=== PATIENT | male | born 1945 | race Caucasian/White ===

== ENCOUNTER 2016-12-29 08:47 | Day surgery (SDC) | payer MEDICARE, BC ==
[2016-12-28 13:00] VITALS: BMI 20.7
[~2016-12-29 08:47] MED LIST: LIDOCAINE 1% 20 ML VIAL (10MG/ML) FOR IV START INTRADERMA PRN
[2016-12-29] MEDS: LACTATED RINGERS 1,000 ML IV SCH ×2 (09:50→09:59)
[2016-12-29 09:59] VITALS: TEMP 98
[2016-12-29] MEDS ORDERED: PROPOFOL 10 MG/ML 20 ML VIAL IV ONE (10:03)
[2016-12-29] MEDS ORDERED: LIDOCAINE 1% INJ 10MG/ML (20 ML MDV) ONE (10:03)
--- NOTE | 2016-12-29 10:19 | P.GSHP ---
History of Present Illness H&P Date: 12/29/16 Chief Complaint: Change in bowel habits Patient here today for colonoscopy. He describes worsening constipation recently. No rectal bleeding or melena. Last colonoscopy approximately 5 years ago which was normal. Past Medical History Past Medical History: Blood Disorder, GERD/Reflux, Hypertension Additional Past Medical History / Comment(s): HX of Stomach ulcer., Anemia, Constipation. History of Any Multi-Drug Resistant Organisms: None Reported Past Surgical History: Back Surgery, Tonsillectomy Additional Past Surgical History / Comment(s): laminectomy. Left middle finger surgery. Past Anesthesia/Blood Transfusion Reactions: No Reported Reaction Past Psychological History: No Psychological Hx Reported Smoking Status: Current every day smoker Past Alcohol Use History: Occasional Additional Past Alcohol Use History / Comment(s): SMOKES A PIPE. QUIT SMOKING CIGARETTES 15 YEARS AGO. Past Drug Use History: None Reported - Past Family History Father Family Medical History: Cancer Additional Family Medical History / Comment(s): . Mother Family Medical History: GI Bleed Medications and Allergies Home Medications Medication Instructions Recorded Confirmed Type amLODIPine [Norvasc] 5 mg PO BID 08/05/15 12/29/16 History Moexipril HCl [Univasc] 15 mg PO BID 08/06/15 12/29/16 History Omeprazole 20 mg PO BID 08/06/15 12/29/16 History Bisacodyl [Dulcolax] 5 mg PO DAILY PRN 12/28/16 12/29/16 History Allergies Allergy/AdvReac Type Severity Reaction Status Date / Time No Known Allergies Allergy Verified 12/29/16 09:41 Surgical - Exam Vital Signs Temp Pulse Resp BP Pulse Ox 98.0 F 81 18 169/84 98 12/29/16 09:57 12/29/16 09:57 12/29/16 09:57 12/29/16 09:57 12/29/16 09:57 Physical exam: General: Well-developed, well-nourished HEENT: Normocephalic, sclerae nonicteric Abdomen: Nontender, nondistended Extremities: No edema Neuro: Alert and oriented Assessment and Plan (1) Change in bowel habits Narrative/Plan: Will proceed with colonoscopy at this time Status: Acute
--- NOTE | 2016-12-29 10:21 | P.PCN ---
Date of Procedure: 12/29/16 Procedure(s) Performed: PREOPERATIVE DIAGNOSIS: Change in bowel habits POSTOPERATIVE DIAGNOSIS: Diverticulosis PROCEDURE: Colonoscopy ANESTHESIA: MAC SURGEON: Abelardo Rodríguez M.D. SPECIMENS: None ENDOSCOPIC PROCEDURE: The patient was placed on the endoscopy table in the left decubitus position. The Olympus colonoscope was inserted into the anus and passed under direct visualization to the base of the cecum. The appendiceal orifice was visualized. From that point the scope was slowly withdrawn inspecting all surfaces carefully. There were no neoplastic inflammatory or polypoid lesions throughout the cecum, ascending, transverse, descending, sigmoid and rectum. There was mild to moderate diverticulosis noted in the left colon. Digital rectal examination was normal. The patient was taken to the recovery room in stable condition per anesthesia guidelines. RECOMMENDATIONS: Increase fiber. Follow colonoscopy 10 years
[2016-12-29 10:31] VITALS: RESP 16
[2016-12-29 10:49] VITALS: BP 136/74; PULSE 70
== END 2016-12-29 10:55 | disposition home or self-care (01) ==
LOC: ORWHC2ENDO 08:47
PROVIDERS: ATTEND Surgery
DX: K57.30 Diverticulosis of large intestine without perforation or abscess without bleeding (principal); K59.00 Constipation, unspecified; I10 Essential (primary) hypertension; K21.9 Gastro-esophageal reflux disease without esophagitis; D64.9 Anemia, unspecified; F17.290 Nicotine dependence, other tobacco product, uncomplicated; Z87.891 Personal history of nicotine dependence; Z79.899 Other long term (current) drug therapy; Z87.11 Personal history of peptic ulcer disease
CPT/HCPCS: 45378; J2001; J2704

== ENCOUNTER 2017-02-08 10:48 | Inpatient (IN) | payer MEDICARE, BC ==
--- NOTE | 2017-02-08 11:43 | ED ---
General Adult HPI - General Chief complaint: Shortness of Breath Stated complaint: Dyspnea Time Seen by Provider: 02/08/17 11:29 Source: patient, RN notes reviewed Mode of arrival: wheelchair Limitations: no limitations - History of Present Illness Initial comments: Patient is a pleasant 71-year-old male presenting to the emergency Department with complaints of shortness of breath. Onset of symptoms was a couple of days ago. Patient only has occasional cough that is nonproductive however patient does have discomfort with cough. Patient does smoke tobacco from a pipe however has never been diagnosed with COPD. Patient did go to an urgent care prior to arrival. Patient received nebulizer treatment without much improvement. Chest x-ray was concerning for pneumonia patient was advised come to the emergency department. Patient did recently have oxygen placed while in the emergency department and states that seems to be helping a little bit. - Related Data Home Medications Medication Instructions Recorded Confirmed amLODIPine [Norvasc] 5 mg PO BID 08/05/15 02/08/17 Moexipril HCl [Univasc] 15 mg PO BID 08/06/15 02/08/17 Omeprazole 20 mg PO BID 08/06/15 02/08/17 Bisacodyl [Dulcolax] 5 mg PO DAILY PRN 12/28/16 02/08/17 Melatonin 10 mg PO HS 02/08/17 02/08/17 Allergies Allergy/AdvReac Type Severity Reaction Status Date / Time No Known Allergies Allergy Verified 02/08/17 11:43 Review of Systems ROS Statement: Those systems with pertinent positive or pertinent negative responses have been documented in the HPI. ROS Other: All systems not noted in ROS Statement are negative. Constitutional: Denies: fever Eyes: Denies: eye pain ENT: Denies: ear pain Respiratory: Reports: dyspnea Cardiovascular: Reports: chest pain (Only with cough) Endocrine: Denies: fatigue Gastrointestinal: Denies: abdominal pain Genitourinary: Denies: dysuria Musculoskeletal: Denies: back pain Skin: Denies: rash Neurological: Denies: weakness Past Medical History Past Medical History: Blood Disorder, GERD/Reflux, Hypertension Additional Past Medical History / Comment(s): HX of Stomach ulcer., Anemia, Constipation. History of Any Multi-Drug Resistant Organisms: None Reported Past Surgical History: Back Surgery, Tonsillectomy Additional Past Surgical History / Comment(s): laminectomy. Left middle finger surgery. Past Anesthesia/Blood Transfusion Reactions: No Reported Reaction Past Psychological History: No Psychological Hx Reported Smoking Status: Current every day smoker Past Alcohol Use History: Occasional Past Drug Use History: None Reported - Past Family History Father Family Medical History: Cancer Additional Family Medical History / Comment(s): . Mother Family Medical History: GI Bleed General Exam Limitations: no limitations General appearance: alert Head exam: Present: atraumatic Eye exam: Present: normal appearance, PERRL ENT exam: Present: normal oropharynx Neck exam: Present: normal inspection Respiratory exam: Present: respiratory distress (Mild respiratory distress), decreased breath sounds Cardiovascular Exam: Present: tachycardia GI/Abdominal exam: Present: soft. Absent: tenderness Extremities exam: Present: normal inspection. Absent: pedal edema, calf tenderness Neurological exam: Present: alert Psychiatric exam: Present: normal affect, normal mood Skin exam: Present: normal color Course Vital Signs 02/08/17 02/08/17 02/08/17 10:53 11:37 13:14 Temperature 97.9 F 97.7 F Pulse Rate 100 100 100 Respiratory 22 22 22 Rate Blood Pressure 138/82 168/101 191/102 O2 Sat by Pulse 99 99 99 Oximetry 02/08/17 02/08/17 14:27 14:41 Temperature Pulse Rate 101 H 107 H Respiratory 18 18 Rate Blood Pressure 182/102 171/98 O2 Sat by Pulse 100 100 Oximetry EKG Findings - EKG Comments: EKG Findings:: Normal sinus rhythm 99. ND 120. QRS 84. QT 352. QTC 451. Normal axis. Normal QRS. No acute ST change. Medical Decision Making - Medical Decision Making Patient reexamined and updated. Case discussed in detail with Dr. Dewitt, including CT results, who will admit his patient. Patient does meet sepsis criteria. IV antibiotics have been started. Blood cultures and lactic acid have been ordered. Patient did meet sepsis criteria at 12:51 PM. - Lab Data Result diagrams: 02/08/17 11:30 02/08/17 11:30 Lab Results 02/08/17 02/08/17 02/08/17 Range/Units 11:30 11:30 11:30 WBC 14.6 H (3.8-10.6) k/uL RBC 4.62 (4.30-5.90) m/uL Hgb 12.4 L (13.0-17.5) gm/dL Hct 40.4 (39.0-53.0) % MCV 87.4 (80.0-100.0) fL MCH 26.9 (25.0-35.0) pg MCHC 30.8 L (31.0-37.0) g/dL RDW 17.8 H (11.5-15.5) % Plt Count 528 H (150-450) k/uL Neutrophils % 93 % Lymphocytes % 4 % Monocytes % 3 % Eosinophils % 0 % Basophils % 0 % Neutrophils # 13.6 H (1.3-7.7) k/uL Lymphocytes # 0.5 L (1.0-4.8) k/uL Monocytes # 0.4 (0-1.0) k/uL Eosinophils # 0.0 (0-0.7) k/uL Basophils # 0.0 (0-0.2) k/uL Hypochromasia Marked Anisocytosis Slight PT (9.0-12.0) sec INR (<1.2) APTT (22.0-30.0) sec D-Dimer (<0.60) mg/L FEU Sodium 137 (137-145) mmol/L Potassium 4.5 (3.5-5.1) mmol/L Chloride 106 (98-107) mmol/L Carbon Dioxide 23 (22-30) mmol/L Anion Gap 8 mmol/L BUN 7 L (9-20) mg/dL Creatinine 0.85 (0.66-1.25) mg/dL Est GFR (MDRD) Af Amer >60 (>60 ml/min/1.73 sqM) Est GFR (MDRD) Non-Af >60 (>60 ml/min/1.73 sqM) Glucose 107 H (74-99) mg/dL Plasma Lactic Acid Paras (0.7-2.0) mmol/L Calcium 8.7 (8.4-10.2) mg/dL Total Bilirubin 0.7 (0.2-1.3) mg/dL AST 31 (17-59) U/L ALT 27 (21-72) U/L Alkaline Phosphatase 90 (38-126) U/L Total Creatine Kinase 39 L (55-170) U/L CK-MB (CK-2) 0.3 (0.0-2.4) ng/mL CK-MB (CK-2) Rel Index 0.8 Troponin I <0.012 (0.000-0.034) ng/mL Total Protein 6.8 (6.3-8.2) g/dL Albumin 3.4 L (3.5-5.0) g/dL 02/08/17 02/08/17 Range/Units 11:30 12:20 WBC (3.8-10.6) k/uL RBC (4.30-5.90) m/uL Hgb (13.0-17.5) gm/dL Hct (39.0-53.0) % MCV (80.0-100.0) fL MCH (25.0-35.0) pg MCHC (31.0-37.0) g/dL RDW (11.5-15.5) % Plt Count (150-450) k/uL Neutrophils % % Lymphocytes % % Monocytes % % Eosinophils % % Basophils % % Neutrophils # (1.3-7.7) k/uL Lymphocytes # (1.0-4.8) k/uL Monocytes # (0-1.0) k/uL Eosinophils # (0-0.7) k/uL Basophils # (0-0.2) k/uL Hypochromasia Anisocytosis PT 9.8 (9.0-12.0) sec INR 1.0 (<1.2) APTT 21.3 L (22.0-30.0) sec D-Dimer 7.72 H (<0.60) mg/L FEU Sodium (137-145) mmol/L Potassium (3.5-5.1) mmol/L Chloride (98-107) mmol/L Carbon Dioxide (22-30) mmol/L Anion Gap mmol/L BUN (9-20) mg/dL Creatinine (0.66-1.25) mg/dL Est GFR (MDRD) Af Amer (>60 ml/min/1.73 sqM) Est GFR (MDRD) Non-Af (>60 ml/min/1.73 sqM) Glucose (74-99) mg/dL Plasma Lactic Acid Paras 2.9 H* (0.7-2.0) mmol/L Calcium (8.4-10.2) mg/dL Total Bilirubin (0.2-1.3) mg/dL AST (17-59) U/L ALT (21-72) U/L Alkaline Phosphatase (38-126) U/L Total Creatine Kinase (55-170) U/L CK-MB (CK-2) (0.0-2.4) ng/mL CK-MB (CK-2) Rel Index Troponin I (0.000-0.034) ng/mL Total Protein (6.3-8.2) g/dL Albumin (3.5-5.0) g/dL - Radiology Data Radiology results: report reviewed (Computed tomography scan of the chest shows no PE. Opacities left greater than right. Distal esophageal wall thickening. Correlate for esophagitis or neoplasm. Upper abdominal edema and fluid. Correlate for pancreatitis. Consider peptic ulcer disease. No air in the upper abdomen. Pulmonary nodule. Pancreatic tail lesion.), image reviewed (Two -view chest x-ray concerning for patchy infiltrate bilateral lower lungs.) Critical Care Time Critical Care Time: Yes Total Critical Care Time: 34 Disposition Clinical Impression: Sepsis, Pneumonia Disposition: ADMITTED IP TO THIS HOSP Condition: Serious Referrals: Tc Steinberg Jr, DO [Primary Care Provider] - 1-2 days Decision Time: 15:16
[2017-02-08 11:55] LABS: Anisocytosis Slight; Basophils % (A) 0 %; CH 26.2; CHCM 30.2; Eosinophils % (A) 0 %; HCT 40.4 % (39.0-53.0); HDW 3.21; HGB 12.4 gm/dL (13.0-17.5); Hypochromasia Marked; Luc # (Auto) 0.05; Luc % (Auto) 0; Lymphocytes # (A) 0.5 k/uL (1.0-4.8); Lymphocytes % (A) 4 %; MCH 26.9 pg (25.0-35.0); MCHC 30.8 g/dL (31.0-37.0); MCV 87.4 fL (80.0-100.0); Mean Platelet Volume 7.1; Monocytes # (A) 0.4 k/uL (0-1.0); Monocytes % (A) 3 %; Neutrophils # (A) 13.6 k/uL (1.3-7.7); Neutrophils % (A) 93 %; RBC 4.62 m/uL (4.30-5.90); RDW 17.8 % (11.5-15.5); WBC 14.6 k/uL (3.8-10.6); WBC (Perox) 14.49
[2017-02-08 12:10] LABS: ALT 27 U/L (21-72); AST 31 U/L (17-59); Alkaline Phosphatase 90 U/L (38-126); Anion Gap 8 mmol/L; Blood Urea Nitrogen 7 mg/dL (9-20); Calcium 8.7 mg/dL (8.4-10.2); Carbon Dioxide 23 mmol/L (22-30); Chloride 106 mmol/L (98-107); Glucose 107 mg/dL (74-99); Non-African American GFR(MDRD) >60 (>60 ml/min/1.73 sqM); Potassium 4.5 mmol/L (3.5-5.1); Sodium 137 mmol/L (137-145); Total Bilirubin 0.7 mg/dL (0.2-1.3); Total Protein 6.8 g/dL (6.3-8.2)
--- NOTE | 2017-02-08 12:14 | XR ---
EXAMINATION TYPE: XR chest 2V DATE OF EXAM: 02/08/2017 COMPARISON: None HISTORY: 71 year-old male shortness of breath, dyspnea TECHNIQUE: PA and lateral views FINDINGS: Heart is normal size. Atherosclerotic arch calcifications. Posterior fusion screws in the mid thoraci c spine with chronic-appearing anterior wedging in the mid thoracic spine. There are patchy bibasilar opacities and possible trace effusions. IMPRESSION: 1. Patchy infiltrates in the lower lungs could represent infectious or aspiration pneumonitis. Follow -up after treatment to assess for clearance. 2. Possible trace effusions.
[2017-02-08 12:21] LABS: Creatine Kinase 39 U/L (55-170)
[2017-02-08 12:32] LABS: Prothrombin Time 9.8 sec (9.0-12.0)
[2017-02-08 12:33] LABS: Creatine Kinase MB 0.3 ng/mL (0.0-2.4); Troponin I <0.012 ng/mL (0.000-0.034)
[2017-02-08 12:45] LABS: Partial Thromboplastin Time 21.3 sec (22.0-30.0)
[2017-02-08] MEDS ORDERED: RX INFO: IV CONTRAST WAS GIVEN 1 EACH MISC MISCELLANE PRN (12:49)
[2017-02-08] MEDS ORDERED: cefTRIAXone IN SWFI 1,000 MG/10 ML SYRINGE IVP STA (12:50)
[2017-02-08] MEDS ORDERED: amLODIPine 5 MG TAB PO STA (13:16)
[2017-02-08] MEDS ORDERED: LISINOPRIL 5 MG TAB PO STA (13:17)
[2017-02-08] MEDS ORDERED: LISINOPRIL 20 MG TAB PO STA (13:50)
--- NOTE | 2017-02-08 14:11 | CT ---
EXAMINATION TYPE: CT angio chest DATE OF EXAM: 02/08/2017 COMPARISON: Radiograph same day HISTORY: 71-year-old male Chest Pain/SOB TECHNIQUE: Contiguous axial scanning of the chest performed with IV Contrast, patient injected with 7 1 mL of Omnipaque 350. Coronal/sagittal MIP reconstructions performed. CT DLP: 138.1 mGycm Automated exposure control for dose reduction was used. FINDINGS: 5 mm hypodense nodule right lobe of the thyroid gland. The heart is normal size without pericardial effusion. Coronary vessel calcifications are present in the remarkable for coronary artery disease. Aorta is normal caliber with mild to moderate atherosclerotic arch calcifications. Satisfactory opacification of the pulmonary arterial system without evidence for pulmonary embolus. There is moderate circumferential wall thickening along the distal third thoracic esophagus and possi ble underlying moderate-sized hiatal hernia versus abnormal circumferential thickening and adjacent p osterior mediastinal edema Mild centrilobular emphysema. 3 mm pulmonary nodule in 6 mm pulmonary nodule peripheral and anterior right mid lung, respectively, on axial images 76 and 77. Additional small 3 mm pulmonary nodule along the minor fissure, axial image 89. There are small pleural effusions with patchy opacities at the left greater than right lung bases. 6 no lytic or pulmonary nodule posterior left mid lung axial image 52. Visualized upper abdomen shows focal ovoid hypodensity within the pancreas measuring 1.2 x 0.5 cm at the pancreatic tail level. Possible andrae hepatic lymph node measuring 1.4 cm axial image 151. Right kidney atrophic. Indeterminate nodularity of the left adrenal gland measuring 2.1 cm. There is prominent fluid along the retroperitoneum of the upper abdomen extending into the gastrohepa tic ligament region causing loss of distinction with the posterior gastric fundus, axial image 119. Bones: Endplate spondylosis throughout the thoracic spine. No osseous destructive process. Posterior fusion screw is within the mid thoracic spine and chronic-appearing anterior wedging of a couple mid thoracic vertebral bodies with essentially limited midthoracic kyphosis. IMPRESSION: 1. NO EVIDENCE FOR PULMONARY EMBOLUS. 2. SMALL EFFUSIONS WITH PATCHY LEFT GREATER THAN RIGHT BIBASILAR OPACITIES. CORRELATE TO EXCLUDE INFE CTIOUS INFILTRATES HERE. 3. MODERATE CIRCUMFERENTIAL WALL THICKENING ALONG THE DISTAL THIRD ESOPHAGUS AND POSSIBLE UNDERLYING MODERATE-SIZED HIATAL HERNIA. PRESENCE OF PROMINENT PARAESOPHAGEAL EDEMA AND FLUID LIMITS ASSESSMENT. UNDERLYING ESOPHAGITIS OR DISTAL ESOPHAGEAL NEOPLASM SHOULD BE EXCLUDED. 4. EDEMA AND FLUID TRACKS ALONG THE UPPER ABDOMINAL RETROPERITONEUM, ANTERIOR MARGIN OF THE PANCREAS, AND IN THE GASTROHEPATIC LIGAMENT REGION. CORRELATE TO EXCLUDE PANCREATITIS. 5. THERE IS POOR DELINEATION BETWEEN THE FLUID AND THE POSTERIOR GASTRIC FUNDUS. PEPTIC ULCER DISEASE CAN ALSO BE CORRELATED FOR CLINICALLY THOUGH PERFORATED GASTRIC ULCER IS CONSIDERED MUCH LESS LIKELY GIVEN THE LACK OF ANY FREE AIR WITHIN THE UPPER ABDOMEN. 6. SCATTERED PULMONARY NODULES MEASURING UP TO 6 MM. 3-6 MONTH FOLLOW-UP EXAM TO REASSESS. 7. A 1.2 CM HYPOECHOIC LESION IN THE PANCREATIC TAIL. THIS CAN BE REASSESSED AT FOLLOW-UP. SIX-MONTH PANCREAS MRI CAN BE CONSIDERED.
[2017-02-08] MEDS ORDERED: DILTIAZEM 5 MG/ML 5 ML VIAL IVP STA (14:55)
[2017-02-08] MEDS ORDERED: PNEUMONIA PROTOCOL UTILIZED 1 EACH MISC PO PRN (15:16)
[2017-02-08] MEDS ORDERED: IPRATROPIUM-ALBUTEROL 3 ML NEB INHALATION PRN (15:16)
[2017-02-08] MEDS ORDERED: AZITHROMYCIN 500 MG in SODIUM CHLORIDE 0.9% 250 ML IVPB STA (15:16)
[2017-02-08 15:52] LABS: Amylase 411 U/L (30-110)
[2017-02-08] MEDS: SODIUM CHLORIDE 0.9% 1,000 ML IV SCH (15:57)
[2017-02-08] MEDS: IPRATROPIUM-ALBUTEROL 3 ML NEB INHALATION SCH ×2 (17:01→20:58)
[2017-02-08] MEDS: PANTOPRAZOLE 40 MG/10 ML VIAL IVP SCH (17:43)
[2017-02-08 19:41] LABS: Appearance,Urine Clear (Clear); Bilirubin,Urine Negative (Negative); Glucose,Urine (UA) Trace (Negative); Ketones,Urine 2+ (Negative); Leukocyte Esterase,Urine Negative (Negative); Mucus,Urine Rare /hpf; Nitrite,Urine Negative (Negative); PH, Urine 6.5 (5.0-8.0); Particle Count 1712; Protein,Urine 1+ (Negative); RBC,Urine 1 /hpf (0-5); Squamous Epithelial Cell,Urine <1 /hpf (0-4); UA Billing (MACRO vs. MICRO) MICRO; Urobilinogen,Urine <2.0 mg/dL (<2.0); WBC,Urine 2 /hpf (0-5)
[2017-02-08 19:48] LABS: Specific Gravity,Urine >1.050 (1.001-1.035)
[2017-02-08] MEDS: IBUPROFEN 400 MG TAB PO PRN (23:16)
[2017-02-08] MEDS: MELATONIN 5 MG TABLET PO PRN (23:16)
[2017-02-08] MEDS: diphenhydrAMINE 50 MG CAP PO PRN (23:16)
[2017-02-09] MEDS: SODIUM CHLORIDE 0.9% 1,000 ML IV SCH ×4 (04:21→16:47)
--- NOTE | 2017-02-09 07:38 | XR ---
EXAMINATION TYPE: XR chest 2V DATE OF EXAM: 02/09/2017 COMPARISON: 02/08/2017 HISTORY: Pneumonia TECHNIQUE: Frontal and lateral views of the chest are obtained. FINDINGS: Persistent trace right pleural effusions blunt the costophrenic angles with associated bas ilar atelectasis, right greater than left. Posterior thoracic fusion screws are seen within the mid t horacic spine and the known compression deformity is not well visualized on the frontal image. Cardio mediastinal silhouette is within normal limits. Mild degenerative changes chromic clavicular joints a re present. IMPRESSION: Persistent trace pleural effusions and bibasilar atelectasis. No new focal consolidation .
[2017-02-09] MEDS: IPRATROPIUM-ALBUTEROL 3 ML NEB INHALATION SCH ×2 (07:59→11:04)
[2017-02-09 08:31] LABS: Anisocytosis Slight; Basophils % (A) 0 %; CH 26.7; CHCM 29.2; Eosinophils # (A) 0.1 k/uL (0-0.7); Eosinophils % (A) 1 %; HCT 36.1 % (39.0-53.0); HGB 10.3 gm/dL (13.0-17.5); Hypochromasia Marked; Luc # (Auto) 0.17; Luc % (Auto) 1; Lymphocytes % (A) 5 %; MCH 26.1 pg (25.0-35.0); MCHC 28.4 g/dL (31.0-37.0); Mean Platelet Volume 6.7; Monocytes % (A) 5 %; Neutrophils # (A) 15.7 k/uL (1.3-7.7); Neutrophils % (A) 88 %; RBC 3.93 m/uL (4.30-5.90); RDW 16.6 % (11.5-15.5); WBC 17.9 k/uL (3.8-10.6); WBC (Perox) 18.85
[2017-02-09 09:10] LABS: ALT 23 U/L (21-72); AST 16 U/L (17-59); Alkaline Phosphatase 73 U/L (38-126); Amylase 269 U/L (30-110); Anion Gap 10 mmol/L; Blood Urea Nitrogen 12 mg/dL (9-20); Calcium 8.5 mg/dL (8.4-10.2); Carbon Dioxide 19 mmol/L (22-30); Chloride 108 mmol/L (98-107); Glucose 112 mg/dL (74-99); Non-African American GFR(MDRD) >60 (>60 ml/min/1.73 sqM); Potassium 4.8 mmol/L (3.5-5.1); Sodium 137 mmol/L (137-145); Total Bilirubin 0.3 mg/dL (0.2-1.3)
[2017-02-09] MEDS: PANTOPRAZOLE 40 MG/10 ML VIAL IVP SCH (09:32)
[2017-02-09 10:43] VITALS: BMI 20.7
--- NOTE | 2017-02-09 11:50 | P.CONS ---
History of Present Illness - Reason for Consult Consult date: 02/09/17 pancreatitis Requesting physician: Tc Steinberg Jr - History of Present Illness 71 year old male admitted with shortness of breath and elevated pancreatic enzymes. CT chest reported no PE, moderate circumferential wall thickening distal 1/3 thoracic esophagus possible paraesophageal hernia. PUD and neoplasm could not be excluded. Poor delineation between the fluid in the posterior gastric fundus peptic ulcer disease within the differential. Edema and fluid tracking along the upper abdomen and retroperitoneum anterior margin of the pancreas, pancreatitis cannot be excluded. Additional 1.2 cm hypoechoic lesion in tail of pancrease was identified. Lipase 3758. Amylase 411. LFTs normal. Lactic acid elevated 3.7. D-Dimer 7.72. repeat lactic acid 1.1. patient denies abdominal pain nausea vomiting. 10 pound weight loss over the last few months which he thinks is from stress and caring for his elderly mother. His less than a year ago. No current alcohol consumption. When he was younger he drank more heavily. Denies fever or chills hematemesis hematochezia melena. No history of pancreatitis. No current EtOH. EGD more than 5 years ago with findings of a small ulcer. X-ray persistent trace pleural effusions and by basilar atelectasis. No new focal consolidation. Review of Systems Constitutional: Denies fever, chills, sweats, weight gain, or loss. HEENT: Negative for migraines, blurred vision or loss, earaches, drainage, tinnitus, oral mucosal lesions, dysphagia, or odynophagia. Cardiac: Hypertension. Negative for chest pain, arrhythmias, or palpitation. Respiratory: Negative for shortness of breath, hemoptysis, cough, or sputum production. Gastrointestinal: See HPI for pertinent findings. Genitourinary: Negative for hematuria, urgency, frequency, polyuria, dysuria, or penile discharge. Musculoskeletal: Negative for muscle aches, swelling, arthritis, and arthralgias. Neurologic: Negative for stroke or TIA. Endocrine: Negative for thyroid problems. Skin: Negative for rash or itching. Psychiatric: Negative history for depression and anxiety All systems: negative (See HPI) Past Medical History Past Medical History: Blood Disorder, GERD/Reflux, Hypertension Additional Past Medical History / Comment(s): HX of Stomach ulcer., Anemia, Constipation.DIVERTICULOSIS(PER COLONOSCOPY) History of Any Multi-Drug Resistant Organisms: None Reported Past Surgical History: Back Surgery, Tonsillectomy Additional Past Surgical History / Comment(s): laminectomy, DENTAL IMPLANTS, COLONOSCOPY. Left middle finger surgery. Past Anesthesia/Blood Transfusion Reactions: No Reported Reaction Smoking Status: Current every day smoker - Past Family History Father Family Medical History: Cancer Additional Family Medical History / Comment(s): . Mother Family Medical History: GI Bleed Medications and Allergies Home Medications Medication Instructions Recorded Confirmed Type amLODIPine [Norvasc] 5 mg PO BID 08/05/15 02/08/17 History Moexipril HCl [Univasc] 15 mg PO BID 08/06/15 02/08/17 History Omeprazole 20 mg PO BID 08/06/15 02/08/17 History Bisacodyl [Dulcolax] 5 mg PO DAILY PRN 12/28/16 02/08/17 History Melatonin 10 mg PO HS 02/08/17 02/08/17 History Allergies Allergy/AdvReac Type Severity Reaction Status Date / Time No Known Allergies Allergy Verified 02/08/17 11:43 Physical Exam Vitals: Vital Signs Temp Pulse Pulse Resp BP BP Pulse Ox 02/08/17 21:35 97.7 F 100 16 131/92 98 02/08/17 21:12 74 02/08/17 20:58 78 02/08/17 17:57 96.7 F L 115 H 18 149/92 97 02/08/17 17:35 18 02/08/17 17:14 80 02/08/17 17:11 99 02/08/17 17:06 78 02/08/17 15:59 97.4 F L 105 H 18 169/86 100 02/08/17 15:16 94 L 02/08/17 14:41 107 H 18 171/98 100 02/08/17 14:27 101 H 18 182/102 100 02/08/17 13:14 100 22 191/102 99 02/08/17 11:37 97.7 F 100 22 168/101 99 02/08/17 10:53 97.9 F 100 22 138/82 99 Intake and Output 02/08/17 02/08/17 02/09/17 14:59 22:59 06:59 Intake Total 800 Balance 800 Intake: Intake, IV Titration 800 Amount Sodium Chloride 0.9% 1, 800 000 ml @ 100 mls/hr IV . Q10H [facility] Rx#:[id number] Other: # Voids 1 Weight 56.699 kg Patient Weight 02/09/17 06:59 Weight 56.699 kg General appearance: The patient is alert, oriented, in no acute distress. HET: Head is normocephalic and atraumatic. Pupils are equal and reactive. Oropharynx is clear without lesions. Neck: Supple without lymphadenopathy. Trachea midline. Heart: S1 S2. Regular rate and rhythm. Lungs: No crackles or wheezes are heard. Abdomen: Soft, nontender, nondistended with bowel sounds. No peritoneal signs. No palpable organomegaly or masses. Extremities: Normal skin color and turgor. No cyanosis, rash, ulceration, clubbing, or edema. Radial and pedal pulses are 2/4 bilaterally. Neurological: No focal deficits. Strength and sensation are grossly intact. Results CBC & Chem 7: 02/09/17 08:12 02/09/17 08:15 Labs: Abnormal Lab Results - Last 24 Hours (Table) 02/08/17 02/08/17 02/08/17 Range/Units 11:30 11:30 11:30 WBC 14.6 H (3.8-10.6) k/uL Hgb 12.4 L (13.0-17.5) gm/dL MCHC 30.8 L (31.0-37.0) g/dL RDW 17.8 H (11.5-15.5) % Plt Count 528 H (150-450) k/uL Neutrophils # 13.6 H (1.3-7.7) k/uL Lymphocytes # 0.5 L (1.0-4.8) k/uL APTT (22.0-30.0) sec D-Dimer (<0.60) mg/L FEU BUN 7 L (9-20) mg/dL Glucose 107 H (74-99) mg/dL Plasma Lactic Acid Paras (0.7-2.0) mmol/L Total Creatine Kinase 39 L (55-170) U/L Albumin 3.4 L (3.5-5.0) g/dL Amylase (30-110) U/L Lipase (23-300) U/L Ur Specific [place] (1.001-1.035) Urine Protein (Negative) Urine Glucose (UA) (Negative) Urine Ketones (Negative) Urine Mucus (None) /hpf 02/08/17 02/08/17 02/08/17 Range/Units 11:30 11:30 12:20 WBC (3.8-10.6) k/uL Hgb (13.0-17.5) gm/dL MCHC (31.0-37.0) g/dL RDW (11.5-15.5) % Plt Count (150-450) k/uL Neutrophils # (1.3-7.7) k/uL Lymphocytes # (1.0-4.8) k/uL APTT 21.3 L (22.0-30.0) sec D-Dimer 7.72 H (<0.60) mg/L FEU BUN (9-20) mg/dL Glucose (74-99) mg/dL Plasma Lactic Acid Paras 2.9 H* (0.7-2.0) mmol/L Total Creatine Kinase (55-170) U/L Albumin (3.5-5.0) g/dL Amylase 411 H* (30-110) U/L Lipase 3758 H (23-300) U/L Ur Specific [place] (1.001-1.035) Urine Protein (Negative) Urine Glucose (UA) (Negative) Urine Ketones (Negative) Urine Mucus (None) /hpf 02/08/17 02/08/17 Range/Units 16:59 19:28 WBC (3.8-10.6) k/uL Hgb (13.0-17.5) gm/dL MCHC (31.0-37.0) g/dL RDW (11.5-15.5) % Plt Count (150-450) k/uL Neutrophils # (1.3-7.7) k/uL Lymphocytes # (1.0-4.8) k/uL APTT (22.0-30.0) sec D-Dimer (<0.60) mg/L FEU BUN (9-20) mg/dL Glucose (74-99) mg/dL Plasma Lactic Acid Paras 3.7 H* (0.7-2.0) mmol/L Total Creatine Kinase (55-170) U/L Albumin (3.5-5.0) g/dL Amylase (30-110) U/L Lipase (23-300) U/L Ur Specific [place] >1.050 H (1.001-1.035) Urine Protein 1+ H (Negative) Urine Glucose (UA) Trace H (Negative) Urine Ketones 2+ H (Negative) Urine Mucus Rare H (None) /hpf Microbiology - Last 24 Hours (Table) 02/08/17 19:28 Urine Culture - Preliminary Urine,Clean Catch Abdominal x-ray: report reviewed (Dr. Waterman) CT scan - chest: report reviewed (Dr. Waterman) Assessment and Plan (1) Pancreatitis Narrative/Plan: CT chest excluded pulmonary embolism however distal one third thoracic esophagus with circumferential wall thickening possible paraesophageal hiatal hernia possible peptic ulcer disease possible neoplasm. Hyperechoic lesion in the tail of the pancreas 1.2 cm with surrounding edema inflammation suggestive of acute pancreatitis. Differentials to consider for cause of pancreatitis possible peptic ulcer disease possible idiopathic malignancy cannot be entirely excluded. Current Visit: Yes Status: Acute Code(s): K85.90 - ACUTE PANCREATITIS WITHOUT NECROSIS OR INFECTION, UNSP SNOMED Code(s): 08106323 Plan: 1. Protonix 40 mg IV daily. CA-19-9 marker. CEA. Repeat lactic acid. patient is requesting discharge today to care for his elderly mother. from a GI standpoint agreeable for discharge his pancreatic enzymes and lactic acid improve; we'll defer to medicine for discharge recommendations. If patient is discharged today would be agreeable proceeding with EGD evaluation on 2016 to give a few additional days for pancreatic enzymes to settle down followed by outpatient MRI for further evaluation of pancreatic cystic lesion and pancreatitis. 2. IV hydration. Evaluation of pancreatic enzymes daily. In regards to hypoechoic lesion in the pancreatic tail we'll proceed with MRI imaging once pancreatitis has resolved. 3. discharge Protonix 40 mg daily. 4. Return to office in 2 weeks for reevaluation. The jewel bearing facer has discussed the risks, benefits and alternative therapies for the above-mentioned procedure and for both sedation/analgesia as well as necessary blood product administration, if indicated, as they pertain to this patient. The patient has indicated understanding and acceptance of the risks and procedures discussed. Thank you for this kind referral and the opportunity to participate in the care of your patient. This consultation was discussed with Dr. Waterman. The impression and plan of care have been directed as dictated.
[2017-02-09] MEDS: MORPHINE SULFATE 10 MG/ML SYRINGE IVP PRN ×3 (13:49→21:55)
--- NOTE | 2017-02-09 13:57 | P.PN ---
Progress Note - Text Progress Note Date: 02/09/17 Discharge on hold secondary to episode of respiratory distress. Outpatient EGD cancelled. Tentative EGD evaluation tomorrow pending stabilization of respiratory status. Repeat lipase in am. NPO after midnight. Inpatient MRI versus outpatient MRI pending clinical course.
--- NOTE | 2017-02-09 14:27 | P.HPIM ---
History of Present Illness H&P Date: 02/09/17 Chief Complaint: Shortness of breath 71-year-old male who presented to the emergency room on 02/08/2017 with a chief complaint of shortness of breath and coughing for the past 2-3 days. The patient presented to urgent care earlier in the day and a chest x-ray was completed which was suggestive of pneumonia and the patient was advised to come to the emergency room for further evaluation. The patient has a history of hypertension, GERD, diverticulosis, and anemia. The patient is a former cigarette smoker. He states he now smokes tobacco appetite. The patient stated it is the equivalent to 2-3 packs of cigarettes a day. The patient also states he has a daily alcohol drinker and states he drinks at least 3 beers daily. In the emergency room a chest x-ray was completed which showed bilateral lower lobe patchy infiltrates and possible trace pleural effusions. The patient's white count was elevated at 14.6. His hemoglobin was 12.4. His lactic acid was 2.9. Repeat lactic acid was 3.7. Troponin was negative 1. Amylase was elevated at 411 and lipase was elevated at 3758. LFTs were within normal range. D-dimer was elevated at 7.72. Patient underwent CT of the chest which was negative for a pulmonary embolus. However it did show small effusions with patchy left greater than right bibasilar opacities. Moderate wall thickening of the distal esophagus was seen with a possible moderately sized hiatal hernia. Edema and fluid tracking along the upper abdominal retroperitoneum, anterior margin of the pancreas, and in the gastrohepatic ligament region in which pancreatitis could not be excluded. Additionally there was poor delineation between the fluid in the posterior gastric fundus and which peptic ulcer disease could not be excluded. There were also scattered pulmonary nodules seen measuring up to 6 mm. Lastly there was a 1.2 cm hypoechoic lesion in the pancreatic tail noted. The patient was admitted to the hospital under the care of Dr. Steinberg. Consultations were placed to GI service and pulmonary. The patient was seen and examined at the bedside on rounds with Dr. Steinberg. The patient states he was feeling great this morning and had no complaints until he received his first albuterol breathing treatment. The patient states he cant catch his breath and is very anxious. The patient was requesting to be discharged home earlier today, because he cares for his elderly mother, however he has decided to stay in the hospital and receive the care he needs. He denies abdominal pain but he is holding his abdomen with both hands and is slightly hunched over in the chair. Denies chest pain or pressure. He states he is tolerating his diet well without any nausea or vomiting. He states his appetite is good. He does state he has recently lost approximately 10-15 pounds over the past 3 months, which he attributes to stress. Repeat lactic acid this morning was 1.1. White count is slightly increased to 17.9 from 14.6. Hemoglobin is 10.3. Amylase has decreased to 269 from 411. Lipase is decreased to 1455 from 3758. The patient was seen and evaluated by GI service this morning. Case was discussed with Zoe Baeza NP. The patient will need MRI of the pancreas outpatient. Patient will be scheduled for EGD tomorrow if he remains stable. CA 19-9 marker and CEA were ordered by GI and are currently pending. Review of Systems GENERAL: Patient denies fever. Denies chills. EYES: Denies blurred vision. Denies vision changes. Denies eye pain. EARS, NOSE, MOUTH, & THROAT: Denies headache. Denies sore throat. Denies ear pain. RESPIRATORY: Positive for nonproductive cough, which is improving per patient. Positive for shortness of breath. Denies sputum production. Denies hemoptysis. CARDIOVASCULAR: Denies chest pain or pressure. Denies palpitations. Denies arrhythmias. GASTROINTESTINAL: Denies abdominal pain. Denies diarrhea. Denies constipation. Denies nausea. Denies vomiting. Denies heartburn. Denies blood in the stool. GENITOURINARY: Denies urinary frequency. Denies burning. Denies dysuria. Denies cloudy urine. Denies blood in the urine. MUSCULOSKELETAL: Denies myalgias. Denies joint swelling. Denies decreased range of motion beyond patients baseline. INTEGUMENTARY: Denies pruitis. Denies rash. PSYCHIATRIC: Denies suicidal or homicial ideations. ENDOCRINE: Positive for 10-15 pound weight loss over the last 3 months which he attributes to stress. Denies polydipsia. Denies polyuria. HEMATOLOGIC: Denies bleeding disorders. Past Medical History Past Medical History: Blood Disorder, GERD/Reflux, Hypertension Additional Past Medical History / Comment(s): HX of Stomach ulcer., Anemia, Constipation.DIVERTICULOSIS(PER COLONOSCOPY) History of Any Multi-Drug Resistant Organisms: None Reported Past Surgical History: Back Surgery, Tonsillectomy Additional Past Surgical History / Comment(s): laminectomy, DENTAL IMPLANTS, COLONOSCOPY. Left middle finger surgery. Past Anesthesia/Blood Transfusion Reactions: No Reported Reaction Smoking Status: Current every day smoker - Past Family History Father Family Medical History: Cancer Additional Family Medical History / Comment(s): . Mother Family Medical History: GI Bleed Medications and Allergies Home Medications Medication Instructions Recorded Confirmed Type amLODIPine [Norvasc] 5 mg PO BID 08/05/15 02/08/17 History Moexipril HCl [Univasc] 15 mg PO BID 08/06/15 02/08/17 History Omeprazole 20 mg PO BID 08/06/15 02/08/17 History Bisacodyl [Dulcolax] 5 mg PO DAILY PRN 12/28/16 02/08/17 History Melatonin 10 mg PO HS 02/08/17 02/08/17 History Pantoprazole [Protonix] 40 mg PO DAILY #30 tablet. 02/09/17 Rx Allergies Allergy/AdvReac Type Severity Reaction Status Date / Time No Known Allergies Allergy Verified 02/08/17 11:43 Physical Exam Vitals: Vital Signs Temp Pulse Pulse Resp BP BP Pulse Ox 02/09/17 12:18 97.0 F L 20 147/90 96 02/09/17 11:15 86 02/09/17 11:06 86 02/09/17 08:08 83 02/09/17 08:00 83 20 02/09/17 07:59 83 02/09/17 07:00 97.6 F 83 16 148/76 95 02/08/17 21:35 97.7 F 100 16 131/92 98 02/08/17 21:12 74 02/08/17 20:58 78 02/08/17 17:57 96.7 F L 115 H 18 149/92 97 02/08/17 17:35 18 02/08/17 17:14 80 02/08/17 17:11 99 02/08/17 17:06 78 02/08/17 15:59 97.4 F L 105 H 18 169/86 100 02/08/17 15:16 94 L 02/08/17 14:41 107 H 18 171/98 100 02/08/17 14:27 101 H 18 182/102 100 02/08/17 13:14 100 22 191/102 99 Intake and Output 02/08/17 02/09/17 02/09/17 22:59 06:59 14:59 Intake Total 800 Balance 800 Intake: Intake, IV Titration 800 Amount Sodium Chloride 0.9% 1, 800 000 ml @ 100 mls/hr IV . Q10H [facility] Rx#:[id number] Other: Voiding Method Toilet # Voids 1 Weight 56.699 kg Patient Weight 02/10/17 06:59 Weight 56.699 kg GENERAL: This is a 71-year-old male in no apparent distress at the time of examination. Pleasant and cooperative. HEENT: Head is atraumatic, normocephalic. Pupils are equal, round, and reactive to light. Sclerae anicteric. Conjunctivae are clear. Mucus membranes of the mouth are moist. Neck is supple. RESPIRATORY: Lungs diminished and coarse. No use of accessory muscles. Patient maintaining oxygen saturation greater than 92%. No chest wall tenderness is noted on palpation or with deep breathing. CARDIOVASCULAR: Regular rate and rhythm. S1 and S2 noted. No JVD noted. No S3 or S4 noted. GASTROINTESTINAL: No distention noted. Abdomen soft and round. Normal active bowel sounds auscultated x 4 quadrants. No pain or tenderness noted upon palpation. INTEGUMENTARY: No cyanosis. No jaundice. No rashes noted. No cellulitis noted. EXTREMITIES: 2+ peripheral pulses. No evidence of peripheral edema. No calf tenderness noted. NEUROLOGIC: Cranial nerves II-XII intact. PSYCHIATRIC: Awake, alert, and oriented X 3. Appropriate affect. Intact judgement and insight. Results CBC & Chem 7: 02/09/17 08:12 02/09/17 08:15 Labs: Abnormal Lab Results - Last 24 Hours (Table) 02/08/17 02/08/17 02/08/17 Range/Units 11:30 11:30 12:20 WBC (3.8-10.6) k/uL RBC (4.30-5.90) m/uL Hgb (13.0-17.5) gm/dL Hct (39.0-53.0) % MCHC (31.0-37.0) g/dL RDW (11.5-15.5) % Plt Count (150-450) k/uL Neutrophils # (1.3-7.7) k/uL APTT 21.3 L (22.0-30.0) sec D-Dimer 7.72 H (<0.60) mg/L FEU Chloride (98-107) mmol/L Carbon Dioxide (22-30) mmol/L Glucose (74-99) mg/dL Plasma Lactic Acid Paras 2.9 H* (0.7-2.0) mmol/L AST (17-59) U/L Total Protein (6.3-8.2) g/dL Albumin (3.5-5.0) g/dL Amylase 411 H* (30-110) U/L Lipase 3758 H (23-300) U/L Ur Specific [place] (1.001-1.035) Urine Protein (Negative) Urine Glucose (UA) (Negative) Urine Ketones (Negative) Urine Mucus (None) /hpf 02/08/17 02/08/17 02/09/17 Range/Units 16:59 19:28 08:12 WBC 17.9 H (3.8-10.6) k/uL RBC 3.93 L (4.30-5.90) m/uL Hgb 10.3 L (13.0-17.5) gm/dL Hct 36.1 L (39.0-53.0) % MCHC 28.4 L (31.0-37.0) g/dL RDW 16.6 H (11.5-15.5) % Plt Count 468 H (150-450) k/uL Neutrophils # 15.7 H (1.3-7.7) k/uL APTT (22.0-30.0) sec D-Dimer (<0.60) mg/L FEU Chloride (98-107) mmol/L Carbon Dioxide (22-30) mmol/L Glucose (74-99) mg/dL Plasma Lactic Acid Paras 3.7 H* (0.7-2.0) mmol/L AST (17-59) U/L Total Protein (6.3-8.2) g/dL Albumin (3.5-5.0) g/dL Amylase (30-110) U/L Lipase (23-300) U/L Ur Specific [place] >1.050 H (1.001-1.035) Urine Protein 1+ H (Negative) Urine Glucose (UA) Trace H (Negative) Urine Ketones 2+ H (Negative) Urine Mucus Rare H (None) /hpf 02/09/17 Range/Units 08:15 WBC (3.8-10.6) k/uL RBC (4.30-5.90) m/uL Hgb (13.0-17.5) gm/dL Hct (39.0-53.0) % MCHC (31.0-37.0) g/dL RDW (11.5-15.5) % Plt Count (150-450) k/uL Neutrophils # (1.3-7.7) k/uL APTT (22.0-30.0) sec D-Dimer (<0.60) mg/L FEU Chloride 108 H (98-107) mmol/L Carbon Dioxide 19 L (22-30) mmol/L Glucose 112 H (74-99) mg/dL Plasma Lactic Acid Paras (0.7-2.0) mmol/L AST 16 L (17-59) U/L Total Protein 6.0 L (6.3-8.2) g/dL Albumin 2.9 L (3.5-5.0) g/dL Amylase 269 H (30-110) U/L Lipase 1455 H (23-300) U/L Ur Specific [place] (1.001-1.035) Urine Protein (Negative) Urine Glucose (UA) (Negative) Urine Ketones (Negative) Urine Mucus (None) /hpf Microbiology - Last 24 Hours (Table) 02/08/17 19:28 Urine Culture - Preliminary Urine,Clean Catch Thrombosis Risk Factor Assmnt - Choose All That Apply Any of the Below Risk Factors Present?: Yes Each Factor Represents 1 point: Serious lung disease incl. pneumonia (< 1month) Other Risk Factors: Yes Each Risk Factor Represents 2 Points: Age 61-74 years Thrombosis Risk Factor Assessment Total Risk Factor Score: 3 Thrombosis Risk Factor Assessment Level: Moderate Risk Assessment and Plan Plan: ASSESSMENT: Patchy infiltrates in bilateral lower lung lobes, suggestive of pneumonia, sputum culture ordered Pancreatitis, CT scan shows 1.2cm hypoechoic lesion in the pancreatic tail Elevated lactic acid and leukocytosis, suggestive of early sepsis Tachycardia and anxiety, secondary to albuterol nebulizer treatment Hypertensive urgency in ER, resolved Elevated D-Dimer, CT Chest negative for pulmonary embolus Pulmonary nodules measuring up to 6mm, as revealed by CT chest Moderate wall thickening of the distal esophagus and possible moderately sized hiatal hernia, as revealed by CT, r/o peptic ulcer disease and/or neoplasm Gastroesophageal reflux disease Essential hypertension Chronic alcohol use, patient drinks minimum of 3 beers daily Nicotine dependence, patient is a former cigarette smoker and current tobacco pipe smoker PLAN: -GI on consult. Appreciate recommendations and input -Patient scheduled for EGD tomorrow -NPO after midnight -Pulmonary on consult. Appreciate recommendations and input. -Discontinue albuterol breathing treatments -Per pharmacy, Xopenex is no longer on formulary -Begin solu-medral 40mg IV Q8 hours -Continue antibiotics: Zithromax and Rocephin -Continue IVF fluids -Await blood culture results -Await urine culture results -Collect sputum culture if possible -Morphine ordered for pain -Xanax PRN for anxiety -Home meds as appropriate -Monitor labs -GI prophylaxis: Protonix 40 mg IV daily -DVT prophylaxis: On hold due to EGD tomorrow. Initiate heparin after procedure -Monitor vital signs and address as appropriate -Discharge planning: Patient to return home -Further recommendations pending patient's course Nurse practitioner note has been reviewed by physician. Signing provider agrees with the documented findings, assessment, and plan of care.
--- NOTE | 2017-02-09 15:03 | P.CNPUL ---
History of Present Illness Consult date: 02/09/17 Requesting physician: Tc Steinberg Jr Reason for consult: dyspnea, chest pain, COPD Chief complaint: Chest pain, with associated dyspnea. History of present illness: Tom is a 71-year-old white male patient who presented to the emergency department on 02/08/2017 at approximately 11:30 in the morning with complaints of anterior chest wall pain that was worse with inspiration, and associated shortness of breath of a couple of days' duration. Denied any fever, or chills , denied any hemoptysis, or significant chest congestion. Did have a cough which was mostly nonproductive. He was diagnosed with COPD. He is a tobacco pipe smoker since 2009. Patient initially thought he had pleurisy and had presented to the urgent care where he was given nebulized treatments without much improvement and subsequently directed to the [facility] ED. On presentation, there is evidence of leukocytosis, lactic acidosis, and elevated amylase and lipase. Chest x-ray on 02/08/2017 showed patchy infiltrates in the bilateral lower lobes and trace effusions. CT chest from 02/08/2017 showed no evidence of pulmonary embolus, and was positive for patchy left greater than the right bibasilar airspace disease consistent with pneumonia or parapneumonic process and the presence of scattered pulmonary nodules. Blood cultures showed no growth after 24 hours. Urine culture in progress. Patient has been covered empirically with IV Zithromax and Rocephin, started on DuoNeb nebulized treatments. We were consulted in regards to the pulmonary nodules seen on the CTA from 02/08/2017. On evaluation patient sitting up in bed, awake alert, is complaining of some posterior chest pain bilaterally, which is worse after DuoNeb every belies treatments, patient is slightly tachycardic and anxious. He is on room air with O2 sat at 99%. He is afebrile, he denies any significant dyspnea at this time, his biggest complaint is a posterior chest pain exacerbated by breathing treatments. Review of Systems All systems: negative Constitutional: Denies chills, Denies fever Eyes: denies blurred vision, denies pain Ears, nose, mouth and throat: Denies headache, Denies sore throat Cardiovascular: Denies chest pain, Denies shortness of breath Respiratory: Denies cough Gastrointestinal: Denies abdominal pain, Denies diarrhea, Denies nausea, Denies vomiting Musculoskeletal: Denies myalgias Integumentary: Denies pruritus, Denies rash Neurological: Denies numbness, Denies weakness Psychiatric: Denies anxiety, Denies depression Endocrine: Denies fatigue, Denies weight change Past Medical History Past Medical History: Blood Disorder, GERD/Reflux, Hypertension Additional Past Medical History / Comment(s): HX of Stomach ulcer., Anemia, Constipation.DIVERTICULOSIS(PER COLONOSCOPY) History of Any Multi-Drug Resistant Organisms: None Reported Past Surgical History: Back Surgery, Tonsillectomy Additional Past Surgical History / Comment(s): laminectomy, DENT[employer]PLANTS, COLONOSCOPY. Left middle finger surgery. Past Anesthesia/Blood Transfusion Reactions: No Reported Reaction Smoking Status: Current every day smoker - Past Family History Father Family Medical History: Cancer Additional Family Medical History / Comment(s): . Mother Family Medical History: GI Bleed Medications and Allergies Home Medications Medication Instructions Recorded Confirmed Type amLODIPine [Norvasc] 5 mg PO BID 08/05/15 02/08/17 History Moexipril HCl [Univasc] 15 mg PO BID 08/06/15 02/08/17 History Omeprazole 20 mg PO BID 08/06/15 02/08/17 History Bisacodyl [Dulcolax] 5 mg PO DAILY PRN 12/28/16 02/08/17 History Melatonin 10 mg PO HS 02/08/17 02/08/17 History Pantoprazole [Protonix] 40 mg PO DAILY #30 tablet. 02/09/17 Rx Allergies Allergy/AdvReac Type Severity Reaction Status Date / Time No Known Allergies Allergy Verified 02/08/17 11:43 Physical Exam Vitals: Vital Signs Temp Pulse Pulse Resp BP BP Pulse Ox 02/09/17 12:18 97.0 F L 20 147/90 96 02/09/17 11:15 86 02/09/17 11:06 86 02/09/17 08:08 83 02/09/17 08:00 83 20 02/09/17 07:59 83 02/09/17 07:00 97.6 F 83 16 148/76 95 02/08/17 21:35 97.7 F 100 16 131/92 98 02/08/17 21:12 74 02/08/17 20:58 78 02/08/17 17:57 96.7 F L 115 H 18 149/92 97 02/08/17 17:35 18 02/08/17 17:14 80 02/08/17 17:11 99 02/08/17 17:06 78 02/08/17 15:59 97.4 F L 105 H 18 169/86 100 02/08/17 15:16 94 L 02/08/17 14:41 107 H 18 171/98 100 Intake and Output 02/08/17 02/09/17 02/09/17 22:59 06:59 14:59 Intake Total 800 Balance 800 Intake: Intake, IV Titration 800 Amount Sodium Chloride 0.9% 1, 800 000 ml @ 100 mls/hr IV . Q10H [facility] Rx#:[id number] Other: Voiding Method Toilet # Voids 1 Weight 56.699 kg Patient Weight 02/10/17 06:59 Weight 56.699 kg GENERAL EXAM: Thin white elderly male, slightly flushed, but in no acute distress. Alert, active, comfortable in no apparent distress. HEAD: Normocephalic/atraumatic. EYES: Normal reaction of pupils, equal size. Conjunctiva pink, sclera white. NOSE: Clear with pink turbinates. THROAT: No erythema or exudates. NECK: No masses, no JVD, no thyroid enlargement, no adenopathy. CHEST: No chest wall deformity. Symmetrical expansion. LUNGS: Equal air entry with scattered coarse respiratory crackles over bilateral lower lobes CVS: Regular rate and rhythm, normal S1 and S2, no gallops, no murmurs, no rubs ABDOMEN: Soft, nontender. No hepatosplenomegaly, normal bowel sounds, no guarding or rigidity. EXTREMITIES: No clubbing, no edema, no cyanosis, 2+ pulses and upper and lower extremities. MUSCULOSKELETAL: Muscle strength and tone normal. SPINE: No scoliosis or deformity SKIN: No rashes CENTRAL NERVOUS SYSTEM: Alert and oriented 3. No focal deficits, tone is normal in all 4 extremities. PSYCHIATRIC: Alert and oriented 3. Appropriate affect. Intact judgment and insight. Results - Laboratory Findings CBC and BMP: 02/09/17 08:12 02/09/17 08:15 PT/INR, D-dimer PT 9.8 sec (9.0-12.0) 02/08/17 11:30 INR 1.0 (<1.2) 02/08/17 11:30 D-Dimer 7.72 mg/L FEU (<0.60) H 02/08/17 11:30 Abnormal lab findings: Abnormal Labs 02/08/17 02/08/17 02/08/17 11:30 11:30 11:30 WBC 14.6 H RBC Hgb 12.4 L Hct MCHC 30.8 L RDW 17.8 H Plt Count 528 H Neutrophils # 13.6 H Lymphocytes # 0.5 L APTT D-Dimer Chloride Carbon Dioxide BUN 7 L Glucose 107 H Plasma Lactic Acid Paras AST Total Creatine Kinase 39 L Total Protein Albumin 3.4 L Amylase Lipase Ur Specific [place] Urine Protein Urine Glucose (UA) Urine Ketones Urine Mucus 02/08/17 02/08/17 02/08/17 11:30 11:30 12:20 WBC RBC Hgb Hct MCHC RDW Plt Count Neutrophils # Lymphocytes # APTT 21.3 L D-Dimer 7.72 H Chloride Carbon Dioxide BUN Glucose Plasma Lactic Acid [place] 2.9 H* AST Total Creatine Kinase Total Protein Albumin Amylase 411 H* Lipase 3758 H Ur Specific [place] Urine Protein Urine Glucose (UA) Urine Ketones Urine Mucus 02/08/17 02/08/17 02/09/17 16:59 19:28 08:12 WBC 17.9 H RBC 3.93 L Hgb 10.3 L Hct 36.1 L MCHC 28.4 L RDW 16.6 H Plt Count 468 H Neutrophils # 15.7 H Lymphocytes # APTT D-Dimer Chloride Carbon Dioxide BUN Glucose Plasma Lactic Acid Paras 3.7 H* AST Total Creatine Kinase Total Protein Albumin Amylase Lipase Ur Specific [place] >1.050 H Urine Protein 1+ H Urine Glucose (UA) Trace H Urine Ketones 2+ H Urine Mucus Rare H 02/09/17 08:15 WBC RBC Hgb Hct MCHC RDW Plt Count Neutrophils # Lymphocytes # APTT D-Dimer Chloride 108 H Carbon Dioxide 19 L BUN Glucose 112 H Plasma Lactic Acid Paras AST 16 L Total Creatine Kinase Total Protein 6.0 L Albumin 2.9 L Amylase 269 H Lipase 1455 H Ur Specific [place] Urine Protein Urine Glucose (UA) Urine Ketones Urine Mucus - Diagnostic Findings Chest x-ray: report reviewed Assessment and Plan Plan: Assessment: #1. Acute respiratory failure, unspecified, due to bilateral lower lobe pneumonia and COPD exacerbation #2. Current every day smoker #3. Lactic acidosis, present on admission, likely related to sepsis the source possibly from bilateral lower lobe pneumonia or possibly related to obstructive pancreatitis, blood culture shows no growth, urine culture pending. No sputum culture has been collected. #4. Multiple pulmonary nodules, nonspecific, likely related to pneumonia. Will follow-up in 3-[address] chest #5. Elevated d-dimer, CTA chest from 02/08/2017 is negative for PE #6. Distal thoracic esophageal hernia, GI service following #7. Elevated lipase and amylase, CT chest showed hyperechoic lesion in the tail of the pancreas 1.2 cm with surrounding edema suggestive of acute pancreatitis, possible malignancy cannot be entirely excluded. GI service following #8. History of gastric ulcer #9. History of anemia #10. History of diverticulosis #11. History of laminectomy Plan: Patient is experiencing tachycardia, palpitations, increased posterior chest pain, and anxiety after his breathing treatments of DuoNeb. We had requested Xopenex, however it is no longer on the formulary and is not available. We will discontinue the DuoNeb nebulized treatments. Start Solu-Medrol 40 mg every 8 hours. Continue empiric antibiotic coverage in the form of Rocephin and Zithromax. Regards to the nonspecific pulmonary nodules present on the CT chest from 02/08/2017 , are likely related to the bilateral lower lobe pneumonia. We will do a follow-up CT chest in 3-6 months as an outpatient. We' ll continue to closely follow, further recommendations are to follow. I performed a history & physical examination of the patient and discussed their management with my nurse practitioner, Deysi Lozano. I reviewed the nurse practitioner's note and agree with the documented findings and plan of care. Lung sounds are positive for coarse respiratory crackles. His continue to DuoNeb, initiate Solu-Medrol 40 every 8 hours. The findings and the impression was discussed with the patient. I attest to the documentation by the nurse practitioner. Time with Patient: Greater than 30
[2017-02-09] MEDS: methylPREDNISolone SOD SUCCI 125 MG/2 ML VIAL IV SCH ×2 (16:44→19:23)
[2017-02-09] MEDS: methylPREDNISolone SOD SUCCI 40 MG/ML 1 ML VIAL IV SCH ×2 (17:01→23:32)
[2017-02-09] MEDS: AZITHROMYCIN 500 MG TAB PO SCH (17:02)
[2017-02-09] MEDS: cefTRIAXone IN SWFI 1,000 MG/10 ML SYRINGE IVP SCH (17:06)
[2017-02-09] MEDS: ALPRAZolam 0.25 MG TAB PO PRN (17:24)
[2017-02-09] MEDS: MELATONIN 5 MG TABLET PO PRN (23:32)
[2017-02-09] MEDS: diphenhydrAMINE 50 MG CAP PO PRN (23:32)
[2017-02-09] MEDS: IBUPROFEN 400 MG TAB PO PRN (23:32)
[2017-02-10] MEDS: SODIUM CHLORIDE 0.9% 1,000 ML IV SCH ×4 (05:13→20:31)
[2017-02-10 07:08] LABS: Anisocytosis Slight; Basophils % (A) 0 %; CH 26.7; CHCM 29.9; Eosinophils # (A) 0.2 k/uL (0-0.7); Eosinophils % (A) 1 %; HCT 32.8 % (39.0-53.0); HDW 3.24; HGB 9.6 gm/dL (13.0-17.5); Hypochromasia Marked; Luc # (Auto) 0.06; Luc % (Auto) 0; Lymphocytes # (A) 0.5 k/uL (1.0-4.8); Lymphocytes % (A) 3 %; MCH 26.3 pg (25.0-35.0); MCHC 29.3 g/dL (31.0-37.0); Mean Platelet Volume 6.6; Monocytes # (A) 0.6 k/uL (0-1.0); Monocytes % (A) 3 %; Neutrophils # (A) 16.6 k/uL (1.3-7.7); Neutrophils % (A) 93 %; RBC 3.64 m/uL (4.30-5.90); RDW 16.5 % (11.5-15.5); WBC 17.9 k/uL (3.8-10.6); WBC (Perox) 19.14
[2017-02-10 07:28] LABS: ALT 19 U/L (21-72); AST 13 U/L (17-59); Alkaline Phosphatase 57 U/L (38-126); Anion Gap 7 mmol/L; Blood Urea Nitrogen 9 mg/dL (9-20); Calcium 7.9 mg/dL (8.4-10.2); Carbon Dioxide 20 mmol/L (22-30); Chloride 109 mmol/L (98-107); Glucose 118 mg/dL (74-99); Non-African American GFR(MDRD) >60 (>60 ml/min/1.73 sqM); Potassium 4.5 mmol/L (3.5-5.1); Sodium 136 mmol/L (137-145); Total Bilirubin 0.2 mg/dL (0.2-1.3); Total Protein 5.5 g/dL (6.3-8.2)
[2017-02-10 08:10] VITALS: RESP 16
[2017-02-10] MEDS: methylPREDNISolone SOD SUCCI 40 MG/ML 1 ML VIAL IV SCH ×4 (08:56→23:32)
[2017-02-10] MEDS: PANTOPRAZOLE 40 MG/10 ML VIAL IVP SCH (08:56)
[2017-02-10] MEDS: MORPHINE SULFATE 10 MG/ML SYRINGE IVP PRN ×3 (09:03→21:36)
--- NOTE | 2017-02-10 09:58 | P.PN ---
Subjective Progress Note Date: 02/10/17 71-year-old male who presented to the emergency room on 02/08/2017 with a chief complaint of shortness of breath and coughing for the past 2-3 days. The patient presented to urgent care earlier in the day and a chest x-ray was completed which was suggestive of pneumonia and the patient was advised to come to the emergency room for further evaluation. The patient has a history of hypertension, GERD, diverticulosis, and anemia. The patient is a former cigarette smoker. He states he now smokes tobacco appetite. The patient stated it is the equivalent to 2-3 packs of cigarettes a day. The patient also states he has a daily alcohol drinker and states he drinks at least 3 beers daily. In the emergency room a chest x-ray was completed which showed bilateral lower lobe patchy infiltrates and possible trace pleural effusions. The patient's white count was elevated at 14.6. His hemoglobin was 12.4. His lactic acid was 2.9. Repeat lactic acid was 3.7. Troponin was negative 1. Amylase was elevated at 411 and lipase was elevated at 3758. LFTs were within normal range. D-dimer was elevated at 7.72. Patient underwent CT of the chest which was negative for a pulmonary embolus. However it did show small effusions with patchy left greater than right bibasilar opacities. Moderate wall thickening of the distal esophagus was seen with a possible moderately sized hiatal hernia. Edema and fluid tracking along the upper abdominal retroperitoneum, anterior margin of the pancreas, and in the gastrohepatic ligament region in which pancreatitis could not be excluded. Additionally there was poor delineation between the fluid in the posterior gastric fundus and which peptic ulcer disease could not be excluded. There were also scattered pulmonary nodules seen measuring up to 6 mm. Lastly there was a 1.2 cm hypoechoic lesion in the pancreatic tail noted. The patient was admitted to the hospital under the care of Dr. Steinberg. Consultations were placed to GI service and pulmonary. 02/08/2017 The patient was seen and examined at the bedside on rounds with Dr. Steinberg. The patient states he was feeling great this morning and had no complaints until he received his first albuterol breathing treatment. The patient states he cant catch his breath and is very anxious. The patient was requesting to be discharged home earlier today, because he cares for his elderly mother, however he has decided to stay in the hospital and receive the care he needs. He denies abdominal pain but he is holding his abdomen with both hands and is slightly hunched over in the chair. Denies chest pain or pressure. He states he is tolerating his diet well without any nausea or vomiting. He states his appetite is good. He does state he has recently lost approximately 10-15 pounds over the past 3 months, which he attributes to stress. Repeat lactic acid this morning was 1.1. White count is slightly increased to 17.9 from 14.6. Hemoglobin is 10.3. Amylase has decreased to 269 from 411. Lipase is decreased to 1455 from 3758. The patient was seen and evaluated by GI service this morning. Case was discussed with Zoe Baeza NP. The patient will need MRI of the pancreas outpatient. Patient will be scheduled for EGD tomorrow if he remains stable. CA 19-9 marker and CEA were ordered by GI and are currently pending. 02/09/2017 Patient seen and examined this morning at the bedside. Patient is sitting up in bed, paying bills on his laptop. Patient states he is feeling much better than yesterday. His albuterol breathing treatments have been discontinued secondary to adverse reactions and he was started on IV steroids every 8 hours. He was started on xanax PRN for anxiety. He denies shortness of breath or chest pain. White count remains elevated at 17.9. Lipase has improved from 1455 to 579. CA 19-9 was 11.8 and CEA was 1.5. Urine culture is negative. Blood cultures are negative at the 24 hour murphy. Sputum culture was ordered and is pending collection. Pulmonary evaluated patient regading pulmonary nodules and found to be likely nonspecific in the setting of pneumonia. Recommend patient having follow-up CT in 3-6 months as outpatient. Patient remains NPO for EGD today. Objective - Vital Signs Vital signs: Vital Signs Temp 97.6 F 02/10/17 07:00 Pulse 70 02/10/17 07:00 Resp 16 02/10/17 07:00 BP 135/72 02/10/17 07:00 Pulse Ox 93 L 02/10/17 07:00 Intake & Output 02/09/17 02/10/17 02/10/17 18:59 06:59 18:59 Intake Total 1130 1660 Balance 1130 1660 Weight 56.699 kg Intake: Intake, IV Titration 650 1070 Amount Sodium Chloride 0.9% 1, 650 1070 000 ml @ 125 mls/hr IV . Q8H [facility] Rx#:[id number] Oral 480 590 Other: Voiding Method Toilet Toilet # Voids 3 2 # Bowel Movements 1 - Exam GENERAL: This is a 71-year-old male in no apparent distress at the time of examination. Pleasant and cooperative. HEENT: Head is atraumatic, normocephalic. Pupils are equal, round, and reactive to light. Sclerae anicteric. Conjunctivae are clear. Mucus membranes of the mouth are moist. Neck is supple. RESPIRATORY: Lungs diminished and coarse. No use of accessory muscles. Patient maintaining oxygen saturation greater than 92%. No chest wall tenderness is noted on palpation or with deep breathing. CARDIOVASCULAR: Regular rate and rhythm. S1 and S2 noted. No JVD noted. No S3 or S4 noted. GASTROINTESTINAL: No distention noted. Abdomen soft and round. Normal active bowel sounds auscultated x 4 quadrants. No pain or tenderness noted upon palpation. INTEGUMENTARY: No cyanosis. No jaundice. No rashes noted. No cellulitis noted. EXTREMITIES: 2+ peripheral pulses. No evidence of peripheral edema. No calf tenderness noted. NEUROLOGIC: Cranial nerves II-XII intact. PSYCHIATRIC: Awake, alert, and oriented X 3. Appropriate affect. Intact judgement and insight. - Labs CBC & Chem 7: 02/10/17 06:53 02/10/17 06:53 Labs: Abnormal Lab Results - Last 24 Hours (Table) 02/10/17 02/10/17 Range/Units 06:53 06:53 WBC 17.9 H (3.8-10.6) k/uL RBC 3.64 L (4.30-5.90) m/uL Hgb 9.6 L (13.0-17.5) gm/dL Hct 32.8 L (39.0-53.0) % MCHC 29.3 L (31.0-37.0) g/dL RDW 16.5 H (11.5-15.5) % Neutrophils # 16.6 H (1.3-7.7) k/uL Lymphocytes # 0.5 L (1.0-4.8) k/uL Sodium 136 L (137-145) mmol/L Chloride 109 H (98-107) mmol/L Carbon Dioxide 20 L (22-30) mmol/L Glucose 118 H (74-99) mg/dL Calcium 7.9 L (8.4-10.2) mg/dL AST 13 L (17-59) U/L ALT 19 L (21-72) U/L Total Protein 5.5 L (6.3-8.2) g/dL Albumin 2.6 L (3.5-5.0) g/dL Lipase 579 H (23-300) U/L Microbiology - Last 24 Hours (Table) 02/08/17 19:28 Urine Culture - Final Urine,Clean Catch 02/08/17 16:59 Blood Culture - Preliminary Blood No Growth after 24 hours 02/08/17 11:30 Blood Culture - Preliminary Blood No Growth after 24 hours Assessment and Plan Plan: ASSESSMENT: Patchy infiltrates in bilateral lower lung lobes, suggestive of pneumonia, sputum culture ordered Pancreatitis, CT scan shows 1.2cm hypoechoic lesion in the pancreatic tail Elevated lactic acid and leukocytosis, suggestive of early sepsis Tachycardia and anxiety, secondary to albuterol nebulizer treatment Hypertensive urgency in ER, resolved Elevated D-Dimer, CT Chest negative for pulmonary embolus Pulmonary nodules measuring up to 6mm, as revealed by CT chest Moderate wall thickening of the distal esophagus and possible moderately sized hiatal hernia, as revealed by CT, r/o peptic ulcer disease and/or neoplasm Gastroesophageal reflux disease Essential hypertension Chronic alcohol use, patient drinks minimum of 3 beers daily Nicotine dependence, patient is a former cigarette smoker and current tobacco pipe smoker PLAN: -GI on consult. Appreciate recommendations and input -Patient scheduled for EGD today -NPO until after EGD -Pulmonary on consult. Appreciate recommendations and input. -Continue IV steroids -Patients glucose this morning was 118. If BS becomes uncontrolled, will start sliding scale coverage -Continue antibiotics: Zithromax and Rocephin -Continue IVF fluids while NPO -Collect sputum culture if possible -Home meds as appropriate -Monitor labs -GI prophylaxis: Protonix 40 mg IV daily -DVT prophylaxis: On hold due to EGD. Initiate heparin after procedure -Monitor vital signs and address as appropriate -Discharge planning: Patient to return home -Further recommendations pending patient's course Nurse practitioner note has been reviewed by physician. Signing provider agrees with the documented findings, assessment, and plan of care.
--- NOTE | 2017-02-10 14:03 | P.PN ---
Subjective Progress Note Date: 02/10/17 Principal diagnosis: acute respiratory failure, unspecified, due to bilateral lower lobe pneumonia and COPD exacerbation Tom is a 71-year-old white male patient who presented to the emergency department on 02/08/2017 at approximately 11:30 in the morning with complaints of anterior chest wall pain that was worse with inspiration, and associated shortness of breath of a couple of days' duration. Denied any fever, or chills , denied any hemoptysis, or significant chest congestion. Did have a cough which was mostly nonproductive. He was diagnosed with COPD. He is a tobacco pipe smoker since 2009. Patient initially thought he had pleurisy and had presented to the urgent care where he was given nebulized treatments without much improvement and subsequently [facility]. On presentation, there is evidence of leukocytosis, lactic acidosis, and elevated amylase and lipase. Chest x-ray on 02/08/2017 showed patchy infiltrates in the bilateral lower lobes and trace effusions. CT chest from 02/08/2017 showed no evidence of pulmonary embolus, and was positive for patchy left greater than the right bibasilar airspace disease consistent with pneumonia or parapneumonic process and the presence of scattered pulmonary nodules. Blood cultures showed no growth after 24 hours. Urine culture in progress. Patient has been covered empirically with IV Zithromax and Rocephin, started on DuoNeb nebulized treatments. We were consulted in regards to the pulmonary nodules seen on the CTA from 02/08/2017. On evaluation patient sitting up in bed, awake alert, is complaining of some posterior chest pain bilaterally, which is worse after DuoNeb every belies treatments, patient is slightly tachycardic and anxious. He is on room air with O2 sat at 99%. He is afebrile, he denies any significant dyspnea at this time, his biggest complaint is a posterior chest pain exacerbated by breathing treatments. On 02/10/2017 patient seen in follow-up. He reports significant improvement in his chest pain, and dyspnea. lung sounds are positive for findings respiratory crackles over bilateral bases, worse on the left. Good air entry bilaterally, no wheezes noted. No significant sputum production. aspirations are even and nonlabored, she is on room air with O2 sat at 93%. He is afebrile. his microbiology results have been reviewed and show no positive urine or blood cultures. continues on empiric abiotic coverage in the form of Zithromax and Rocephin. GI service has requested pulmonary clearance to proceed with esophagogastroduodenoscopy today. Patient is able to proceed with EGD from pulmonary standpoint. Objective - Vital Signs Vital signs: Vital Signs Temp 97.6 F 02/10/17 07:00 Pulse 70 02/10/17 07:00 Resp 16 02/10/17 07:00 BP 135/72 02/10/17 07:00 Pulse Ox 93 L 02/10/17 07:00 Intake & Output 02/09/17 02/10/17 02/10/17 18:59 06:59 18:59 Intake Total 1130 1660 Balance 1130 1660 Weight 56.699 kg Intake: Intake, IV Titration 650 1070 Amount Sodium Chloride 0.9% 1, 650 1070 000 ml @ 125 mls/hr IV . Q8H BENJAMÍN Rx#:[id number] Oral 480 590 Other: Voiding Method Toilet Toilet # Voids 3 2 # Bowel Movements 1 - Exam GENERAL EXAM: Thin white elderly male, slightly flushed, but in no acute distress. Alert, active, comfortable in no apparent distress. HEAD: Normocephalic/atraumatic. EYES: Normal reaction of pupils, equal size. Conjunctiva pink, sclera white. NOSE: Clear with pink turbinates. THROAT: No erythema or exudates. NECK: No masses, no JVD, no thyroid enlargement, no adenopathy. CHEST: No chest wall deformity. Symmetrical expansion. LUNGS: Equal air entry with scattered coarse respiratory crackles over bilateral lower lobes CVS: Regular rate and rhythm, normal S1 and S2, no gallops, no murmurs, no rubs ABDOMEN: Soft, nontender. No hepatosplenomegaly, normal bowel sounds, no guarding or rigidity. EXTREMITIES: No clubbing, no edema, no cyanosis, 2+ pulses and upper and lower extremities. MUSCULOSKELETAL: Muscle strength and tone normal. SPINE: No scoliosis or deformity SKIN: No rashes CENTRAL NERVOUS SYSTEM: Alert and oriented 3. No focal deficits, tone is normal in all 4 extremities. PSYCHIATRIC: Alert and oriented 3. Appropriate affect. Intact judgment and insight. - Labs CBC & Chem 7: 02/10/17 06:53 02/10/17 06:53 Labs: Abnormal Lab Results - Last 24 Hours (Table) 02/10/17 02/10/17 Range/Units 06:53 06:53 WBC 17.9 H (3.8-10.6) k/uL RBC 3.64 L (4.30-5.90) m/uL Hgb 9.6 L (13.0-17.5) gm/dL Hct 32.8 L (39.0-53.0) % MCHC 29.3 L (31.0-37.0) g/dL RDW 16.5 H (11.5-15.5) % Neutrophils # 16.6 H (1.3-7.7) k/uL Lymphocytes # 0.5 L (1.0-4.8) k/uL Sodium 136 L (137-145) mmol/L Chloride 109 H (98-107) mmol/L Carbon Dioxide 20 L (22-30) mmol/L Glucose 118 H (74-99) mg/dL Calcium 7.9 L (8.4-10.2) mg/dL AST 13 L (17-59) U/L ALT 19 L (21-72) U/L Total Protein 5.5 L (6.3-8.2) g/dL Albumin 2.6 L (3.5-5.0) g/dL Lipase 579 H (23-300) U/L Microbiology - Last 24 Hours (Table) 02/08/17 11:30 Blood Culture - Preliminary Blood No Growth after 48 hours 02/08/17 19:28 Urine Culture - Final Urine,Clean Catch 02/08/17 16:59 Blood Culture - Preliminary Blood No Growth after 24 hours Assessment and Plan Plan: Assessment: #1. Acute respiratory failure, unspecified, due to bilateral lower lobe pneumonia and COPD exacerbation #2. Current every day smoker #3. Lactic acidosis, present on admission, likely related to sepsis the source possibly from bilateral lower lobe pneumonia or possibly related to pancreatitis , blood culture shows no growth, urine culture pending. No sputum culture has been collected. #4. Multiple pulmonary nodules, nonspecific, likely related to pneumonia. Will follow-up in 3-[address] chest #5. Elevated d-dimer, CTA chest from 02/08/2017 is negative for PE #6. Distal thoracic esophageal hernia, GI service following. We cleared the patient for EGD today from pulmonary standpoint #7. Elevated lipase and amylase, CT chest showed hyperechoic lesion in the tail of the pancreas 1.2 cm with surrounding edema suggestive of acute pancreatitis, possible malignancy cannot be entirely excluded. GI service following. #8. History of gastric ulcer #9. History of anemia #10. History of diverticulosis #11. History of laminectomy Plan: Patient responded well to Solu-Medrol, his best dyspnea and posterior chest pain have significantly improved in the last 24 hours. Continue Solu-Medrol 40 mg every 8 hours. Continue empiric antibiotic coverage in the form of Rocephin and Zithromax. Unable to collect a sputum culture, as patient is not bringing up any sputum. Stable to proceed with EGD today from pulmonary standpoint. We will do a follow-up CT chest in 3-6 months as an outpatient in regards to the nonspecific pulmonary nodules noted on the CT of the chest. We'll continue to closely follow, further recommendations are to follow. I performed a history & physical examination of the patient and discussed their management with my nurse practitioner, Deysi Lozano. I reviewed the nurse practitioner's note and agree with the documented findings and plan of care. Lung sounds are positive for coarse respiratory crackles. Continue present medical treatment, stable to proceed with EGD today. The findings and the impression was discussed with the patient. I attest to the documentation by the nurse practitioner. Time with Patient: Less than 30
[2017-02-10] MEDS ORDERED: PROPOFOL 10 MG/ML 20 ML VIAL IV ONE (16:50)
[2017-02-10] MEDS ORDERED: LIDOCAINE 1% INJ 10MG/ML (20 ML MDV) ONE (16:50)
[2017-02-10] MEDS ORDERED: IV FLUID CONTINUATION 1,000 ML IV ONE (17:13)
--- NOTE | 2017-02-10 17:14 | P.PCN ---
Date of Procedure: 02/10/17 Procedure(s) Performed: Procedure: Esophagogastroduodenoscopy and biopsy. Preoperative diagnosis: Abdominal pain and abnormal CT of the chest. Postoperative diagnosis: 1. Very small sliding hiatal hernia with no obvious esophagitis or complicated reflux disease. 2. Mild antral gastritis. 3. No ulcers or gastric outlet obstruction. 4. Abnormalities on CT were not substantiated on this exam. 5. Biopsies obtained from the antrum and esophagus. Preparation sedation: Was provided by anesthesia. Brief clinical history: The patient is a 71 year old male admitted with shortness of breath and elevated pancreatic enzymes. CT of the chest reported no PE, there was moderate circumferential wall thickening distal 1/3 thoracic esophagus possible paraesophageal hernia. PUD and neoplasm could not be excluded. Poor delineation between the fluid in the posterior gastric fundus peptic ulcer disease within the differential. Edema and fluid tracking along the upper abdomen and retroperitoneum anterior margin of the pancreas, pancreatitis cannot be excluded. Additional 1.2 cm hypoechoic lesion in tail of pancrease was identified. Lipase was 3758. Amylase 411. LFTs normal. Lactic acid elevated 3.7. D-Dimer 7.72. repeat lactic acid 1.1. patient denies abdominal pain nausea vomiting. 10 pound weight loss over the last few months which he thinks is from stress and caring for his elderly mother. His less than a year ago. No current alcohol consumption. When he was younger he drank more heavily. Denies fever or chills, hematemesis, hematochezia or melena. No history of pancreatitis. No current EtOH. EGD more than 5 years ago with findings of a small ulcer. X-ray persistent trace pleural effusions and by basilar atelectasis. No new focal consolidation. I will details are summarized in the history and physical and dictated consultations and progress notes. This evaluation is to assess for peptic ulcer disease and complicated reflux disease or other pathology. Procedure: With the patient on his left lateral decubitus position and after informed consent and adequate sedation, I passed a Olympus-GIF 160 video upper endoscope through the cricopharyngeus down the esophagus. GE junction was around 40 cm from the incisors and there was a very small sliding hiatal hernia with no obvious esophagitis or complicated reflux disease. The endoscope was then passed into the stomach which was insufflated with air and inspected in detail including the retroflex view in the cardia. There was some mottling and erythema in the antrum consistent with mild antral gastritis but no ulcers or bleeding. There was no obstruction to the gastric outlet pyloric channel, duodenal bulb, post bulbar area and descending duodenum appeared within normal limits. I obtained biopsies from the antrum and esophagus before the endoscope was withdrawn. The patient tolerated the procedure well. Plan: The patient was reassured. Will await biopsy results. Further plans will be made based on his course.
[2017-02-10] MEDS: AZITHROMYCIN 500 MG TAB PO SCH (18:05)
[2017-02-10] MEDS: cefTRIAXone IN SWFI 1,000 MG/10 ML SYRINGE IVP SCH (18:06)
[2017-02-10] MEDS: ALPRAZolam 0.25 MG TAB PO PRN (22:15)
[2017-02-11] MEDS: MORPHINE SULFATE 10 MG/ML SYRINGE IVP PRN ×2 (03:24→11:26)
[2017-02-11 07:51] LABS: Anisocytosis Slight; Basophils % (A) 0 %; CH 25.8; CHCM 29.1; Eosinophils % (A) 0 %; HCT 35.1 % (39.0-53.0); HDW 3.13; HGB 10.5 gm/dL (13.0-17.5); Hypochromasia Marked; Luc # (Auto) 0.08; Luc % (Auto) 0; Lymphocytes # (A) 0.5 k/uL (1.0-4.8); Lymphocytes % (A) 3 %; MCH 26.7 pg (25.0-35.0); MCV 89.1 fL (80.0-100.0); Mean Platelet Volume 7.6; Monocytes # (A) 0.4 k/uL (0-1.0); Monocytes % (A) 2 %; Neutrophils # (A) 17.6 k/uL (1.3-7.7); Neutrophils % (A) 95 %; RBC 3.94 m/uL (4.30-5.90); RDW 17.6 % (11.5-15.5); WBC 18.6 k/uL (3.8-10.6); WBC (Perox) 19.75
[2017-02-11 08:00] LABS: ALT 24 U/L (21-72); AST 14 U/L (17-59); Alkaline Phosphatase 55 U/L (38-126); Anion Gap 7 mmol/L; Blood Urea Nitrogen 13 mg/dL (9-20); Calcium 8.1 mg/dL (8.4-10.2); Carbon Dioxide 19 mmol/L (22-30); Chloride 111 mmol/L (98-107); Glucose 104 mg/dL (74-99); Non-African American GFR(MDRD) >60 (>60 ml/min/1.73 sqM); Potassium 4.4 mmol/L (3.5-5.1); Sodium 137 mmol/L (137-145); Total Bilirubin 0.2 mg/dL (0.2-1.3); Total Protein 5.5 g/dL (6.3-8.2)
[2017-02-11] MEDS: SODIUM CHLORIDE 0.9% 1,000 ML IV SCH (08:00)
[2017-02-11] MEDS: methylPREDNISolone SOD SUCCI 40 MG/ML 1 ML VIAL IV SCH (08:30)
[2017-02-11] MEDS: PANTOPRAZOLE 40 MG/10 ML VIAL IVP SCH (08:30)
[2017-02-11 09:38] VITALS: BP 175/94; PULSE 81; TEMP 97.3
[2017-02-11] MEDS ORDERED: amLODIPine 5 MG TAB PO SCH (10:45)
--- NOTE | 2017-02-11 11:04 | P.DS ---
Providers Date of admission: 02/08/17 15:16 Expected date of discharge: 02/11/17 Attending physician: Tc Steinberg Consults: 02/08/17 15:53 Consult Physician Urgent Consulting Provider: Filomena Sherman Consult Reason/Comments: pancreatitis Do you want consulting provider notified?: Yes 02/09/17 10:33 Consult Physician Routine Consulting Provider: Jo-Ann Charlton Consult Reason/Comments: pulmonary nodules seen on CT chest Do you want consulting provider notified?: Yes Primary care physician: [facility] Course: 71-year-old male who presented to the emergency room on 02/08/2017 with a chief complaint of shortness of breath and coughing for the past 2-3 days. The patient presented to urgent care earlier in the day and a chest x-ray was completed which was suggestive of pneumonia and the patient was advised to come to the emergency room for further evaluation. The patient has a history of hypertension, GERD, diverticulosis, and anemia. The patient is a former cigarette smoker. He states he now smokes tobacco appetite. The patient stated it is the equivalent to 2-3 packs of cigarettes a day. The patient also states he has a daily alcohol drinker and states he drinks at least 3 beers daily. In the emergency room a chest x-ray was completed which showed bilateral lower lobe patchy infiltrates and possible trace pleural effusions. The patient's white count was elevated at 14.6. His hemoglobin was 12.4. His lactic acid was 2.9. Repeat lactic acid was 3.7. Troponin was negative 1. Amylase was elevated at 411 and lipase was elevated at 3758. LFTs were within normal range. D-dimer was elevated at 7.72. Patient underwent CT of the chest which was negative for a pulmonary embolus. However it did show small effusions with patchy left greater than right bibasilar opacities. Moderate wall thickening of the distal esophagus was seen with a possible moderately sized hiatal hernia. Edema and fluid tracking along the upper abdominal retroperitoneum, anterior margin of the pancreas, and in the gastrohepatic ligament region in which pancreatitis could not be excluded. Additionally there was poor delineation between the fluid in the posterior gastric fundus and which peptic ulcer disease could not be excluded. There were also scattered pulmonary nodules seen measuring up to 6 mm. Lastly there was a 1.2 cm hypoechoic lesion in the pancreatic tail noted. The patient was admitted to the hospital under the care of Dr. Steinberg. Consultations were placed to GI service and pulmonary. The patient was seen and evaluated by GI service. Case was discussed with Zoe Baeza NP. The patient will need MRI of the pancreas outpatient. amylase and lipase trending downwad. CA 19-9 marker and CEA were ordered by GI and were within normal limits. Urine culture was negative. Blood cultures are negative. Sputum culture was ordered and is pending collection. Patient underwent EGD on 02/10/2017, which revealed small hiatal hernia, no evidence of esophagitis or complicated reflux, and mild antral gastritis. Abnormalities that were found on computed tomography scan were not substantiated during EGD. His albuterol breathing treatments have been discontinued secondary to adverse reactions and he was started on IV steroids every 8 hours. He was started on xanax PRN for anxiety. Pulmonary was consulted regading pulmonary nodules and found to be likely nonspecific in the setting of pneumonia. Recommend patient having follow-up CT in 3-6 months as outpatient. The patient was deemed stable for discharge per Dr. Steinberg. DISCHARGE DIAGNOSIS: Patchy infiltrates in bilateral lower lung lobes, suggestive of pneumonia, sputum culture ordered Pancreatitis, CT scan shows 1.2cm hypoechoic lesion in the pancreatic tail Elevated lactic acid and leukocytosis, suggestive of early sepsis, continued leukocytosis likely secondary to IV steroids, patient is not clinically showing evidence of sepsis Tachycardia and anxiety, secondary to albuterol nebulizer treatment, resolved Hypertensive urgency in ER, resolved Elevated D-Dimer, CT Chest negative for pulmonary embolus Pulmonary nodules measuring up to 6mm, as revealed by CT chest Moderate wall thickening of the distal esophagus and possible moderately sized hiatal hernia, as revealed by CT, S/P EGD revealing small hiatal hernia, no evidence of esophagitis or complicated reflux, and mild antral gastritis. Abnormalities that were found on computed tomography scan were not substantiated during EGD. Gastroesophageal reflux disease Essential hypertension Chronic alcohol use, patient drinks minimum of 3 beers daily Nicotine dependence, patient is a former cigarette smoker and current tobacco pipe smoker Nurse practitioner note has been reviewed by physician. Signing provider agrees with the documented findings, assessment, and plan of care. Patient Condition at Discharge: Stable Plan - Discharge Summary Discharge Rx Participant: No New Discharge Prescriptions: Logan Pantoprazole [Protonix] 40 mg PO DAILY #30 tablet. Azithromycin [Zithromax] 500 mg PO DAILY 5 Days #5 tab Cefuroxime [Ceftin] 500 mg PO BID 7 Days #14 tablet predniSONE 10 mg PO DAILY #24 tab Continue amLODIPine [Norvasc] 5 mg PO BID Moexipril HCl [Univasc] 15 mg PO BID Bisacodyl [Dulcolax] 5 mg PO DAILY PRN PRN Reason: Constipation Melatonin 10 mg PO HS Discontinued Omeprazole 20 mg PO BID Discharge Medication List amLODIPine [Norvasc] 5 mg PO BID 08/05/15 [History] Moexipril HCl [Univasc] 15 mg PO BID 08/06/15 [History] Bisacodyl [Dulcolax] 5 mg PO DAILY PRN 12/28/16 [History] Melatonin 10 mg PO HS 02/08/17 [History] Pantoprazole [Protonix] 40 mg PO DAILY #30 tablet. 02/09/17 [Rx] Azithromycin [Zithromax] 500 mg PO DAILY 5 Days #5 tab 02/11/17 [Rx] Cefuroxime [Ceftin] 500 mg PO BID 7 Days #14 tablet 02/11/17 [Rx] predniSONE 10 mg PO DAILY #24 tab 02/11/17 [Rx] Follow up Appointment(s)/Referral(s): Jo-Ann Charlton MD [STAFF PHYSICIAN] - 1 Week Arden Waterman MD [STAFF PHYSICIAN] - 03/08/17 5:15 pm (pancreatitis) Tc Steinberg Jr, DO [Primary Care Provider] - 1-2 days Ambulatory/Diagnostic Orders: Amylase [LAB.AMB] Time Frame: 02/11/17, Location: Determined By Patient Lipase [LAB.AMB] Time Frame: 02/11/17, Location: Determined By Patient Miscellaneous Radiology Order [RAD.AMB] Time Frame: 1 Week, Location: Determined By Patient Activity/Diet/Wound Care/Special Instructions: Patient needs follow-up CT of the chest in 3-6 months to evaluate pulmonary nodules Discharge Disposition: HOME SELF-CARE
--- NOTE | 2017-02-11 11:05 | P.PN ---
Subjective Progress Note Date: 02/11/17 Principal diagnosis: acute respiratory failure, unspecified, due to bilateral lower lobe pneumonia and COPD exacerbation Tom is a 71-year-old white male patient who presented to the emergency department on 02/08/2017 at approximately 11:30 in the morning with complaints of anterior chest wall pain that was worse with inspiration, and associated shortness of breath of a couple of days' duration. Denied any fever, or chills , denied any hemoptysis, or significant chest congestion. Did have a cough which was mostly nonproductive. He was diagnosed with COPD. He is a tobacco pipe smoker since 2009. Patient initially thought he had pleurisy and had presented to the urgent care where he was given nebulized treatments without much improvement and subsequently directed to the [facility] ED. On presentation, there is evidence of leukocytosis, lactic acidosis, and elevated amylase and lipase. Chest x-ray on 02/08/2017 showed patchy infiltrates in the bilateral lower lobes and trace effusions. CT chest from 02/08/2017 showed no evidence of pulmonary embolus, and was positive for patchy left greater than the right bibasilar airspace disease consistent with pneumonia or parapneumonic process and the presence of scattered pulmonary nodules. Blood cultures showed no growth after 24 hours. Urine culture in progress. Patient has been covered empirically with IV Zithromax and Rocephin, started on DuoNeb nebulized treatments. We were consulted in regards to the pulmonary nodules seen on the CTA from 02/08/2017. On evaluation patient sitting up in bed, awake alert, is complaining of some posterior chest pain bilaterally, which is worse after DuoNeb every belies treatments, patient is slightly tachycardic and anxious. He is on room air with O2 sat at 99%. He is afebrile, he denies any significant dyspnea at this time, his biggest complaint is a posterior chest pain exacerbated by breathing treatments. On 02/10/2017 patient seen in follow-up. He reports significant improvement in his chest pain, and dyspnea. lung sounds are positive for findings respiratory crackles over bilateral bases, worse on the left. Good air entry bilaterally, no wheezes noted. No significant sputum production. aspirations are even and nonlabored, she is on room air with O2 sat at 93%. He is afebrile. his microbiology results have been reviewed and show no positive urine or blood cultures. continues on empiric abiotic coverage in the form of Zithromax and Rocephin. GI service has requested pulmonary clearance to proceed with esophagogastroduodenoscopy today. Patient is able to proceed with EGD from pulmonary standpoint. On 02/11/2017 patient is is doing very well, his lung sounds are negative for any wheezing, a few scattered rales at bilateral bases auscultated, but overall much improved since yesterday. Still not bringing up any sputum, he remains on room air without any major oxygenation issues. Microbiology results have been reviewed and showed no growth since admission. Patient is stable for discharge from pulmonary standpoint. Follow-up with Dr. Charlton in the office in one week. Objective - Vital Signs Vital signs: Vital Signs Temp 97.3 F L 02/11/17 07:00 Pulse 81 02/11/17 07:00 Resp 16 02/11/17 07:00 BP 175/94 02/11/17 07:00 Pulse Ox 95 02/11/17 07:00 Intake & Output 02/10/17 02/11/17 02/11/17 18:59 06:59 18:59 Intake Total 1300 1375 Balance 1300 1375 Weight 56.699 kg Intake: IV 300 Intake, IV Titration 1000 1375 Amount Sodium Chloride 0.9% 1, 1000 1375 000 ml @ 125 mls/hr IV . Q8H [facility] Rx#:[id number] Other: Voiding Method Toilet Toilet Toilet # Voids 3 - Exam GENERAL EXAM: Thin white elderly male, slightly flushed, but in no acute distress. Alert, active, comfortable in no apparent distress. HEAD: Normocephalic/atraumatic. EYES: Normal reaction of pupils, equal size. Conjunctiva pink, sclera white. NOSE: Clear with pink turbinates. THROAT: No erythema or exudates. NECK: No masses, no JVD, no thyroid enlargement, no adenopathy. CHEST: No chest wall deformity. Symmetrical expansion. LUNGS: Equal air entry with scattered coarse respiratory crackles over bilateral lower lobes CVS: Regular rate and rhythm, normal S1 and S2, no gallops, no murmurs, no rubs ABDOMEN: Soft, nontender. No hepatosplenomegaly, normal bowel sounds, no guarding or rigidity. EXTREMITIES: No clubbing, no edema, no cyanosis, 2+ pulses and upper and lower extremities. MUSCULOSKELETAL: Muscle strength and tone normal. SPINE: No scoliosis or deformity SKIN: No rashes CENTRAL NERVOUS SYSTEM: Alert and oriented 3. No focal deficits, tone is normal in all 4 extremities. PSYCHIATRIC: Alert and oriented 3. Appropriate affect. Intact judgment and insight. - Labs CBC & Chem 7: 02/11/17 07:21 02/11/17 07:21 Labs: Abnormal Lab Results - Last 24 Hours (Table) 02/11/17 02/11/17 Range/Units 07:21 07:21 WBC 18.6 H (3.8-10.6) k/uL RBC 3.94 L (4.30-5.90) m/uL Hgb 10.5 L (13.0-17.5) gm/dL Hct 35.1 L (39.0-53.0) % MCHC 30.0 L (31.0-37.0) g/dL RDW 17.6 H (11.5-15.5) % Neutrophils # 17.6 H (1.3-7.7) k/uL Lymphocytes # 0.5 L (1.0-4.8) k/uL Chloride 111 H (98-107) mmol/L Carbon Dioxide 19 L (22-30) mmol/L Glucose 104 H (74-99) mg/dL Calcium 8.1 L (8.4-10.2) mg/dL AST 14 L (17-59) U/L Total Protein 5.5 L (6.3-8.2) g/dL Albumin 2.5 L (3.5-5.0) g/dL Microbiology - Last 24 Hours (Table) 02/08/17 16:59 Blood Culture - Preliminary Blood No Growth after 48 hours 02/08/17 11:30 Blood Culture - Preliminary Blood No Growth after 48 hours Assessment and Plan Plan: Assessment: #1. Acute respiratory failure, unspecified, due to bilateral lower lobe pneumonia and COPD exacerbation #2. Current every day smoker #3. Lactic acidosis, present on admission, likely related to sepsis the source possibly from bilateral lower lobe pneumonia or possibly related to pancreatitis , blood culture shows no growth, urine culture pending. No sputum culture has been collected. #4. Multiple pulmonary nodules, nonspecific, likely related to pneumonia. Will follow-up in 3-[address] chest #5. Elevated d-dimer, CTA chest from 02/08/2017 is negative for PE #6. Distal thoracic esophageal hernia, GI service following. We cleared the patient for EGD today from pulmonary standpoint #7. Elevated lipase and amylase, CT chest showed hyperechoic lesion in the tail of the pancreas 1.2 cm with surrounding edema suggestive of acute pancreatitis, possible malignancy cannot be entirely excluded. GI service following. #8. History of gastric ulcer #9. History of anemia #10. History of diverticulosis #11. History of laminectomy Plan: Patient is doing very well, oxygenation is stable on room air, to see if can sputum production, he denies any chest wall pain. Overall much improved from his pulmonary standpoint. He is stable for discharge home today from our standpoint, he will continue on Zithromax 500 mg by mouth daily for 5 days and Ceftin 500 mg by mouth twice a day for 7 more days and prednisone taper over 12 days. Follow-up with Dr. Charlton in office in one week. I performed a history & physical examination of the patient and discussed their management with my nurse practitioner, Deysi Lozano. I reviewed the nurse practitioner's note and agree with the documented findings and plan of care. Lung sounds reveal good air entry bilaterally, with a few scattered rales. Overall much improved since admission. Stable for discharge today. The findings and the impression was discussed with the patient. I attest to the documentation by the nurse practitioner. Time with Patient: Less than 30
--- NOTE | 2017-02-11 12:43 | P.PN ---
Subjective Progress Note Date: 02/11/17 Principal diagnosis: pancreatitis Feels well. Afebrile. Breathing improved. Status post EGD no evidence of peptic ulcer disease hiatal hernia. Pancreatic enzymes improved. Objective - Vital Signs Vital signs: Vital Signs Temp 97.3 F L 02/11/17 07:00 Pulse 81 02/11/17 07:00 Resp 16 02/11/17 07:00 BP 175/94 02/11/17 07:00 Pulse Ox 95 02/11/17 07:00 Intake & Output 02/10/17 02/11/17 02/11/17 18:59 06:59 18:59 Intake Total 1300 1375 Balance 1300 1375 Weight 56.699 kg Intake: IV 300 Intake, IV Titration 1000 1375 Amount Sodium Chloride 0.9% 1, 1000 1375 000 ml @ 125 mls/hr IV . Q8H [facility] Rx#:[id number] Other: Voiding Method Toilet Toilet Toilet # Voids 3 - Exam General appearance: The patient is alert, oriented, in no acute distress. HET: Head is normocephalic and atraumatic. Pupils are equal and reactive. Oropharynx is clear without lesions. Neck: Supple without lymphadenopathy. Trachea midline. Heart: S1 S2. Regular rate and rhythm. Lungs: No crackles or wheezes are heard. Abdomen: Soft, nontender, nondistended with bowel sounds. No peritoneal signs. No palpable organomegaly or masses. Extremities: Normal skin color and turgor. No cyanosis, rash, ulceration, clubbing, or edema. Radial and pedal pulses are 2/4 bilaterally. Neurological: No focal deficits. Strength and sensation are grossly intact. - Labs CBC & Chem 7: 02/11/17 07:21 02/11/17 07:21 Labs: Abnormal Lab Results - Last 24 Hours (Table) 02/11/17 02/11/17 Range/Units 07:21 07:21 WBC 18.6 H (3.8-10.6) k/uL RBC 3.94 L (4.30-5.90) m/uL Hgb 10.5 L (13.0-17.5) gm/dL Hct 35.1 L (39.0-53.0) % MCHC 30.0 L (31.0-37.0) g/dL RDW 17.6 H (11.5-15.5) % Neutrophils # 17.6 H (1.3-7.7) k/uL Lymphocytes # 0.5 L (1.0-4.8) k/uL Chloride 111 H (98-107) mmol/L Carbon Dioxide 19 L (22-30) mmol/L Glucose 104 H (74-99) mg/dL Calcium 8.1 L (8.4-10.2) mg/dL AST 14 L (17-59) U/L Total Protein 5.5 L (6.3-8.2) g/dL Albumin 2.5 L (3.5-5.0) g/dL Microbiology - Last 24 Hours (Table) 02/08/17 16:59 Blood Culture - Preliminary Blood No Growth after 48 hours 02/08/17 11:30 Blood Culture - Preliminary Blood No Growth after 48 hours Assessment and Plan (1) Pancreatitis Narrative/Plan: Possible alcohol-related history of EtOH abuse and continuance of frequent alcohol consumption patient reported drinking 2-3 beers daily. Status post EGD with no evidence of peptic ulcer disease. CT chest reported focal ovoid hypodensity within the pancreas measuring 1.2 x 0.5 cm at the pancreatic tail level. Current Visit: Yes Status: Acute Code(s): K85.90 - ACUTE PANCREATITIS WITHOUT NECROSIS OR INFECTION, UNSP SNOMED Code(s): 72496669 Plan: 1. Discharge per medicine. Outpatient MRI pancreas; prescription provided. 2. RTO 3-4 weeks. 3. Alcohol abstinence reinforced. Assessment and plan a care discussed with Dr. Sherman
[2017-02-12] MEDS ORDERED: PANTOPRAZOLE 40 MG TABLET PO SCH (07:30)
== END 2017-02-11 12:55 | disposition home or self-care (01) | DRG 871 ==
LOC: EC 10:48 → 5MS5E 15:16
PROVIDERS: ADMIT Family Medicine; ATTEND Family Medicine
PROC: 0DB78ZX Excision of Stomach, Pylorus, Via Natural or Artificial Opening Endoscopic, Diagnostic (ICD-10-PCS; 2017-02-10)
PROC: 0DB58ZX Excision of Esophagus, Via Natural or Artificial Opening Endoscopic, Diagnostic (ICD-10-PCS; principal; 2017-02-10 16:25)
DX: A41.9 Sepsis, unspecified organism (principal); J18.9 Pneumonia, unspecified organism; K85.90 Acute pancreatitis without necrosis or infection, unspecified; E87.2 Acidosis; R06.03 Acute respiratory distress; J44.0 Chronic obstructive pulmonary disease with (acute) lower respiratory infection; J44.1 Chronic obstructive pulmonary disease with (acute) exacerbation; D64.9 Anemia, unspecified; F41.9 Anxiety disorder, unspecified; I16.0 Hypertensive urgency; R91.1 Solitary pulmonary nodule; I10 Essential (primary) hypertension; K59.00 Constipation, unspecified; K57.90 Diverticulosis of intestine, part unspecified, without perforation or abscess without bleeding; K44.9 Diaphragmatic hernia without obstruction or gangrene; F10.10 Alcohol abuse, uncomplicated; K29.60 Other gastritis without bleeding; K21.9 Gastro-esophageal reflux disease without esophagitis; R79.1 Abnormal coagulation profile; F17.290 Nicotine dependence, other tobacco product, uncomplicated; Z79.899 Other long term (current) drug therapy; Z87.11 Personal history of peptic ulcer disease; Z96.5 Presence of tooth-root and mandibular implants
CPT/HCPCS: 36415; 43239; 71020; 71275; 80053; 81001; 82150; 82378; 82550; 82553; 83605; 83690; 84484; 85025; 85379; 85610; 85730; 86301; 87040; 87086; 88305; 88342; 93005; 94640; 94760; 96374; 99291

== ENCOUNTER 2017-04-15 06:26 | Inpatient (IN) | payer MEDICARE, BC ==
[2017-04-15] MEDS ORDERED: SODIUM CHLORIDE 0.9% 1,000 ML IV STA ×2 (06:49)
--- NOTE | 2017-04-15 06:55 | ED ---
Abdominal Pain HPI - General Source: patient, EMS, RN notes reviewed Mode of arrival: EMS Limitations: no limitations - History of Present Illness MD Complaint: abdominal pain <Shay Sanchez - Last Filed: 04/15/17 06:55> <Shay Poole - Last Filed: 04/15/17 09:00> - General Chief Complaint: Abdominal Pain Stated Complaint: Abdominal Pain Time Seen by Provider: 04/15/17 06:26 - History of Present Illness Initial Comments: This is a 71-year-old male with a history of pancreatitis in February of this past year who was brought in by EMS today after being called by family as the patient started developing severe abdominal pain last evening. Some nausea no overt vomiting decreased oral intake. He is found to be tachycardic at about and otherwise stable. He denies any fevers chills or sweats. He was hoping to wait and see his doctor today but he states the pain got too bad. Is a history of hypertension and other problems which she states her in his records. (Shay Sanchez) - Related Data Home Medications Medication Instructions Recorded Confirmed amLODIPine [Norvasc] 5 mg PO BID 08/05/15 04/15/17 Moexipril HCl [Univasc] 15 mg PO BID 08/06/15 04/15/17 Bisacodyl [Dulcolax] 5 mg PO DAILY PRN 12/28/16 04/15/17 Melatonin 10 mg PO HS 02/08/17 04/15/17 Acetaminophen Tab [Tylenol Tab] 650 mg PO Q4H PRN 04/15/17 04/15/17 Previous Rx's Medication Instructions Recorded Pantoprazole [Protonix] 40 mg PO DAILY #30 tablet. 02/09/17 Allergies Allergy/AdvReac Type Severity Reaction Status Date / Time No Known Allergies Allergy Verified 04/15/17 08:44 Review of Systems ROS Other: All systems not noted in ROS Statement are negative. <Shay Sanchez - Last Filed: 04/15/17 06:55> ROS Other: All systems not noted in ROS Statement are negative. <Shay Poole - Last Filed: 04/15/17 09:00> ROS Statement: Those systems with pertinent positive or pertinent negative responses have been documented in the HPI. Past Medical History Past Medical History: Blood Disorder, GERD/Reflux, Hypertension Additional Past Medical History / Comment(s): HX of Stomach ulcer., Anemia, Constipation.DIVERTICULOSIS(PER COLONOSCOPY) History of Any Multi-Drug Resistant Organisms: None Reported Past Surgical History: Back Surgery, Tonsillectomy Additional Past Surgical History / Comment(s): laminectomy, DENTAL IMPLANTS, COLONOSCOPY. Left middle finger surgery. Past Anesthesia/Blood Transfusion Reactions: No Reported Reaction Past Psychological History: No Psychological Hx Reported Smoking Status: Current every day smoker - Past Family History Father Family Medical History: Cancer Additional Family Medical History / Comment(s): . Mother Family Medical History: GI Bleed <Shay Sanchez - Last Filed: 04/15/17 06:55> General Exam Limitations: no limitations General appearance: alert, anxious, in distress ENT exam: Present: mucous membranes dry Neck exam: Present: normal inspection, full ROM. Absent: tenderness, meningismus, lymphadenopathy Respiratory exam: Present: decreased breath sounds Cardiovascular Exam: Present: tachycardia GI/Abdominal exam: Present: soft, tenderness. Absent: pulsatile mass, hernia Rectal exam: Present: deferred Extremities exam: Present: normal inspection, full ROM, normal capillary refill. Absent: tenderness, pedal edema, joint swelling, calf tenderness Back exam: Present: normal inspection Neurological exam: Present: alert, oriented X3, CN II-XII intact Psychiatric exam: Present: normal affect, normal mood Skin exam: Present: warm, dry, intact (Patient's skin does appear to be somewhat icteric) <Shay Sanchez - Last Filed: 04/15/17 06:55> <Shay Poole - Last Filed: 04/15/17 09:00> - General Exam Comments Initial Comments: This is a well-developed asthenic appearing male who states his pain is 6/10 from 8/10 after the medication was given to him. (Shay Sanchez) Course <Shay Sanchez - Last Filed: 04/15/17 06:55> <Shay Poole - Last Filed: 04/15/17 09:00> Vital Signs 04/15/17 04/15/17 04/15/17 06:28 07:32 08:29 Temperature 97.5 F L 97.0 F L Pulse Rate 110 H 89 92 Respiratory 24 16 16 Rate Blood Pressure 154/83 137/73 125/72 O2 Sat by Pulse 97 Oximetry - Reevaluation(s) Reevaluation #1: 04/15/17 06:55 The patient's care will be endorsed to Dr. Poole at our shift change at 7 AM. (Shay Sanchez) Medical Decision Making <Shay Sanchez - Last Filed: 04/15/17 06:55> - Lab Data Result diagrams: 04/15/17 06:51 04/15/17 06:51 <Shay Poole - Last Filed: 04/15/17 09:00> - Medical Decision Making 71-year-old male with history of pancreatitis presents with severe abdominal pain. Patient's care was signed out at shift change, did reevaluate the patient had persistent pain. Exam initially reveals diffuse tenderness worse in the epigastrium with some rigidity of the abdomen. CT is obtained shows findings consistent with pancreatitis and pseudocyst. There is also some ascites throughout. Laboratory studies reveal white blood cell count 11.0, hemoglobin 10.9, amylase elevated at 664, lipase 3977. pt has had persistent pain. He will be admitted for further treatment of acute on chronic pancreatitis (Shay Poole) - Lab Data Lab Results 04/15/17 04/15/17 04/15/17 Range/Units 06:51 06:51 06:51 WBC 11.0 H (3.8-10.6) k/uL RBC 4.77 (4.30-5.90) m/uL Hgb 10.9 L (13.0-17.5) gm/dL Hct 36.1 L (39.0-53.0) % MCV 75.7 L D (80.0-100.0) fL MCH 22.9 L (25.0-35.0) pg MCHC 30.2 L (31.0-37.0) g/dL RDW 15.0 (11.5-15.5) % Plt Count 588 H (150-450) k/uL Neutrophils % 93 % Lymphocytes % 3 % Monocytes % 3 % Eosinophils % 0 % Basophils % 0 % Neutrophils # 10.2 H (1.3-7.7) k/uL Lymphocytes # 0.3 L (1.0-4.8) k/uL Monocytes # 0.4 (0-1.0) k/uL Eosinophils # 0.0 (0-0.7) k/uL Basophils # 0.0 (0-0.2) k/uL Hypochromasia Marked Poikilocytosis Slight Microcytosis Slight PT (9.0-12.0) sec INR (<1.2) APTT (22.0-30.0) sec Sodium 140 (137-145) mmol/L Potassium 3.9 (3.5-5.1) mmol/L Chloride 106 (98-107) mmol/L Carbon Dioxide 21 L (22-30) mmol/L Anion Gap 13 mmol/L BUN 11 (9-20) mg/dL Creatinine 0.85 (0.66-1.25) mg/dL Est GFR (MDRD) Af Amer >60 (>60 ml/min/1.73 sqM) Est GFR (MDRD) Non-Af >60 (>60 ml/min/1.73 sqM) Glucose 122 H (74-99) mg/dL Plasma Lactic Acid Paras (0.7-2.0) mmol/L Calcium 8.4 (8.4-10.2) mg/dL Total Bilirubin 0.6 (0.2-1.3) mg/dL AST 11 L (17-59) U/L ALT 19 L (21-72) U/L Alkaline Phosphatase 86 (38-126) U/L Total Creatine Kinase <20 L (55-170) U/L CK-MB (CK-2) <0.2 (0.0-2.4) ng/mL CK-MB (CK-2) Rel Index Troponin I <0.012 (0.000-0.034) ng/mL Total Protein 5.7 L (6.3-8.2) g/dL Albumin 2.9 L (3.5-5.0) g/dL Amylase 654 H* (30-110) U/L Lipase 3977 H (23-300) U/L 04/15/17 04/15/17 Range/Units 06:51 06:51 WBC (3.8-10.6) k/uL RBC (4.30-5.90) m/uL Hgb (13.0-17.5) gm/dL Hct (39.0-53.0) % MCV (80.0-100.0) fL MCH (25.0-35.0) pg MCHC (31.0-37.0) g/dL RDW (11.5-15.5) % Plt Count (150-450) k/uL Neutrophils % % Lymphocytes % % Monocytes % % Eosinophils % % Basophils % % Neutrophils # (1.3-7.7) k/uL Lymphocytes # (1.0-4.8) k/uL Monocytes # (0-1.0) k/uL Eosinophils # (0-0.7) k/uL Basophils # (0-0.2) k/uL Hypochromasia Poikilocytosis Microcytosis PT 10.7 (9.0-12.0) sec INR 1.1 (<1.2) APTT 21.7 L (22.0-30.0) sec Sodium (137-145) mmol/L Potassium (3.5-5.1) mmol/L Chloride (98-107) mmol/L Carbon Dioxide (22-30) mmol/L Anion Gap mmol/L BUN (9-20) mg/dL Creatinine (0.66-1.25) mg/dL Est GFR (MDRD) Af Amer (>60 ml/min/1.73 sqM) Est GFR (MDRD) Non-Af (>60 ml/min/1.73 sqM) Glucose (74-99) mg/dL Plasma Lactic Acid Paras 1.9 (0.7-2.0) mmol/L Calcium (8.4-10.2) mg/dL Total Bilirubin (0.2-1.3) mg/dL AST (17-59) U/L ALT (21-72) U/L Alkaline Phosphatase (38-126) U/L Total Creatine Kinase (55-170) U/L CK-MB (CK-2) (0.0-2.4) ng/mL CK-MB (CK-2) Rel Index Troponin I (0.000-0.034) ng/mL Total Protein (6.3-8.2) g/dL Albumin (3.5-5.0) g/dL Amylase (30-110) U/L Lipase (23-300) U/L Disposition <Shay Sanchez - Last Filed: 04/15/17 06:55> Decision to Admit Reason: Admit from EC Decision Date: 04/15/17 Decision Time: 08:39 <Shay Poole - Last Filed: 04/15/17 09:00> Clinical Impression: Pancreatitis, Acute pancreatitis Disposition: ADMITTED IP TO THIS [facility] Condition: Stable Referrals: Tc Steinberg Jr, [Primary Care Provider] - 1-2 days
[2017-04-15] MEDS: HYDROmorphone 1 MG/ML 1 ML SYRINGE IVP STA ×2 (06:57→08:33)
[2017-04-15 07:16] LABS: INR 1.1 (<1.2); Prothrombin Time 10.7 sec (9.0-12.0)
[2017-04-15 07:19] LABS: ALT 19 U/L (21-72); AST 11 U/L (17-59); Albumin 2.9 g/dL (3.5-5.0); Alkaline Phosphatase 86 U/L (38-126); Anion Gap 13 mmol/L; Blood Urea Nitrogen 11 mg/dL (9-20); Calcium 8.4 mg/dL (8.4-10.2); Carbon Dioxide 21 mmol/L (22-30); Chloride 106 mmol/L (98-107); Glucose 122 mg/dL (74-99); Potassium 3.9 mmol/L (3.5-5.1); Sodium 140 mmol/L (137-145); Total Bilirubin 0.6 mg/dL (0.2-1.3); Total Protein 5.7 g/dL (6.3-8.2)
[2017-04-15 07:22] LABS: Basophils % (A) 0 %; Eosinophils % (A) 0 %; HCT 36.1 % (39.0-53.0); HGB 10.9 gm/dL (13.0-17.5); Hypochromasia Marked; Lymphocytes # (A) 0.3 k/uL (1.0-4.8); Lymphocytes % (A) 3 %; MCH 22.9 pg (25.0-35.0); MCHC 30.2 g/dL (31.0-37.0); Mean Platelet Volume 6.9; Microcytosis Slight; Monocytes # (A) 0.4 k/uL (0-1.0); Monocytes % (A) 3 %; Neutrophils # (A) 10.2 k/uL (1.3-7.7); Neutrophils % (A) 93 %; Platelet Count 588 k/uL (150-450); Poikilocytosis Slight; RBC 4.77 m/uL (4.30-5.90)
--- NOTE | 2017-04-15 07:28 | XR ---
EXAMINATION TYPE: XR chest 2V DATE OF EXAM: 04/15/2017 COMPARISON: 03/29/2017 and 02/09/2017. HISTORY: Right-sided pain with history of pancreatitis TECHNIQUE: Frontal and lateral views of the chest are obtained. FINDINGS: There is increasing bibasilar subsegmental linear dependent atelectasis in comparison to t he prior exam. Costophrenic angles are well aerated. No evidence of pneumothorax. Mild acromio clavic ular arthropathy and postsurgical changes of the thoracic spine are seen. Exaggerated thoracic kyphos is, generalized osseous demineralization and midthoracic vertebral compression deformities are unchan ged from the prior of 02/09/2017. Cardiac silhouette is not enlarged. IMPRESSION: Increasing linear bibasilar subsegmental dependent atelectasis. No focal consolidation.
[2017-04-15 07:31] LABS: MCV 75.7 fL (80.0-100.0)
--- NOTE | 2017-04-15 07:31 | XR ---
EXAMINATION TYPE: XR KUB DATE OF EXAM: 04/15/2017 7:19 AM CLINICAL HISTORY: Right-sided abdominal pain and history of pancreatitis. TECHNIQUE: Single upright image of the abdomen is obtained. COMPARISON: None. FINDINGS: Scattered gas is seen in non-distended small bowel loops. Gas and fecal material is seen in non-distended colon. There is no visceromegaly, pneumoperitoneum, or abnormal calcification apprecia roly. The lung bases are clear and the osseous structures are intact. Moderate degenerative changes of the femoral acetabular joints and visualized thoracolumbar/lumbosacral spine are noted. Surgical tho racic screw is also present. Moderate atherosclerosis of the common iliac arteries and their branches . IMPRESSION: Nonobstructive bowel gas pattern.
[2017-04-15 07:33] LABS: Amylase 654 U/L (30-110); Lipase 3977 U/L (23-300)
[2017-04-15 07:49] LABS: Partial Thromboplastin Time 21.7 sec (22.0-30.0)
[2017-04-15 07:50] LABS: Creatine Kinase <20 U/L (55-170)
[2017-04-15] MEDS ORDERED: RX INFO: IV CONTRAST WAS GIVEN 1 EACH MISC MISCELLANE PRN (07:54)
[2017-04-15 08:03] LABS: Creatine Kinase MB <0.2 ng/mL (0.0-2.4); Troponin I <0.012 ng/mL (0.000-0.034)
--- NOTE | 2017-04-15 08:32 | CT ---
EXAMINATION TYPE: CT abdomen pelvis w con DATE OF EXAM: 04/15/2017 COMPARISON: Prior CT abdomen 03/21/2017 and CTA chest 03/21/2017 HISTORY: History of pancreatitis, loss of appetite CT DLP: 896 mGycm Automated exposure control for dose reduction was used. TECHNIQUE: Helical acquisition of images from the lung bases through the pelvis have been completed. CONTRAST: Performed without Oral Contrast and with IV Contrast, patient injected with 100 mL of Omnipaque 300. FINDINGS: LUNG BASES: Interstitial changes are present, there is some dependent atelectatic change. Nodular den sity is seen in the right middle lobe on image #3 which is noted on prior exam CTA chest 03/21/2017 a nd measures approximately 3 mm. AORTA: Extensive atheromatous changes are again noted. LIVER/GB: Some periportal edema changes present. PANCREAS: There is fluid present, tubular collection is present immediately anterior to the pancreas and extending into the region of the lesser sac and towards the andrae hepatis measuring approximately 10 x 2 cm x 2 cm within enhancing wall. Additional foci of fluid collection noted, along the posteri or aspect of the stomach a collection measures 3.6 x 2 cm which shows an enhancing wall, posterior to the transverse colon there is a large area of fluid which does not show an enhancing wall measuring 3.7 x 10.3 x 7.3 cm. SPLEEN: No significant abnormality is seen. ADRENALS: Left adrenal gland shows a prominent appearance as on prior exam, right adrenal is stable a nd unremarkable KIDNEYS: Right kidney is atrophic as on prior exam, left kidney shows no hydronephrosis. REPRODUCTIVE ORGANS: Prostate is enlarged BOWEL: Colonic interposition present anterior to the liver. Bowel wall thickening may be due to unde rlying adenopathy. FREE AIR: No Free Air visible. ASCITES: There is free fluid present along the paracolic gutter on the left and right, free fluid is present within the pelvis. There is mesenteric fluid present. Fluid is present about the liver to le sser extent the spleen. PELVIC ADENOPATHY: None visualized. RETROPERITONEAL ADENOPATHY: No Retroperitoneal Adenopathy visible. URINARY BLADDER: No significant abnormality is seen. OSSEOUS STRUCTURES: Stable IMPRESSION: FINDINGS ARE COMPATIBLE WITH PANCREATITIS WITH PROBABLE PSEUDOCYST FORMATION. THERE IS ASCITES PRESEN T. FOLLOW-UP RECOMMENDED.
[2017-04-15] MEDS ORDERED: HYDROmorphone 2 MG/ML 1 ML SYRINGE IVP PRN (08:57)
[2017-04-15] MEDS ORDERED: NALOXONE 0.4 MG/ML 1 ML VIAL IV PRN (08:57)
--- NOTE | 2017-04-15 11:36 | P.CONS ---
History of Present Illness - Reason for Consult Consult date: 04/15/17 Pancreatitis Requesting physician: Marcio Mitchell - Chief Complaint Abdominal pain - History of Present Illness 71-year-old male with a history of long-standing alcohol abuse drinks 6-7 beers daily quit a month ago presents with acute upper abdominal pain elevated pancreatic enzymes consistent with acute pancreatitis without fever. He was hospitalized 2 months ago with acute pancreatitis. EGD February 2017 for evaluation of possible neoplastic lesion in the esophagus per CT resulted in a normal EGD with mild antral gastritis no evidence of ulcers or gastric outlet obstruction. No evidence of neoplastic process. 03/03/2017 MRCP reported normal appearance of common bile duct and intrahepatic ducts. 7-10 Center cystic mass appeared pancreatic region. Additional satellite areas of cystic changes in the periportal region and near the pancreatic tail. CA-19-9 was 11.8 on 02/09/2017. 03/21/2017 CT abdomen with contrast redemonstrated a 14 x 6 no immediate and wild cystic lesion distal body of pancreas with inferior Medication with larger cystic lesions anteriorly. Extension of cyst to the diaphragmatic hiatus. White count 11. Hemoglobin 10.9. MCV 75. Platelets 588. Lipase 3977. Amylase 654. Total bilirubin 0.6. AST 11. ALT 19. Alkaline phosphatase 86. Triglycerides 79. Review of Systems Constitutional: Denies fever, chills, sweats, weight gain, or loss. HEENT: Negative for migraines, blurred vision or loss, earaches, drainage, tinnitus, oral mucosal lesions, dysphagia, or odynophagia. Cardiac: Hypertension. Negative for chest pain, arrhythmias, or palpitation. Respiratory: Negative for shortness of breath, hemoptysis, cough, or sputum production. Gastrointestinal: See HPI for pertinent findings. Genitourinary: Negative for hematuria, urgency, frequency, polyuria, dysuria, or penile discharge. Musculoskeletal: Negative for muscle aches, swelling, arthritis, and arthralgias. Neurologic: Negative for stroke or TIA. Endocrine: Negative for thyroid problems. Skin: Negative for rash or itching. Psychiatric: Negative history for depression and anxiety Past Medical History Past Medical History: Blood Disorder, GERD/Reflux, Hypertension Additional Past Medical History / Comment(s): HX of Stomach ulcer., Anemia, Constipation.DIVERTICULOSIS(PER COLONOSCOPY) History of Any Multi-Drug Resistant Organisms: None Reported Past Surgical History: Back Surgery, Tonsillectomy Additional Past Surgical History / Comment(s): laminectomy, DENTAL IMPLANTS, COLONOSCOPY. Left middle finger surgery. Past Anesthesia/Blood Transfusion Reactions: No Reported Reaction Past Psychological History: No Psychological Hx Reported Smoking Status: Current every day smoker - Past Family History Father Family Medical History: Cancer Additional Family Medical History / Comment(s): . Mother Family Medical History: GI Bleed Medications and Allergies Home Medications Medication Instructions Recorded Confirmed Type amLODIPine [Norvasc] 5 mg PO BID 08/05/15 04/15/17 History Moexipril HCl [Univasc] 15 mg PO BID 08/06/15 04/15/17 History Bisacodyl [Dulcolax] 5 mg PO DAILY PRN 12/28/16 04/15/17 History Melatonin 10 mg PO HS 02/08/17 04/15/17 History Pantoprazole [Protonix] 40 mg PO DAILY #30 tablet. 02/09/17 04/15/17 Rx Acetaminophen Tab [Tylenol Tab] 650 mg PO Q4H PRN 04/15/17 04/15/17 History Allergies Allergy/AdvReac Type Severity Reaction Status Date / Time No Known Allergies Allergy Verified 04/15/17 08:44 Physical Exam Vitals: Vital Signs Temp Pulse Resp BP Pulse Ox 04/15/17 08:29 92 16 125/72 04/15/17 07:32 97.0 F L 89 16 137/73 04/15/17 06:28 97.5 F L 110 H 24 154/83 97 Intake and Output 04/14/17 04/15/17 04/15/17 22:59 06:59 14:59 Other: Weight 54.431 kg General appearance: The patient is alert, oriented, in no acute distress. HET: Head is normocephalic and atraumatic. Pupils are equal and reactive. Oropharynx is clear without lesions. Neck: Supple without lymphadenopathy. Trachea midline. Heart: S1 S2. Regular rate and rhythm. Lungs: No crackles or wheezes are heard. Abdomen: Soft, tenderness midepigastrium upper abdomen, nondistended with bowel sounds. No peritoneal signs. No palpable organomegaly or masses. Extremities: Normal skin color and turgor. No cyanosis, rash, ulceration, clubbing, or edema. Radial and pedal pulses are 2/4 bilaterally. Neurological: No focal deficits. Strength and sensation are grossly intact. Results CBC & Chem 7: 04/15/17 06:51 04/15/17 06:51 Labs: Abnormal Lab Results - Last 24 Hours (Table) 04/15/17 04/15/17 04/15/17 Range/Units 06:51 06:51 06:51 WBC 11.0 H (3.8-10.6) k/uL Hgb 10.9 L (13.0-17.5) gm/dL Hct 36.1 L (39.0-53.0) % MCV 75.7 L D (80.0-100.0) fL MCH 22.9 L (25.0-35.0) pg MCHC 30.2 L (31.0-37.0) g/dL Plt Count 588 H (150-450) k/uL Neutrophils # 10.2 H (1.3-7.7) k/uL Lymphocytes # 0.3 L (1.0-4.8) k/uL APTT (22.0-30.0) sec Carbon Dioxide 21 L (22-30) mmol/L Glucose 122 H (74-99) mg/dL AST 11 L (17-59) U/L ALT 19 L (21-72) U/L Total Creatine Kinase <20 L (55-170) U/L Total Protein 5.7 L (6.3-8.2) g/dL Albumin 2.9 L (3.5-5.0) g/dL Amylase 654 H* (30-110) U/L Lipase 3977 H (23-300) U/L 04/15/17 Range/Units 06:51 WBC (3.8-10.6) k/uL Hgb (13.0-17.5) gm/dL Hct (39.0-53.0) % MCV (80.0-100.0) fL MCH (25.0-35.0) pg MCHC (31.0-37.0) g/dL Plt Count (150-450) k/uL Neutrophils # (1.3-7.7) k/uL Lymphocytes # (1.0-4.8) k/uL APTT 21.7 L (22.0-30.0) sec Carbon Dioxide (22-30) mmol/L Glucose (74-99) mg/dL AST (17-59) U/L ALT (21-72) U/L Total Creatine Kinase (55-170) U/L Total Protein (6.3-8.2) g/dL Albumin (3.5-5.0) g/dL Amylase (30-110) U/L Lipase (23-300) U/L Assessment and Plan (1) Acute pancreatitis Narrative/Plan: Suspect alcohol-related however other differentials to consider is autoimmune pathology cystic neoplastic process cannot be entirely excluded Current Visit: Yes Status: Acute Code(s): K85.90 - ACUTE PANCREATITIS WITHOUT NECROSIS OR INFECTION, UNSP SNOMED Code(s): 567771224 (2) Pancreatic pseudocyst Current Visit: Yes Status: Acute Code(s): K86.3 - PSEUDOCYST OF PANCREAS SNOMED Code(s): 230422084 (3) H/O ETOH abuse Current Visit: Yes Status: Acute Code(s): Z87.898 - PERSONAL HISTORY OF OTHER SPECIFIED CONDITIONS SNOMED Code(s): 436234166 Plan: 1. Nothing by mouth except medications. We'll obtain JACKSON triglyceride level, IgG subclass 1-4, repeat CA-19-9 marker. 2. IV hydration. 3. Protonix 40 mg IV daily. 4. Supportive measures. Outpatient endoscopic ultrasound discussed. We'll follow with you. 5. Alcohol abstinence advised. Thank you for this kind referral and the opportunity to participate in the care of your patient. This consultation was discussed with Dr. Sherman. The impression and plan of care have been directed as dictated.
[2017-04-15] MEDS: HYDROmorphone 2 MG/ML 1 ML SYRINGE IVP PRN ×4 (12:01→21:41)
[2017-04-15] MEDS ORDERED: LORazepam 2 MG/ML INJ IV PRN ×3 (12:55)
[2017-04-15] MEDS: LISINOPRIL 20 MG TAB PO SCH (12:57)
[2017-04-15] MEDS: PANTOPRAZOLE 40 MG/10 ML VIAL IVP SCH (12:57)
[2017-04-15] MEDS: SODIUM CHLORIDE 0.9% 1,000 ML IV SCH ×2 (12:58→20:30)
--- NOTE | 2017-04-15 15:14 | P.HPIM ---
History of Present Illness H&P Date: 04/15/17 Chief Complaint: Abdominal pain 71-year-old male who presented to the emergency room on 04/15/2017 with a chief complaint of generalized abdominal pain x 1 day. The patient also had complaints of nausea but denies emesis. Reports decreased oral intake secondary to abdominal pain. He denied chest pain or pressure. Denies shortness of breath. No constipation or diarrhea. In the emergency room, chest x-ray was completed revealing bibasilar subsegmental dependent atelectasis. KUB x-ray was completed revealing nonobstructive bowel gas pattern. A computed tomography scan of the abdomen and pelvis was completed revealing findings consistent with pancreatitis and probable pseudocyst and ascites. Laboratory studies revealed white count of 11 , hemoglobin 10.9, platelet count 588, INR 1.1, sodium 140, potassium 3.9, BUN 11, creatinine 0.85, lactic acid 1.9, AST 11, ALC 19, troponin negative 1, triglycerides 79, amylase 654, and lipase 3977. He was admitted to the hospital under the care of Dr. Mitchell. Consultations were placed to gastroenterology. The patient had a previous admission from 02/08/2017 until 02/11/2017 secondary to acute pancreatitis and pneumonia. During that hospitalization, the patient underwent a computed tomography scan that Moderate wall thickening of the distal esophagus was seen with a possible moderately sized hiatal hernia. Edema and fluid tracking along the upper abdominal retroperitoneum, anterior margin of the pancreas, and in the gastrohepatic ligament region in which pancreatitis could not be excluded. Additionally there was poor delineation between the fluid in the posterior gastric fundus and which peptic ulcer disease could not be excluded. There were also scattered pulmonary nodules seen measuring up to 6 mm. Lastly there was a 1.2 cm hypoechoic lesion in the pancreatic tail noted. He underwent an EGD which revealed small hiatal hernia, no evidence of esophagitis or complicated reflux, and mild antral gastritis. Abnormalities that were found on the computed tomography scan were not substantiated during EGD. Pulmonary evaluated patient during that hospitalization and pulmonary nodules were felt to be secondary to pneumonia and he was to follow up on an outpatient basis with poultry trimmer. The patient underwent an outpatient MRCP on 03/03/2017 which revealed normal- appearing common bile duct, 7-10 cm cystic mass in the pancreatic region, and additional satellite areas of cystic changes in the periportal region and near the pancreatic tail, right renal marked atrophy with compensatory hypertrophy of left kidney, stable 1.5 cm left adrenal mass unchanged from 2010, and small bilateral pleural effusions. The patient also underwent an outpatient computed tomography scan of the abdomen on 03/21/2017 which revealed findings suggestive of moderate acute on chronic pancreatitis with several pseudocyst or lobulated larger pseudocyst suspected, acute peripancreatitis fluid collection, significant mass effect on distal esophagus which shows severe wall thickening. In addition to the patient's history of pancreatitis and pneumonia, he also has a history of gastroesophageal reflux disease, hypertension, diverticulosis, laminectomy. He states that he is a former cigarette smoker and quit smoking cigarettes in 2001 and he has been smoking a pipe since that time. The patient has a history of alcohol abuse. He reports that he used to be a very heavy drinker but recently has been consuming 3-8 beers per day. He states that he has not consumed alcohol within the last 3 weeks. The patient was seen and examined at the bedside by Dr. Mitchell. He states he is having severe abdominal pain at this time. He denies nausea or vomiting currently. Denies chest pain or shortness of breath. Denies constipation or diarrhea. His vital signs have remained stable. He is afebrile. He denies additional concerns at this time. Past Medical History Past Medical History: Blood Disorder, GERD/Reflux, Hypertension Additional Past Medical History / Comment(s): HX of Stomach ulcer., Anemia, Constipation.DIVERTICULOSIS(PER COLONOSCOPY) History of Any Multi-Drug Resistant Organisms: None Reported Past Surgical History: Back Surgery, Tonsillectomy Additional Past Surgical History / Comment(s): laminectomy, DENTAL IMPLANTS, COLONOSCOPY. Left middle finger surgery. Past Anesthesia/Blood Transfusion Reactions: No Reported Reaction Past Psychological History: No Psychological Hx Reported Smoking Status: Current every day smoker - Past Family History Father Family Medical History: Cancer Additional Family Medical History / Comment(s): . Mother Family Medical History: GI Bleed Additional Family Medical History / Comment(s): MOTHER IS 93 YRS OLD. Medications and Allergies Home Medications Medication Instructions Recorded Confirmed Type amLODIPine [Norvasc] 5 mg PO BID 08/05/15 04/15/17 History Moexipril HCl [Univasc] 15 mg PO BID 08/06/15 04/15/17 History Bisacodyl [Dulcolax] 5 mg PO DAILY PRN 12/28/16 04/15/17 History Melatonin 10 mg PO HS 02/08/17 04/15/17 History Pantoprazole [Protonix] 40 mg PO DAILY #30 tablet. 02/09/17 04/15/17 Rx Acetaminophen Tab [Tylenol Tab] 650 mg PO Q4H PRN 04/15/17 04/15/17 History Allergies Allergy/AdvReac Type Severity Reaction Status Date / Time No Known Allergies Allergy Verified 04/15/17 08:44 Physical Exam Vitals: Vital Signs Temp Pulse Pulse Resp BP BP Pulse Ox 04/15/17 11:05 97.1 F L 104 H 16 116/71 95 04/15/17 10:29 98.4 F 90 16 124/70 96 04/15/17 08:29 92 16 125/72 04/15/17 07:32 97.0 F L 89 16 137/73 04/15/17 06:28 97.5 F L 110 H 24 154/83 97 Intake and Output 04/14/17 04/15/17 04/15/17 22:59 06:59 14:59 Other: Weight 54.431 kg Results CBC & Chem 7: 04/15/17 06:51 04/15/17 06:51 Labs: Abnormal Lab Results - Last 24 Hours (Table) 04/15/17 04/15/17 04/15/17 Range/Units 06:51 06:51 06:51 WBC 11.0 H (3.8-10.6) k/uL Hgb 10.9 L (13.0-17.5) gm/dL Hct 36.1 L (39.0-53.0) % MCV 75.7 L D (80.0-100.0) fL MCH 22.9 L (25.0-35.0) pg MCHC 30.2 L (31.0-37.0) g/dL Plt Count 588 H (150-450) k/uL Neutrophils # 10.2 H (1.3-7.7) k/uL Lymphocytes # 0.3 L (1.0-4.8) k/uL APTT (22.0-30.0) sec Carbon Dioxide 21 L (22-30) mmol/L Glucose 122 H (74-99) mg/dL AST 11 L (17-59) U/L ALT 19 L (21-72) U/L Total Creatine Kinase <20 L (55-170) U/L Total Protein 5.7 L (6.3-8.2) g/dL Albumin 2.9 L (3.5-5.0) g/dL Amylase 654 H* (30-110) U/L Lipase 3977 H (23-300) U/L 04/15/17 Range/Units 06:51 WBC (3.8-10.6) k/uL Hgb (13.0-17.5) gm/dL Hct (39.0-53.0) % MCV (80.0-100.0) fL MCH (25.0-35.0) pg MCHC (31.0-37.0) g/dL Plt Count (150-450) k/uL Neutrophils # (1.3-7.7) k/uL Lymphocytes # (1.0-4.8) k/uL APTT 21.7 L (22.0-30.0) sec Carbon Dioxide (22-30) mmol/L Glucose (74-99) mg/dL AST (17-59) U/L ALT (21-72) U/L Total Creatine Kinase (55-170) U/L Total Protein (6.3-8.2) g/dL Albumin (3.5-5.0) g/dL Amylase (30-110) U/L Lipase (23-300) U/L Thrombosis Risk Factor Assmnt - Choose All That Apply Any of the Below Risk Factors Present?: Yes Other Risk Factors: Yes Each Risk Factor Represents 2 Points: Age 61-74 years Other congenital or acquired thrombophilia - If yes, enter type in comment: No Thrombosis Risk Factor Assessment Total Risk Factor Score: 2 Thrombosis Risk Factor Assessment Level: Low Risk Assessment and Plan Plan: ASSESSMENT: Acute pancreatitis and pancreatic pseudocyst, patient denies alcohol use, etiology uncertain at this time Abdominal pain, present on admission, secondary to pancreatitis Recent hospital admission in February 2017 secondary to acute pancreatitis and pneumonia Gastroesophageal reflux disease Essential hypertension Nicotine dependence, patient is a former cigarette smoker and current tobacco pipe smoker History of alcohol abuse, patient reports drinking 3-8 beers a day but states he quit 3 weeks ago PLAN: -GI on consult. Appreciate recommendations and input -NPO except for medications and ice chips -Pain control: Dilaudid 1 mg every 3 hours -Continue IV fluid at 125 mL an hour -CIWA protocol -Home meds as appropriate -Monitor labs. Repeat in a.m. -GI prophylaxis: Protonix 40 mg IV daily -DVT prophylaxis: Venodyne's to bilateral lower extremities -Monitor vital signs and address as appropriate -Discharge planning: Patient to return home when stable -Further recommendations pending patient's course Nurse practitioner note has been reviewed by physician. Signing provider agrees with the documented findings, assessment, and plan of care.
[2017-04-15] MEDS: THIAMINE 100 MG TAB PO SCH (17:57)
[2017-04-15] MEDS: ONDANSETRON 4 MG/2 ML VIAL IVP PRN (18:55)
[2017-04-15] MEDS: MELATONIN 5 MG TABLET PO SCH (20:28)
[2017-04-15] MEDS: amLODIPine 5 MG TAB PO SCH (20:28)
[2017-04-16] MEDS: HYDROmorphone 2 MG/ML 1 ML SYRINGE IVP PRN ×7 (01:58→23:55)
[2017-04-16 04:15] LABS: Appearance,Urine Clear (Clear); Bilirubin,Urine Negative (Negative); Blood,Urine Small (Negative); Color,Urine Yellow; Glucose,Urine (UA) Trace (Negative); Ketones,Urine Negative (Negative); Leukocyte Esterase,Urine Negative (Negative); Mucus,Urine Rare /hpf; Nitrite,Urine Negative (Negative); PH, Urine 5.5 (5.0-8.0); Protein,Urine Trace (Negative); RBC,Urine 2 /hpf (0-5); Specific Gravity,Urine 1.021 (1.001-1.035); Urobilinogen,Urine <2.0 mg/dL (<2.0); WBC,Urine 3 /hpf (0-5)
[2017-04-16] MEDS: SODIUM CHLORIDE 0.9% 1,000 ML IV SCH ×3 (04:31→20:12)
[2017-04-16 08:10] LABS: Glucose,Whole Blood 152 mg/dL (75-99)
[2017-04-16 08:50] LABS: Basophils % (A) 0 %; Eosinophils % (A) 0 %; HCT 36.5 % (39.0-53.0); HGB 10.5 gm/dL (13.0-17.5); Hypochromasia Marked; Lymphocytes # (A) 0.5 k/uL (1.0-4.8); Lymphocytes % (A) 2 %; MCH 22.5 pg (25.0-35.0); MCHC 28.6 g/dL (31.0-37.0); MCV 78.4 fL (80.0-100.0); Mean Platelet Volume 6.5; Monocytes # (A) 0.8 k/uL (0-1.0); Monocytes % (A) 4 %; Neutrophils # (A) 19.4 k/uL (1.3-7.7); Neutrophils % (A) 93 %; Platelet Count 629 k/uL (150-450); Poikilocytosis Slight; RBC 4.65 m/uL (4.30-5.90); RDW 15.1 % (11.5-15.5); WBC 20.8 k/uL (3.8-10.6)
[2017-04-16 09:17] LABS: ALT 19 U/L (21-72); AST 17 U/L (17-59); Albumin 2.7 g/dL (3.5-5.0); Alkaline Phosphatase 91 U/L (38-126); Anion Gap 13 mmol/L; Blood Urea Nitrogen 14 mg/dL (9-20); Calcium 8.7 mg/dL (8.4-10.2); Carbon Dioxide 22 mmol/L (22-30); Chloride 109 mmol/L (98-107); Glucose 130 mg/dL (74-99); Magnesium 1.7 mg/dL (1.6-2.3); Potassium 3.9 mmol/L (3.5-5.1); Sodium 144 mmol/L (137-145); Total Bilirubin 0.2 mg/dL (0.2-1.3); Total Protein 5.6 g/dL (6.3-8.2)
[2017-04-16 09:36] LABS: Amylase 451 U/L (30-110)
[2017-04-16 09:37] LABS: Lipase 3281 U/L (23-300)
[2017-04-16] MEDS: amLODIPine 5 MG TAB PO SCH ×2 (09:59→20:11)
[2017-04-16] MEDS: PANTOPRAZOLE 40 MG/10 ML VIAL IVP SCH (09:59)
[2017-04-16] MEDS: LISINOPRIL 20 MG TAB PO SCH (09:59)
[2017-04-16 12:11] VITALS: BMI 20.5
[2017-04-16] MEDS: THIAMINE 100 MG TAB PO SCH ×2 (13:03→15:40)
--- NOTE | 2017-04-16 13:20 | P.PN ---
Subjective 04/15/2017:71-year-old male who presented to the emergency room on 03/2018 with a chief complaint of generalized abdominal pain x 1 day. The patient also had complaints of nausea but denies emesis. Reports decreased oral intake secondary to abdominal pain. He denied chest pain or pressure. Denies shortness of breath. No constipation or diarrhea. In the emergency room, chest x-ray was completed revealing bibasilar subsegmental dependent atelectasis. KUB x-ray was completed revealing nonobstructive bowel gas pattern. A computed tomography scan of the abdomen and pelvis was completed revealing findings consistent with pancreatitis and probable pseudocyst and ascites. Laboratory studies revealed white count of 11 , hemoglobin 10.9, platelet count 588, INR 1.1, sodium 140, potassium 3.9, BUN 11, creatinine 0.85, lactic acid 1.9, AST 11, ALC 19, troponin negative 1, triglycerides 79, amylase 654, and lipase 3977. He was admitted to the hospital under the care of Dr. Mitchell. Consultations were placed to gastroenterology. The patient had a previous admission from 02/08/2017 until 02/11/2017 secondary to acute pancreatitis and pneumonia. During that hospitalization, the patient underwent a computed tomography scan that Moderate wall thickening of the distal esophagus was seen with a possible moderately sized hiatal hernia. Edema and fluid tracking along the upper abdominal retroperitoneum, anterior margin of the pancreas, and in the gastrohepatic ligament region in which pancreatitis could not be excluded. Additionally there was poor delineation between the fluid in the posterior gastric fundus and which peptic ulcer disease could not be excluded. There were also scattered pulmonary nodules seen measuring up to 6 mm. Lastly there was a 1.2 cm hypoechoic lesion in the pancreatic tail noted. He underwent an EGD which revealed small hiatal hernia, no evidence of esophagitis or complicated reflux, and mild antral gastritis. Abnormalities that were found on the computed tomography scan were not substantiated during EGD. Pulmonary evaluated patient during that hospitalization and pulmonary nodules were felt to be secondary to pneumonia and he was to follow up on an outpatient basis with technical specialist. The patient underwent an outpatient MRCP on 03/03/2017 which revealed normal- appearing common bile duct, 7-10 cm cystic mass in the pancreatic region, and additional satellite areas of cystic changes in the periportal region and near the pancreatic tail, right renal marked atrophy with compensatory hypertrophy of left kidney, stable 1.5 cm left adrenal mass unchanged from 2009, and small bilateral pleural effusions. The patient also underwent an outpatient computed tomography scan of the abdomen on 03/21/2017 which revealed findings suggestive of moderate acute on chronic pancreatitis with several pseudocyst or lobulated larger pseudocyst suspected, acute peripancreatitis fluid collection, significant mass effect on distal esophagus which shows severe wall thickening. In addition to the patient's history of pancreatitis and pneumonia, he also has a history of gastroesophageal reflux disease, hypertension, diverticulosis, laminectomy. He states that he is a former cigarette smoker and quit smoking cigarettes in 2001 and he has been smoking a pipe since that time. The patient has a history of alcohol abuse. He reports that he used to be a very heavy drinker but recently has been consuming 3-8 beers per day. He states that he has not consumed alcohol within the last 3 weeks. The patient was seen and examined at the bedside. He states he is having severe abdominal pain at this time. He denies nausea or vomiting currently. Denies chest pain or shortness of breath. Denies constipation or diarrhea. His vital signs have remained stable. He is afebrile. He denies additional concerns at this time. 04/16/2017: The patient continues to experience pain. Overnight he had urinary retention, requiring a straight cath 2. The third time a Mendieta catheter was placed. He continues to complain of epigastric abdominal pain. Nursing reports that he receives Dilaudid and then falls asleep.their consultation was reviewed.he remains nothing by mouth. He denies a bowel movement. He denies any chest pains, pressures, shortness of breath. Objective - Vital Signs Vital signs: Vital Signs Temp 97.6 F 04/16/17 07:00 Pulse 127 H 04/16/17 07:00 Resp 18 04/16/17 07:00 BP 153/99 04/16/17 07:00 Pulse Ox 97 04/16/17 07:00 Intake & Output 04/15/17 04/16/17 04/16/17 18:59 06:59 18:59 Intake Total 0 0 Output Total 2675 600 Balance 0 -2675 -600 Weight 54.431 kg Intake: Oral 0 0 Output: Urine 1875 600 Straight 975 Uretheral (Mendieta) 600 Post Void Residual 800 Other: Voiding Method Indwelling Catheter # Voids 0 1 - Exam General: The patient is awake and alert, in distress from pain, with any sort of motion. He is thin and looks his stated age Neck: The neck is supple, there is no thyromegaly, lymphadenopathy, tenderness or JVD. Cardiovascular: S1S2 is normal, There is a regular rate and rhythm. No murmur, rub or gallop is appreciated. Respiratory: Lungs are clear to auscultation bilaterally, respirations are non -labored, breath sounds are equal. Gastrointestinal: Soft, non-distended, without masses or organomegaly noted. There is no rebound or guarding present. Bowel sounds are decreased. There is pain to palpation of the mid epigastrium. Musculoskeletal: Normal ROM, no tenderness, There is no pedal edema. There is no calf tenderness or swelling. No cords were appreciated. Neurological: CN II-XII intact, there are no obvious motor or sensory deficits. Coordination appears grossly intact. Speech is normal. Skin: Skin is warm and dry and no rashes or lesions are noted. - Labs CBC & Chem 7: 04/16/17 08:21 04/16/17 08:21 Labs: Abnormal Lab Results - Last 24 Hours (Table) 04/16/17 04/16/17 04/16/17 Range/Units 04:00 08:07 08:21 WBC 20.8 H (3.8-10.6) k/uL Hgb 10.5 L (13.0-17.5) gm/dL Hct 36.5 L (39.0-53.0) % MCV 78.4 L (80.0-100.0) fL MCH 22.5 L (25.0-35.0) pg MCHC 28.6 L (31.0-37.0) g/dL Plt Count 629 H (150-450) k/uL Neutrophils # 19.4 H (1.3-7.7) k/uL Lymphocytes # 0.5 L (1.0-4.8) k/uL Chloride (98-107) mmol/L Glucose (74-99) mg/dL POC Glucose (mg/dL) 152 H (75-99) mg/dL ALT (21-72) U/L Total Protein (6.3-8.2) g/dL Albumin (3.5-5.0) g/dL Amylase (30-110) U/L Lipase (23-300) U/L Urine Protein Trace H (Negative) Urine Glucose (UA) Trace H (Negative) Urine Blood Small H (Negative) Urine Mucus Rare H (None) /hpf 04/16/17 Range/Units 08:21 WBC (3.8-10.6) k/uL Hgb (13.0-17.5) gm/dL Hct (39.0-53.0) % MCV (80.0-100.0) fL MCH (25.0-35.0) pg MCHC (31.0-37.0) g/dL Plt Count (150-450) k/uL Neutrophils # (1.3-7.7) k/uL Lymphocytes # (1.0-4.8) k/uL Chloride 109 H (98-107) mmol/L Glucose 130 H (74-99) mg/dL POC Glucose (mg/dL) (75-99) mg/dL ALT 19 L (21-72) U/L Total Protein 5.6 L (6.3-8.2) g/dL Albumin 2.7 L (3.5-5.0) g/dL Amylase 451 H* (30-110) U/L Lipase 3281 H (23-300) U/L Urine Protein (Negative) Urine Glucose (UA) (Negative) Urine Blood (Negative) Urine Mucus (None) /hpf Assessment and Plan (1) Leukocytosis Current Visit: Yes Status: Acute Code(s): D72.829 - ELEVATED WHITE BLOOD CELL COUNT, UNSPECIFIED SNOMED Code(s): 088808118 (2) Microcytic anemia Current Visit: Yes Status: Acute Code(s): D50.9 - IRON DEFICIENCY ANEMIA, UNSPECIFIED SNOMED Code(s): 502925079 (3) Acute pancreatitis Current Visit: Yes Status: Acute Code(s): K85.90 - ACUTE PANCREATITIS WITHOUT NECROSIS OR INFECTION, UNSP SNOMED Code(s): 291276324 (4) H/O ETOH abuse Current Visit: Yes Status: Acute Code(s): Z87.898 - PERSONAL HISTORY OF OTHER SPECIFIED CONDITIONS SNOMED Code(s): 999687374 (5) Pancreatic pseudocyst Current Visit: Yes Status: Acute Code(s): K86.3 - PSEUDOCYST OF PANCREAS SNOMED Code(s): 601972012 Plan: acute pancreatitis with pancreatic cyst possible ascites:gastroneurology is following. Amylase and lipase are improved. He remains nothing by mouth on IV fluids. GI consult reviewed. Continue medications for pain, CIWA protocol, Leukocytosis: Most likely reactive, due to significant illness, we will add an antibiotic. Microcytic anemia: We'll monitor, when not nothing by mouth Will add iron supplements. Thrombocytosis: Most likely reactive, we'll follow hypertension: Continue amlodipine and lisinopril GERD: He will continue on Protonix. Tobaccoism: We'll monitor. EtOH abuse: See above DVT prophylaxis: SCDs in place GI prophylaxis: He remains on Protonix Reevaluate him in the next 24 hours. Nursing will watch for uncontrolled pain.
--- NOTE | 2017-04-16 13:45 | PN ---
PROGRESS NOTE DATE OF SERVICE: 04/16/2017 The patient is a 71-year-old pleasant white male with chronic history of alcohol abuse, admitted to hospital with worsening abdominal pain for the last few days duration. He was seen in consultation yesterday. He was noted to have elevated amylase and lipase consistent with acute pancreatitis. The patient had a similar hospitalization in February of this year at which time CT of the abdomen did reveal large pancreatic pseudocyst measuring 4 x 6 cm in size. The patient has history of heavy alcohol abuse of several years to duration which he quit about a month ago. Today, he still complains of epigastric discomfort. Nausea, vomiting is better. He has received Dilaudid every 3 to 4 hours and requesting for more pain medications. He denies any fever, chills, or night sweats. PHYSICAL EXAMINATION: On physical examination, he appears comfortable. Blood pressure is 151/61, pulse rate 91, temperature 96.8. HEENT EXAMINATION: Unremarkable. Conjunctivae pink. Sclerae anicteric. Oral cavity no lesions. NECK: No JVD or lymph node enlargement. Chest was clear to auscultation. HEART: Regular rate and rhythm. Abdomen is soft, it was distended. There was mild tenderness in the epigastric area. Bowel sounds are positive. No organomegaly. EXTREMITIES: No pedal edema. SKIN: No rashes. NEURO: He is alert and oriented x3. No focal deficits. LABS: Labs from today, WBC is 20.8, hemoglobin 10.5, platelets 629. Basic metabolic panel is within normal limits. Amylase is 451 and lipase is 3281. ALT, AST is within normal limits. CT of the abdomen that was done yesterday, compared to the previous one from March, showed ascites as well as pancreatitis with pseudocyst formation. The largest of the pseudocyst measuring 10 x 2 cm and another one was 3 x 10 cm. IMPRESSION: Chronic relapsing pancreatitis complicated with pseudocyst formation. The patient with recent hospitalization about a month ago with acute pancreatitis all related to chronic alcohol abuse. Recent CAT scan does show multiple pseudocysts, the largest measuring 10 x 3 cm pseudocyst as well as some amount of ascites. RECOMMENDATIONS: 1. Keep him n.p.o. 2. Aggressive IV hydration. 3. Pain medications as needed. 4. Continue with symptomatic and supportive care and will follow the patient closely during his hospital stay. I did discuss with the patient. I reviewed the findings of the CAT scan with the patient and compared the current CAT scan findings to the previous one from March and there is some improvement in the size of the pseudocyst formation and hence, at this time, I think we should continue with conservative approach in managing the pseudocyst. Thank you for this consultation. LOBO / CHRISSIE: [id number] /
[2017-04-16] MEDS: MELATONIN 5 MG TABLET PO SCH (20:11)
[2017-04-17] MEDS: HYDROmorphone 2 MG/ML 1 ML SYRINGE IVP PRN ×4 (03:58→17:17)
[2017-04-17] MEDS: SODIUM CHLORIDE 0.9% 1,000 ML IV SCH ×3 (03:59→21:41)
[2017-04-17 08:03] LABS: Anisocytosis Slight; Basophils # (A) 0.1 k/uL (0-0.2); Basophils % (A) 0 %; Eosinophils % (A) 0 %; HCT 34.8 % (39.0-53.0); HGB 9.9 gm/dL (13.0-17.5); Hypochromasia Marked; Lymphocytes # (A) 0.3 k/uL (1.0-4.8); Lymphocytes % (A) 1 %; MCH 21.9 pg (25.0-35.0); MCHC 28.4 g/dL (31.0-37.0); MCV 77.1 fL (80.0-100.0); Mean Platelet Volume 7.1; Microcytosis Slight; Monocytes % (A) 4 %; Neutrophils # (A) 21.5 k/uL (1.3-7.7); Neutrophils % (A) 94 %; Platelet Count 529 k/uL (150-450); RBC 4.51 m/uL (4.30-5.90); RDW 16.7 % (11.5-15.5); WBC 22.9 k/uL (3.8-10.6)
[2017-04-17 08:16] LABS: Amylase 251 U/L (30-110); Anion Gap 11 mmol/L; Blood Urea Nitrogen 13 mg/dL (9-20); Calcium 8.5 mg/dL (8.4-10.2); Carbon Dioxide 25 mmol/L (22-30); Chloride 109 mmol/L (98-107); Glucose 99 mg/dL (74-99); Lipase 902 U/L (23-300); Magnesium 1.9 mg/dL (1.6-2.3); Sodium 145 mmol/L (137-145)
[2017-04-17] MEDS: amLODIPine 5 MG TAB PO SCH ×2 (08:47→21:40)
[2017-04-17] MEDS: PANTOPRAZOLE 40 MG/10 ML VIAL IVP SCH (08:47)
[2017-04-17] MEDS: LISINOPRIL 20 MG TAB PO SCH (08:47)
[2017-04-17] MEDS: THIAMINE 100 MG TAB PO SCH ×2 (08:47→17:41)
[2017-04-17 10:38] LABS: Toxic Granulation Present
[2017-04-17 10:39] LABS: Poikilocytosis (M) Present
--- NOTE | 2017-04-17 12:02 | P.PN ---
Subjective 04/15/2017:71-year-old male who presented to the emergency room on 03/2018 with a chief complaint of generalized abdominal pain x 1 day. The patient also had complaints of nausea but denies emesis. Reports decreased oral intake secondary to abdominal pain. He denied chest pain or pressure. Denies shortness of breath. No constipation or diarrhea. In the emergency room, chest x-ray was completed revealing bibasilar subsegmental dependent atelectasis. KUB x-ray was completed revealing nonobstructive bowel gas pattern. A computed tomography scan of the abdomen and pelvis was completed revealing findings consistent with pancreatitis and probable pseudocyst and ascites. Laboratory studies revealed white count of 11 , hemoglobin 10.9, platelet count 588, INR 1.1, sodium 140, potassium 3.9, BUN 11, creatinine 0.85, lactic acid 1.9, AST 11, ALC 19, troponin negative 1, triglycerides 79, amylase 654, and lipase 3977. He was admitted to the hospital under the care of Dr. Mitchell. Consultations were placed to gastroenterology. The patient had a previous admission from 02/08/2017 until 02/11/2017 secondary to acute pancreatitis and pneumonia. During that hospitalization, the patient underwent a computed tomography scan that Moderate wall thickening of the distal esophagus was seen with a possible moderately sized hiatal hernia. Edema and fluid tracking along the upper abdominal retroperitoneum, anterior margin of the pancreas, and in the gastrohepatic ligament region in which pancreatitis could not be excluded. Additionally there was poor delineation between the fluid in the posterior gastric fundus and which peptic ulcer disease could not be excluded. There were also scattered pulmonary nodules seen measuring up to 6 mm. Lastly there was a 1.2 cm hypoechoic lesion in the pancreatic tail noted. He underwent an EGD which revealed small hiatal hernia, no evidence of esophagitis or complicated reflux, and mild antral gastritis. Abnormalities that were found on the computed tomography scan were not substantiated during EGD. 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 The patient underwent an outpatient MRCP on 03/03/2017 which revealed normal- appearing common bile duct, 7-10 cm cystic mass in the pancreatic region, and additional satellite areas of cystic changes in the periportal region and near the pancreatic tail, right renal marked atrophy with compensatory hypertrophy of left kidney, stable 1.5 cm left adrenal mass unchanged from 2010, and small bilateral pleural effusions. The patient also underwent an outpatient computed tomography scan of the abdomen on 03/21/2017 which revealed findings suggestive of moderate acute on chronic pancreatitis with several pseudocyst or lobulated larger pseudocyst suspected, acute peripancreatitis fluid collection, significant mass effect on distal esophagus which shows severe wall thickening. In addition to the patient's history of pancreatitis and pneumonia, he also has a history of gastroesophageal reflux disease, hypertension, diverticulosis, laminectomy. He states that he is a former cigarette smoker and quit smoking cigarettes in 2001 and he has been smoking a pipe since that time. The patient has a history of alcohol abuse. He reports that he used to be a very heavy drinker but recently has been consuming 3-8 beers per day. He states that he has not consumed alcohol within the last 3 weeks. The patient was seen and examined at the bedside. He states he is having severe abdominal pain at this time. He denies nausea or vomiting currently. Denies chest pain or shortness of breath. Denies constipation or diarrhea. His vital signs have remained stable. He is afebrile. He denies additional concerns at this time. 04/16/2017: The patient continues to experience pain. Overnight he had urinary retention, requiring a straight cath 2. The third time a Mendieta catheter was placed. He continues to complain of epigastric abdominal pain. Nursing reports that he receives Dilaudid and then falls asleep.their consultation was reviewed.he remains nothing by mouth. He denies a bowel movement. He denies any chest pains, pressures, shortness of breath. 04/17/2017: Patient is pain is improved. He continues on Dilaudid as needed. He remains on the CEWA protocol. His white count was elevated. Respiratory therapy indicate a 90% pulse oximetry on 2 L O2 this morning. He continues to have Mendieta catheter. I'm unable to locate a urinalysis. He is complaining of some coughing as well today. He denies any chest pains, pressures, or significant shortness of breath. He does have pain with motion in the midepigastrium. He is tolerating ice chips. Objective - Vital Signs Vital signs: Vital Signs Temp 98.0 F 04/17/17 07:00 Pulse 128 H 04/17/17 07:00 Resp 18 04/17/17 07:00 BP 165/89 04/17/17 07:00 Pulse Ox 90 L 04/17/17 07:35 Intake & Output 04/16/17 04/17/17 04/17/17 18:59 06:59 18:59 Intake Total 1500 0 Output Total 800 2050 500 Balance 700 -2050 -500 Weight 54.431 kg Intake: Intake, IV Titration 1500 Amount Sodium Chloride 0.9% 1, 1500 000 ml @ 125 mls/hr IV . Q8H [facility] Rx#:[id number] Oral 0 Output: Urine 800 2050 500 Uretheral (Mendieta) 600 Other: Voiding Method Indwelling Catheter Indwelling Catheter Indwelling Catheter - Exam General: The patient is awake and alert, in distress from pain, with any sort of motion. He is thin and looks his stated age, he does seem improved from 1 day ago Neck: The neck is supple, there is no thyromegaly, lymphadenopathy, tenderness or JVD. Cardiovascular: S1S2 is normal, There is a regular rate and rhythm. No murmur, rub or gallop is appreciated. Respiratory: Lungs are more coarse to auscultation bilaterally, respirations are non-labored, breath sounds are equal. Gastrointestinal: Soft, non-distended, without masses or organomegaly noted. There is no rebound or guarding present. Bowel sounds are decreased. There is pain to palpation of the mid epigastrium. Musculoskeletal: Normal ROM, no tenderness, There is no pedal edema. There is no calf tenderness or swelling. No cords were appreciated. Neurological: CN II-XII intact, there are no obvious motor or sensory deficits. Coordination appears grossly intact. Speech is normal. Skin: Skin is warm and dry and no rashes or lesions are noted. - Labs CBC & Chem 7: 04/17/17 07:15 04/17/17 07:15 Labs: Abnormal Lab Results - Last 24 Hours (Table) 04/17/17 04/17/17 Range/Units 07:15 07:15 WBC 22.9 H (3.8-10.6) k/uL Hgb 9.9 L (13.0-17.5) gm/dL Hct 34.8 L (39.0-53.0) % MCV 77.1 L (80.0-100.0) fL MCH 21.9 L (25.0-35.0) pg MCHC 28.4 L (31.0-37.0) g/dL RDW 16.7 H (11.5-15.5) % Plt Count 529 H (150-450) k/uL Neutrophils # 21.5 H (1.3-7.7) k/uL Lymphocytes # 0.3 L (1.0-4.8) k/uL Chloride 109 H (98-107) mmol/L Amylase 251 H (30-110) U/L Lipase 902 H (23-300) U/L Assessment and Plan (1) Leukocytosis Current Visit: Yes Status: Acute Code(s): D72.829 - ELEVATED WHITE BLOOD CELL COUNT, UNSPECIFIED SNOMED Code(s): 724642524 (2) Microcytic anemia Current Visit: Yes Status: Acute Code(s): D50.9 - IRON DEFICIENCY ANEMIA, UNSPECIFIED SNOMED Code(s): 120770553 (3) Acute pancreatitis Current Visit: Yes Status: Acute Code(s): K85.90 - ACUTE PANCREATITIS WITHOUT NECROSIS OR INFECTION, UNSP SNOMED Code(s): 739892182 (4) H/O ETOH abuse Current Visit: Yes Status: Acute Code(s): Z87.898 - PERSONAL HISTORY OF OTHER SPECIFIED CONDITIONS SNOMED Code(s): 552833860 (5) Pancreatic pseudocyst Current Visit: Yes Status: Acute Code(s): K86.3 - PSEUDOCYST OF PANCREAS SNOMED Code(s): 884860187 Plan: acute pancreatitis with pancreatic cyst possible ascites:gastroneurology is following. Amylase and lipase are improved. He remains nothing by mouth except ice chips and IV fluids. GI consult reviewed. Continue medications for pain, History of alcohol abuse: Continue on CEWA protocol SIRS: I'll add Zosyn, consult infectious diseases, UA, CXR, blood cultures 2 to eval for sourse other than Pancreas Urinary retention: Mendieta catheter remains in place, no UA was found, I'll reorder it now. Episodic hypoxia:as above Microcytic anemia: We'll monitor, when not nothing by mouth Will add iron supplements. Thrombocytosis: Most likely reactive, we'll follow hypertension: Continue amlodipine and lisinopril GERD: He will continue on Protonix. Tobaccoism: We'll monitor. EtOH abuse: See above,continue CEWA protocol DVT prophylaxis: SCDs in place GI prophylaxis: He remains on Protonix Reevaluate him in the next 24 hours. Nursing will watch for uncontrolled pain. We'll obtain a lactic acid level to evaluate for sepsis
--- NOTE | 2017-04-17 12:07 | PN ---
PROGRESS NOTE DATE OF SERVICE: 04/17/17 Patient is a 71-year-old pleasant white male admitted to the hospital with chronic relapsing pancreatitis complicated with pseudocyst formation. He presents with epigastric pain, nausea, vomiting, noted to have elevated amylase and lipase consistent with acute pancreatitis. He is feeling a little bit better today. Still has epigastric pain. Remains n.p.o. Complains of dry mouth. No fever, chills, or night sweats. PHYSICAL EXAMINATION: He appears comfortable. VITAL SIGNS: Blood pressure 165/89, pulse rate 104, and temperature 98. HEENT examination unremarkable. Conjunctivae pink. Sclerae anicteric. Oral cavity no lesions. Neck no jugular venous distention or lymph node enlargement. Chest was clear to auscultation. HEART: Regular rate and rhythm. ABDOMEN: Soft. There was tenderness in the epigastric area. Bowel sounds are positive. No organomegaly. Extremities: No pedal edema. Skin no rashes. NEUROLOGIC: Alert and oriented x3. No focal deficits. LAB: From today, WBC 22.9, hemoglobin 9.9, platelets of 529. Amylase is down to 251 and lipase is 902. IMPRESSION: 1. Chronic relapsing pancreatitis complicated with pseudocyst formation. The patient still continues to have epigastric discomfort, but gradually improving. Amylase and lipase are gradually improving. Presently remains n.p.o. 2. Leukocytosis with increased neutrophils, rule out ongoing infection. RECOMMENDATIONS: 1. ID consultation to address leukocytosis. 2. Keep him n.p.o. for now except ice chips. 3. Continue with pain medications as needed. 4. Repeat labs in the morning and will follow him closely during his hospital stay. MMODL / IJN: [id number] /
--- NOTE | 2017-04-17 13:02 | XR ---
EXAMINATION TYPE: XR chest 2V DATE OF EXAM: 04/17/2017 HISTORY: hypoxia. REFERENCE: Previous study dated 04/15/2017. FINDINGS: There are postsurgical changes within the thoracic spine. There is worsening bibasilar airspace disease. The heart is obscured. Pleural spaces appear clear. Th ere is an accentuated thoracic kyphosis. There are degenerative changes in the thoracic spine. IMPRESSION: WORSENING BIBASILAR AIRSPACE DISEASE.
[2017-04-17] MEDS: PIPERACILLIN-TAZOBACTAM 3.375 GM in DEXTROSE/WATER 1 50ML.BAG IVPB SCH ×2 (13:23→21:41)
[2017-04-17 14:09] LABS: Appearance,Urine Clear (Clear); Bacteria,Urine Rare /hpf; Bilirubin,Urine Negative (Negative); Blood,Urine Moderate (Negative); Color,Urine Yellow; Glucose,Urine (UA) Negative (Negative); Ketones,Urine 1+ (Negative); Leukocyte Esterase,Urine Small (Negative); Mucus,Urine Rare /hpf; Nitrite,Urine Negative (Negative); Protein,Urine 1+ (Negative); RBC,Urine 81 /hpf (0-5); Specific Gravity,Urine 1.013 (1.001-1.035); Urobilinogen,Urine <2.0 mg/dL (<2.0); WBC,Urine 13 /hpf (0-5)
[2017-04-17] MEDS: HYDROmorphone 0.5 MG/0.5 ML SYRINGE IVP PRN (21:39)
[2017-04-17] MEDS: MELATONIN 5 MG TABLET PO SCH (21:40)
[2017-04-18] MEDS: HYDROmorphone 2 MG/ML 1 ML SYRINGE IVP PRN ×6 (01:15→22:04)
[2017-04-18] MEDS: PIPERACILLIN-TAZOBACTAM 3.375 GM in DEXTROSE/WATER 1 50ML.BAG IVPB SCH ×3 (05:16→22:04)
[2017-04-18] MEDS: SODIUM CHLORIDE 0.9% 1,000 ML IV SCH ×3 (05:16→22:05)
[2017-04-18 08:22] LABS: HCT 32.5 % (39.0-53.0); HGB 9.5 gm/dL (13.0-17.5); Hypochromasia Marked; MCH 22.7 pg (25.0-35.0); MCHC 29.2 g/dL (31.0-37.0); MCV 77.7 fL (80.0-100.0); Mean Platelet Volume 7.3; Platelet Count 507 k/uL (150-450); Poikilocytosis Slight; RBC 4.18 m/uL (4.30-5.90); RDW 15.1 % (11.5-15.5); WBC 23.4 k/uL (3.8-10.6)
[2017-04-18 08:49] LABS: ALT 27 U/L (21-72); AST 26 U/L (17-59); Albumin 2.2 g/dL (3.5-5.0); Alkaline Phosphatase 92 U/L (38-126); Amylase 233 U/L (30-110); Anion Gap 14 mmol/L; Blood Urea Nitrogen 19 mg/dL (9-20); Calcium 8.2 mg/dL (8.4-10.2); Carbon Dioxide 22 mmol/L (22-30); Chloride 111 mmol/L (98-107); Glucose 88 mg/dL (74-99); Lipase 752 U/L (23-300); Magnesium 2.2 mg/dL (1.6-2.3); Potassium 3.5 mmol/L (3.5-5.1); Sodium 147 mmol/L (137-145); Total Bilirubin 0.3 mg/dL (0.2-1.3); Total Protein 4.8 g/dL (6.3-8.2)
[2017-04-18 09:02] LABS: Band Neutrophils % 27 %; Lymphocytes # (M) 0.47 k/uL (1.0-4.8); Neutrophils % (M) 68 %; Nucleated Red Blood Cells 0 /100 WBC (0-0); Total Cells Counted 200
[2017-04-18 09:03] LABS: Anisocytosis (M) Present; Target Cells Present
[2017-04-18 09:04] LABS: Toxic Granulation Present
[2017-04-18] MEDS: ONDANSETRON 4 MG/2 ML VIAL IVP PRN (09:17)
[2017-04-18] MEDS: amLODIPine 5 MG TAB PO SCH ×2 (09:17→22:05)
[2017-04-18] MEDS: PANTOPRAZOLE 40 MG/10 ML VIAL IVP SCH (09:17)
[2017-04-18] MEDS: LISINOPRIL 20 MG TAB PO SCH (09:17)
[2017-04-18 11:26] LABS: IgG Subclass 3 26.5 mg/dL (11.0-85.0)
[2017-04-18 11:31] LABS: IgG Subclass 4 57.4 mg/dL (3.0-175.0)
[2017-04-18] MEDS: THIAMINE 100 MG TAB PO SCH ×2 (12:06→18:09)
--- NOTE | 2017-04-18 12:48 | P.CONS ---
History of Present Illness - Reason for Consult Consult date: 04/18/17 SIRS or sepsis - History of Present Illness This is a 71-year-old male patient who presented by ambulance on April 15 to [facility] emergency center with severe abdominal pain with nausea without vomiting and decreased oral intake. He was also tachycardic with sweats. Patient was found to be afebrile, tachycardic with leukocytosis of 20.8 now at 23.4. Amylase initially 451 and now 251. Lipase initially 3281 and repeat 902. Urinalysis was clear, blood moderate, leukoesterase small, RBCs 81, WBC 13, bacteria rare. Urine culture is in progress. Blood cultures status received. Chest x-ray showed increasing linear bibasilar subsegmental atelectasis. KUB showed nonobstructing pattern. CAT scan of the abdomen and pelvis with contrast revealed pancreatitis with probable pseudocyst. Ascites. Repeat chest x-ray on April 17 showed worsening bibasilar airspace disease. Patient is complaining of nausea and significant abdominal pain. He is currently on nothing by mouth status with ice chips and meds only. Patient had urinary retention and Mendieta catheter has been placed. Patient is not had a bowel movement since arrival and he feels constipated. He is complaining of mostly neck and pain to the left mid abdomen. Patient has been unable to participate with physical therapy due to pain. He has had a previous episode of pancreatitis in February 2017 and EGD was done for evaluation of possible neoplastic lesion in the esophagus per CAT scan results. EGD showed mild antral gastritis with no evidence of ulcers or gastric outlet obstruction. No evidence of neoplastic process. He also underwent MRCP that showed normal appearance of the common bile duct and intrahepatic ducts. 710 center cystic mass appeared and pancreatic region. Additional satellite areas of cystic changes in the periportal region near the pancreatic tail. CA 199 was 11.8. Patient does have history of alcohol abuse drinking 6-7 beers daily and quit a month ago. Patient did require oxygen over the weekend for pulse ox of 86% on room air. Review of Systems All systems: negative Constitutional: Reports fatigue, Reports poor appetite, Denies chills, Denies fever Eyes: denies blurred vision, denies pain Ears, nose, mouth and throat: Denies headache, Denies sore throat Cardiovascular: Denies chest pain, Denies shortness of breath Respiratory: Denies cough, Denies cough with sputum, Denies dyspnea Gastrointestinal: Reports abdominal pain, Reports bloating, Reports nausea, Denies diarrhea, Denies vomiting Musculoskeletal: Denies myalgias Integumentary: Denies pruritus, Denies rash Neurological: Denies numbness, Denies weakness Psychiatric: Denies anxiety, Denies depression Endocrine: Denies fatigue, Denies weight change Past Medical History Past Medical History: Blood Disorder, GERD/Reflux, Hypertension Additional Past Medical History / Comment(s): HX of Stomach ulcer., Anemia, Constipation.DIVERTICULOSIS(PER COLONOSCOPY) History of Any Multi-Drug Resistant Organisms: None Reported Past Surgical History: Back Surgery, Tonsillectomy Additional Past Surgical History / Comment(s): laminectomy, DENTAL IMPLANTS, COLONOSCOPY. Left middle finger surgery. Past Anesthesia/Blood Transfusion Reactions: No Reported Reaction Past Psychological History: No Psychological Hx Reported Smoking Status: Current every day smoker Additional Past Alcohol Use History / Comment(s): Patient smoked a pipe for greater than 50 years and quit in February 2017. Patient's in 2015. He states he lives with his mother who is 93 years of age. He is worked in the past most recently at the [employer] and is retired. - Past Family History Father Family Medical History: Cancer Additional Family Medical History / Comment(s): . Mother Family Medical History: GI Bleed Additional Family Medical History / Comment(s): MOTHER IS 93 YRS OLD. Medications and Allergies Home Medications Medication Instructions Recorded Confirmed Type amLODIPine [Norvasc] 5 mg PO BID 08/05/15 04/15/17 History Moexipril HCl [Univasc] 15 mg PO BID 08/06/15 04/15/17 History Bisacodyl [Dulcolax] 5 mg PO DAILY PRN 12/28/16 04/15/17 History Melatonin 10 mg PO HS 02/08/17 04/15/17 History Pantoprazole [Protonix] 40 mg PO DAILY #30 tablet. 02/09/17 04/15/17 Rx Acetaminophen Tab [Tylenol Tab] 650 mg PO Q4H PRN 04/15/17 04/15/17 History Allergies Allergy/AdvReac Type Severity Reaction Status Date / Time No Known Allergies Allergy Verified 04/15/17 08:44 Physical Exam Vitals: Vital Signs Temp Pulse Resp BP Pulse Ox 04/18/17 07:00 96.7 F L 118 H 20 130/73 92 L 04/17/17 23:00 96.3 F L 121 H 32 H 127/76 93 L 04/17/17 21:47 129 H 156/78 04/17/17 15:00 96.9 F L 117 H 18 139/84 94 L Intake and Output 04/17/17 04/18/17 04/18/17 22:59 06:59 14:59 Output Total 400 350 Balance -400 -350 Output: Urine 400 350 Other: Voiding Method Indwelling Catheter Gen: This is a thin 71-year-old male patient. He is in bed and appears to be somewhat uncomfortable. HEENT: Head is atraumatic, normocephalic. Pupils equal, round. Sclerae is anicteric. NECK: Supple. No JVD. No lymphadenopathy. No thyromegaly. LUNGS: Clear to auscultation. No wheezes or rhonchi. No intercostal retractions. HEART: Regular rate and rhythm. No murmur. Tachycardic. ABDOMEN: Soft. Bowel sounds are present. No masses. Significant generalized tenderness. Patient points to the left mid abdomen is most painful but is tender to light touch all over his abdomen. EXTREMITIES: No pedal edema. No calf tenderness. NEUROLOGICAL: Patient is awake, alert and oriented x2-3. Cranial nerves 2 through 12 are grossly intact. Results Results: Laboratory Results WBC 23.4 k/uL (3.8-10.6) H 04/18/17 07:37 RBC 4.18 m/uL (4.30-5.90) L 04/18/17 07:37 Hgb 9.5 gm/dL (13.0-17.5) L 04/18/17 07:37 Hct 32.5 % (39.0-53.0) L 04/18/17 07:37 MCV 77.7 fL (80.0-100.0) L 04/18/17 07:37 MCH 22.7 pg (25.0-35.0) L 04/18/17 07:37 MCHC 29.2 g/dL (31.0-37.0) L 04/18/17 07:37 RDW 15.1 % (11.5-15.5) 04/18/17 07:37 Plt Count 507 k/uL (150-450) H 04/18/17 07:37 Neutrophils % 94 % 04/17/17 07:15 Neutrophils % (Manual) 68 % 04/18/17 07:37 Band Neutrophils % 27 % 04/18/17 07:37 Lymphocytes % 1 % 04/17/17 07:15 Lymphocytes % (Manual) 2 % 04/18/17 07:37 Monocytes % 4 % 04/17/17 07:15 Monocytes % (Manual) 3 % 04/18/17 07:37 Eosinophils % 0 % 04/17/17 07:15 Basophils % 0 % 04/17/17 07:15 Neutrophils # 21.5 k/uL (1.3-7.7) H 04/17/17 07:15 Neutrophils # (Manual) 22.20 k/uL (1.3-7.7) H 04/18/17 07:37 Lymphocytes # 0.3 k/uL (1.0-4.8) L 04/17/17 07:15 Lymphocytes # (Manual) 0.47 k/uL (1.0-4.8) L 04/18/17 07:37 Monocytes # 1.0 k/uL (0-1.0) 04/17/17 07:15 Monocytes # (Manual) 0.70 k/uL (0-1.0) 04/18/17 07:37 Eosinophils # 0.0 k/uL (0-0.7) 04/17/17 07:15 Basophils # 0.1 k/uL (0-0.2) 04/17/17 07:15 Nucleated RBCs 0 /100 WBC (0-0) 04/18/17 07:37 Manual Slide Review Performed 04/17/17 07:15 Toxic Granulation Present 04/18/17 07:37 Hypochromasia Marked 04/18/17 07:37 Poikilocytosis Slight 04/18/17 07:37 Poikilocytosis (manual Present 04/17/17 07:15 Anisocytosis Slight 04/17/17 07:15 Anisocytosis (manual) Present 04/18/17 07:37 Microcytosis Slight 04/17/17 07:15 Target Cells Present 04/18/17 07:37 PT 10.7 sec (9.0-12.0) 04/15/17 06:51 INR 1.1 (<1.2) 04/15/17 06:51 APTT 21.7 sec (22.0-30.0) L 04/15/17 06:51 Sodium 147 mmol/L (137-145) H 04/18/17 07:37 Potassium 3.5 mmol/L (3.5-5.1) 04/18/17 07:37 Chloride 111 mmol/L (98-107) H 04/18/17 07:37 Carbon Dioxide 22 mmol/L (22-30) 04/18/17 07:37 Anion Gap 14 mmol/L 04/18/17 07:37 BUN 19 mg/dL (9-20) 04/18/17 07:37 Creatinine 0.85 mg/dL (0.66-1.25) 04/18/17 07:37 Est GFR (MDRD) Af Amer >60 (>60 ml/min/1.73 sqM) 04/18/17 07:37 Est GFR (MDRD) Non-Af >60 (>60 ml/min/1.73 sqM) 04/18/17 07:37 Glucose 88 mg/dL (74-99) 04/18/17 07:37 POC Glucose (mg/dL) 152 mg/dL (75-99) H 04/16/17 08:07 POC Glu Learning Analyst ID Starr Stewart 04/16/17 08:07 Plasma Lactic Acid Paras 1.2 mmol/L (0.7-2.0) 04/17/17 11:57 Calcium 8.2 mg/dL (8.4-10.2) L 04/18/17 07:37 Magnesium 2.2 mg/dL (1.6-2.3) 04/18/17 07:37 Total Bilirubin 0.3 mg/dL (0.2-1.3) 04/18/17 07:37 AST 26 U/L (17-59) 04/18/17 07:37 ALT 27 U/L (21-72) 04/18/17 07:37 Alkaline Phosphatase 92 U/L (38-126) 04/18/17 07:37 Total Creatine Kinase <20 U/L (55-170) L 04/15/17 06:51 CK-MB (CK-2) <0.2 ng/mL (0.0-2.4) 04/15/17 06:51 CK-MB (CK-2) Rel Index 04/15/17 06:51 Troponin I <0.012 ng/mL (0.000-0.034) 04/15/17 06:51 Total Protein 4.8 g/dL (6.3-8.2) L 04/18/17 07:37 Albumin 2.2 g/dL (3.5-5.0) L 04/18/17 07:37 Triglycerides 79 mg/dL (<150) 04/15/17 06:51 Amylase 233 U/L (30-110) H 04/18/17 07:37 Lipase 752 U/L (23-300) H 04/18/17 07:37 CA 19-9 Antigen 8.2 U/mL (0.0-34.9) 04/15/17 06:51 Urine Color Yellow 04/17/17 13:15 Urine Appearance Clear (Clear) 04/17/17 13:15 Urine pH 6.0 (5.0-8.0) 04/17/17 13:15 Ur Specific [place] 1.013 (1.001-1.035) 04/17/17 13:15 Urine Protein 1+ (Negative) H 04/17/17 13:15 Urine Glucose (UA) Negative (Negative) 04/17/17 13:15 Urine Ketones 1+ (Negative) H 04/17/17 13:15 Urine Blood Moderate (Negative) H 04/17/17 13:15 Urine Nitrite Negative (Negative) 04/17/17 13:15 Urine Bilirubin Negative (Negative) 04/17/17 13:15 Urine Urobilinogen <2.0 mg/dL (<2.0) 04/17/17 13:15 Ur Leukocyte Esterase Small (Negative) H 04/17/17 13:15 Urine RBC 81 /hpf (0-5) H 04/17/17 13:15 Urine WBC 13 /hpf (0-5) H 04/17/17 13:15 Urine Bacteria Rare /hpf (None) H 04/17/17 13:15 Urine Mucus Rare /hpf (None) H 04/17/17 13:15 IgG1 492.0 mg/dL (405.0-1011.0) 04/16/17 08:21 IgG2 279.0 mg/dL (169.0-640.0) 04/16/17 08:21 IgG3 26.5 mg/dL (11.0-85.0) 04/16/17 08:21 IgG4 57.4 mg/dL (3.0-175.0) 04/16/17 08:21 JACKSON Screen NEGATIVE (NEGATIVE) 04/16/17 08:21 CBC & Chem 7: 04/18/17 07:37 04/18/17 07:37 Labs: Abnormal Lab Results - Last 24 Hours (Table) 04/17/17 04/18/17 04/18/17 Range/Units 13:15 07:37 07:37 WBC 23.4 H (3.8-10.6) k/uL RBC 4.18 L (4.30-5.90) m/uL Hgb 9.5 L (13.0-17.5) gm/dL Hct 32.5 L (39.0-53.0) % MCV 77.7 L (80.0-100.0) fL MCH 22.7 L (25.0-35.0) pg MCHC 29.2 L (31.0-37.0) g/dL Plt Count 507 H (150-450) k/uL Neutrophils # (Manual) 22.20 H (1.3-7.7) k/uL Lymphocytes # (Manual) 0.47 L (1.0-4.8) k/uL Sodium 147 H (137-145) mmol/L Chloride 111 H (98-107) mmol/L Calcium 8.2 L (8.4-10.2) mg/dL Total Protein 4.8 L (6.3-8.2) g/dL Albumin 2.2 L (3.5-5.0) g/dL Amylase 233 H (30-110) U/L Lipase 752 H (23-300) U/L Urine Protein 1+ H (Negative) Urine Ketones 1+ H (Negative) Urine Blood Moderate H (Negative) Ur Leukocyte Esterase Small H (Negative) Urine RBC 81 H (0-5) /hpf Urine WBC 13 H (0-5) /hpf Urine Bacteria Rare H (None) /hpf Urine Mucus Rare H (None) /hpf Microbiology - Last 24 Hours (Table) 04/17/17 13:15 Urine Culture - Final Urine,Catheterized Assessment and Plan Plan: This is a 71-year-old male patient who presented to Hospital with acute pancreatitis as well as SIRS with leukocytosis, tachycardia but without fever. Over the weekend, patient developed acute hypoxic respiratory failure requiring oxygen and repeat chest x-ray shows worsening bibasilar airspace disease. Also complicating his course his urinary retention requiring Mendieta catheter. Recommend continuing Zosyn expect the patient to improve slowly from pancreatitis Blood cultures status received and urine culture is in progress. Incentive spirometry added. Continue supportive care. Further recommendations as patient progresses. The above dictated assessment and findings were discussed with Dr. Wiley. The impression and plan of care have been directed as dictated. Joanne Aguiar nurse practitioner acting as scribe for Dr. Wiley.
[2017-04-18] MEDS ORDERED: BISACODYL 10 MG SUPP RECTAL STA (13:47)
--- NOTE | 2017-04-18 14:01 | P.PN ---
<Any Reis Urban - Last Filed: 04/18/17 14:56> Subjective Progress Note Date: 04/18/17 71-year-old male who presented to the emergency room on 04/15/2017 with a chief complaint of generalized abdominal pain x 1 day. The patient also had complaints of nausea but denies emesis. Reports decreased oral intake secondary to abdominal pain. He denied chest pain or pressure. Denies shortness of breath. No constipation or diarrhea. In the emergency room, chest x-ray was completed revealing bibasilar subsegmental dependent atelectasis. KUB x-ray was completed revealing nonobstructive bowel gas pattern. A computed tomography scan of the abdomen and pelvis was completed revealing findings consistent with pancreatitis and probable pseudocyst and ascites. Laboratory studies revealed white count of 11 , hemoglobin 10.9, platelet count 588, INR 1.1, sodium 140, potassium 3.9, BUN 11, creatinine 0.85, lactic acid 1.9, AST 11, ALC 19, troponin negative 1, triglycerides 79, amylase 654, and lipase 3977. He was admitted to the hospital under the care of Dr. Mitchell. Consultations were placed to gastroenterology. The patient had a previous admission from 02/08/2017 until 02/11/2017 secondary to acute pancreatitis and pneumonia. During that hospitalization, the patient underwent a computed tomography scan that Moderate wall thickening of the distal esophagus was seen with a possible moderately sized hiatal hernia. Edema and fluid tracking along the upper abdominal retroperitoneum, anterior margin of the pancreas, and in the gastrohepatic ligament region in which pancreatitis could not be excluded. Additionally there was poor delineation between the fluid in the posterior gastric fundus and which peptic ulcer disease could not be excluded. There were also scattered pulmonary nodules seen measuring up to 6 mm. Lastly there was a 1.2 cm hypoechoic lesion in the pancreatic tail noted. He underwent an EGD which revealed small hiatal hernia, no evidence of esophagitis or complicated reflux, and mild antral gastritis. Abnormalities that were found on the computed tomography scan were not substantiated during EGD. 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 The patient underwent an outpatient MRCP on 03/03/2017 which revealed normal- appearing common bile duct, 7-10 cm cystic mass in the pancreatic region, and additional satellite areas of cystic changes in the periportal region and near the pancreatic tail, right renal marked atrophy with compensatory hypertrophy of left kidney, stable 1.5 cm left adrenal mass unchanged from 2010, and small bilateral pleural effusions. The patient also underwent an outpatient computed tomography scan of the abdomen on 03/21/2017 which revealed findings suggestive of moderate acute on chronic pancreatitis with several pseudocyst or lobulated larger pseudocyst suspected, acute peripancreatitis fluid collection, significant mass effect on distal esophagus which shows severe wall thickening. In addition to the patient's history of pancreatitis and pneumonia, he also has a history of gastroesophageal reflux disease, hypertension, diverticulosis, laminectomy. He states that he is a former cigarette smoker and quit smoking cigarettes in 2001 and he has been smoking a pipe since that time. The patient has a history of alcohol abuse. He reports that he used to be a very heavy drinker but recently has been consuming 3-8 beers per day. He states that he has not consumed alcohol within the last 3 weeks. 04/15/2017 The patient was seen and examined at the bedside by Dr. Mitchell. He states he is having severe abdominal pain at this time. He denies nausea or vomiting currently. Denies chest pain or shortness of breath. Denies constipation or diarrhea. His vital signs have remained stable. He is afebrile. He denies additional concerns at this time. 04/16/2017-Notes per Dr. Mitchell The patient continues to experience pain. Overnight he had urinary retention, requiring a straight cath 2. The third time a Mendieta catheter was placed. He continues to complain of epigastric abdominal pain. Nursing reports that he receives Dilaudid and then falls asleep.their consultation was reviewed.he remains nothing by mouth. He denies a bowel movement. He denies any chest pains, pressures, shortness of breath. 04/17/2017-Notes per Dr. Mitchell Patient is pain is improved. He continues on Dilaudid as needed. He remains on the CEWA protocol. His white count was elevated. Respiratory therapy indicate a 90% pulse oximetry on 2 L O2 this morning. He continues to have Mendieta catheter. I'm unable to locate a urinalysis. He is complaining of some coughing as well today. He denies any chest pains, pressures, or significant shortness of breath. He does have pain with motion in the midepigastrium. He is tolerating ice chips. 04/18/2017 Patient seen and examined at the bedside. Nursing staff that the patient recently received Ativan for a CIWA score of 10 and states the patient was very anxious, diaphoretic, and very restless/fidgety. Chest xray was completed on revealing worsening bibasilar airspace disease. He remains on 2 L nasal cannula with oxygen saturations around 92%. Urinalysis completed yesterday reveals 1+ protein, 1+ ketones, moderate blood, small leukocyte esterase, RBC of 81, WBC of 13, rare bacteria and rare mucus. Urine culture is negative at the 18 hour murphy. Blood cultures were completed on 04/17/2017 and results are currently pending. Infectious disease has been consulted for further evaluation. He was started on Zosyn. His white count has increased to 23.4 from 22.9. Objective - Vital Signs Vital signs: Vital Signs Temp 96.7 F L 04/18/17 07:00 Pulse 118 H 04/18/17 07:00 Resp 20 04/18/17 07:00 BP 130/73 04/18/17 07:00 Pulse Ox 92 L 04/18/17 07:00 Intake & Output 04/17/17 04/18/17 04/18/17 18:59 06:59 18:59 Intake Total 50 Output Total 750 500 Balance -700 -500 Intake: Intake, IV Titration 50 Amount Piperacillin-Tazobactam 3 50 .375 gm In Dextrose/Water 1 50ml.bag @ 12.5 mls/hr IVPB Q8H [facility] Rx#: [id number] Output: Urine 750 500 Other: Voiding Method Indwelling Catheter Indwelling Catheter - Exam GENERAL: This is a 71-year-old male who appears uncomfortable and in pain and had examination. HEENT: Head is atraumatic, normocephalic. Pupils are equal, round, and reactive to light. Sclerae anicteric. Conjunctivae are clear. Mucus membranes of the mouth are moist. Neck is supple. RESPIRATORY: Clear to ausculation. No wheezes, rales, or rhonchi. No use of accessory muscles. Patient maintaining oxygen saturation greater than 92% on 2 L nasal cannula. No chest wall tenderness is noted on palpation or with deep breathing. CARDIOVASCULAR: Tachycardic. Regular rate and rhythm. S1 and S2 noted. No systolic or diastolic murmur auscultated. No JVD noted. No S3 or S4 noted. GASTROINTESTINAL: Abdomen appears nondistended but is more firm than previous examinations. Hypoactive bowel sounds auscultated x 4 quadrants. Pain and tenderness noted upon palpation of all 4 quadrants. INTEGUMENTARY: No cyanosis. No jaundice. No rashes noted. No cellulitis noted. EXTREMITIES: 2+ peripheral pulses. No evidence of peripheral edema. No calf tenderness noted. NEUROLOGIC: Cranial nerves II-XII intact. PSYCHIATRIC: Awake, alert, and oriented X 3. Appropriate affect. Intact judgement and insight. - Labs CBC & Chem 7: 04/18/17 07:37 04/18/17 07:37 Labs: Abnormal Lab Results - Last 24 Hours (Table) 04/17/17 04/18/17 04/18/17 Range/Units 13:15 07:37 07:37 WBC 23.4 H (3.8-10.6) k/uL RBC 4.18 L (4.30-5.90) m/uL Hgb 9.5 L (13.0-17.5) gm/dL Hct 32.5 L (39.0-53.0) % MCV 77.7 L (80.0-100.0) fL MCH 22.7 L (25.0-35.0) pg MCHC 29.2 L (31.0-37.0) g/dL Plt Count 507 H (150-450) k/uL Neutrophils # (Manual) 22.20 H (1.3-7.7) k/uL Lymphocytes # (Manual) 0.47 L (1.0-4.8) k/uL Sodium 147 H (137-145) mmol/L Chloride 111 H (98-107) mmol/L Calcium 8.2 L (8.4-10.2) mg/dL Total Protein 4.8 L (6.3-8.2) g/dL Albumin 2.2 L (3.5-5.0) g/dL Amylase 233 H (30-110) U/L Lipase 752 H (23-300) U/L Urine Protein 1+ H (Negative) Urine Ketones 1+ H (Negative) Urine Blood Moderate H (Negative) Ur Leukocyte Esterase Small H (Negative) Urine RBC 81 H (0-5) /hpf Urine WBC 13 H (0-5) /hpf Urine Bacteria Rare H (None) /hpf Urine Mucus Rare H (None) /hpf Microbiology - Last 24 Hours (Table) 04/17/17 13:15 Urine Culture - Final Urine,Catheterized Assessment and Plan Plan: ASSESSMENT: Acute pancreatitis and pancreatic pseudocyst, patient denies alcohol use, etiology uncertain at this time Abdominal pain, present on admission, secondary to pancreatitis Leukocytosis, underlying infectious process cannot be ruled out at this time Recent hospital admission in February 2017 secondary to acute pancreatitis and pneumonia Urinary retention requiring insertion of indwelling urinary catheter Microcytic hypochromic anemia Gastroesophageal reflux disease Essential hypertension Nicotine dependence, patient is a former cigarette smoker and current tobacco pipe smoker History of alcohol abuse, patient reports drinking 3-8 beers a day but states he quit 3 weeks ago PLAN: -GI on consult. Appreciate recommendations and input -Infectious disease on consult. Appreciate recommendations and input -Antibiotic regimen per ID. Currently on Zosyn -Wean oxygen as tolerated to maintain oxygen saturations greater than 92% -Assess for possible home oxygen -Incentive spirometer 10 times an hour while awake -Continue CIWA scale per protocol -Pain control: Dilaudid 1 mg every 3 hours -Dulcolax rectal suppository x 1 -Maintain NPO except for ice chips and medications. When nausea subsides, patient may begin clear liquids -Continue IV fluid while NPO -PT/OT consult -Increase activity -Initiate cardiac telemetry monitoring secondary to tachycardia and ativan administration -Continue indwelling urinary catheter. Possible voiding trial tomorrow. -Home meds as appropriate -Monitor labs. Repeat in a.m. -GI prophylaxis: Protonix 40 mg IV daily -DVT prophylaxis: Venodyne's to bilateral lower extremities -Monitor vital signs and address as appropriate -Discharge planning: Patient to return home with home care -Further recommendations pending patient's course Nurse practitioner note has been reviewed by physician. Signing provider agrees with the documented findings, assessment, and plan of care. <Tc Steinberg Jr - Last Filed: 04/18/17 16:30> Objective - Vital Signs Vital signs: Vital Signs Temp 97.0 F L 04/18/17 15:00 Pulse 113 H 04/18/17 15:00 Resp 20 04/18/17 15:00 BP 129/76 04/18/17 15:00 Pulse Ox 90 L 04/18/17 15:00 Intake & Output 04/17/17 04/18/17 04/18/17 18:59 06:59 18:59 Intake Total 50 Output Total 750 500 300 Balance -700 -500 -300 Intake: Intake, IV Titration 50 Amount Piperacillin-Tazobactam 3 50 .375 gm In Dextrose/Water 1 50ml.bag @ 12.5 mls/hr IVPB Q8H [facility] Rx#: [id number] Output: Urine 750 500 300 Other: Voiding Method Indwelling Catheter Indwelling Catheter - Labs CBC & Chem 7: 04/18/17 07:37 04/18/17 07:37 Labs: Abnormal Lab Results - Last 24 Hours (Table) 04/18/17 04/18/17 Range/Units 07:37 07:37 WBC 23.4 H (3.8-10.6) k/uL RBC 4.18 L (4.30-5.90) m/uL Hgb 9.5 L (13.0-17.5) gm/dL Hct 32.5 L (39.0-53.0) % MCV 77.7 L (80.0-100.0) fL MCH 22.7 L (25.0-35.0) pg MCHC 29.2 L (31.0-37.0) g/dL Plt Count 507 H (150-450) k/uL Neutrophils # (Manual) 22.20 H (1.3-7.7) k/uL Lymphocytes # (Manual) 0.47 L (1.0-4.8) k/uL Sodium 147 H (137-145) mmol/L Chloride 111 H (98-107) mmol/L Calcium 8.2 L (8.4-10.2) mg/dL Total Protein 4.8 L (6.3-8.2) g/dL Albumin 2.2 L (3.5-5.0) g/dL Amylase 233 H (30-110) U/L Lipase 752 H (23-300) U/L Microbiology - Last 24 Hours (Table) 04/17/17 12:02 Blood Culture - Preliminary Blood No Growth after 24 hours 04/17/17 12:02 Blood Culture - Preliminary Blood No Growth after 24 hours 04/17/17 13:15 Urine Culture - Final Urine,Catheterized
[2017-04-18] MEDS ORDERED: BACLOFEN 10 MG TAB PO PRN (16:45)
--- NOTE | 2017-04-18 20:38 | P.CON ---
Consult Note - . Consult date: 04/18/17 Assessment/Plan:: This is a 71-year-old male patient who presented by ambulance on April 15 to [facility] emergency center with severe abdominal pain with nausea without vomiting and decreased oral intake. He was also tachycardic with sweats. Patient was found to be afebrile, tachycardic with leukocytosis of 20.8 now at 23.4. Amylase initially 451 and now 251. Lipase initially 3281 and repeat 902. Urinalysis was clear, blood moderate, leukoesterase small, RBCs 81, WBC 13, bacteria rare. Urine culture is in progress. Blood cultures status received. Chest x-ray showed increasing linear bibasilar subsegmental atelectasis. KUB showed nonobstructing pattern. CAT scan of the abdomen and pelvis with contrast revealed pancreatitis with probable pseudocyst. Ascites. Repeat chest x-ray on April 17 showed worsening bibasilar airspace disease. Patient is complaining of nausea and significant abdominal pain. He is currently on nothing by mouth status with ice chips and meds only. Patient had urinary retention and Mendieta catheter has been placed. Patient is not had a bowel movement since arrival and he feels constipated. He is complaining of mostly neck and pain to the left mid abdomen. Patient has been unable to participate with physical therapy due to pain. He has had a previous episode of pancreatitis in February 2017 and EGD was done for evaluation of possible neoplastic lesion in the esophagus per CAT scan results. EGD showed mild antral gastritis with no evidence of ulcers or gastric outlet obstruction. No evidence of neoplastic process. He also underwent MRCP that showed normal appearance of the common bile duct and intrahepatic ducts. 7-10 cm cystic mass appeared and pancreatic region. Additional satellite areas of cystic changes in the periportal region near the pancreatic tail. CA 199 was 11.8. Patient does have history of alcohol abuse drinking 6-7 beers daily and quit a month ago. Patient did require oxygen over the weekend for pulse ox of 86% on room air. Please see the consult note is dictated by nurse practitioner Joanne Aguiar. Is the patient developed this bout of significant pancreatitis which is not his first. He's having a significant leukocytosis which is a usual physiological response to this extensive organ inflammation. At this time no evidence of sepsis is occurring. Cultures are in process. Once negative and the next day the Zosyn can be discontinued at that time. Continue supportive care. cardroom worker involvement is helpful potential rehab. His prognosis overall though is poor. I agree with evaluation, assessment and plan is dictated by nurse practitioner Mrs. Joanne Aguiar.
--- NOTE | 2017-04-18 21:05 | PN ---
PROGRESS NOTE DATE OF SERVICE: April 18, 2017 Patient is a 71-year-old white male admitted to the hospital with chronic relapsing pancreatitis complicated by pseudocyst formation. He has been in the hospital 4 days, continues to have persistent epigastric pain, which was improving yesterday but today he has worsening symptoms. He denies any nausea, vomiting. The pain is mostly in the epigastric area. CT scan at the time of admission to the hospital showed multiple pseudocysts, largest measuring 10 cm in size. He was having persistent leukocytosis and hence ID has been consulted. He was evaluated by Dr. Wiley and patient started on Zosyn and workup is in progress. PHYSICAL EXAMINATION: He appears comfortable, in no apparent distress. VITAL SIGNS: Stable. Blood pressure is 129/76, pulse rate 113, temperature 97. HEENT examination unremarkable. Conjunctivae pink. Sclerae anicteric. Oral cavity no lesions. Neck: No jugular venous distention or lymph node enlargement. Chest was clear to auscultation. HEART: Regular rate and rhythm. ABDOMEN: Soft. It was slightly distended. There was more tenderness in the epigastric area. No rebound or rigidity. Extremities: No pedal edema. Skin no rashes. NEUROLOGIC: Alert and oriented x3. No focal deficits. LAB: WBC 23.4, hemoglobin 9.5, platelets 507. Amylase is down to 233 and lipase is 752. ALT, AST, alkaline phosphatase are normal. Urinalysis showed moderate amount of blood. Cultures are still pending. IMPRESSION: 1. Chronic relapsing pancreatitis complicated by pseudocyst formation. Patient with persistent epigastric discomfort despite amylase and lipase gradually improving. CT of the abdomen at the time of admission showed large multiple pseudocyst and ascites, largest measuring 10 cm in size. 2. Leukocytosis and tachycardia presently on broad spectrum antibiotic with Zosyn, and has been consulted. RECOMMENDATIONS: 1. Continue with broad-spectrum antibiotics. 2. Repeat labs in the morning. 3. If he continues to have persistent epigastric pain with worsening leukocytosis, we will plan on a repeat CT of the abdomen and pelvis tomorrow. Thank you for this consultation. MMODL / IJN: [id number] /
[2017-04-18] MEDS: METOPROLOL TARTRATE 12.5 MG TAB PO SCH (22:05)
[2017-04-18] MEDS: MELATONIN 5 MG TABLET PO SCH (22:05)
[2017-04-19] MEDS: HYDROmorphone 0.5 MG/0.5 ML SYRINGE IVP PRN ×2 (02:43→17:20)
[2017-04-19] MEDS: PIPERACILLIN-TAZOBACTAM 3.375 GM in DEXTROSE/WATER 1 50ML.BAG IVPB SCH ×3 (02:43→20:15)
[2017-04-19] MEDS: SODIUM CHLORIDE 0.9% 1,000 ML IV SCH (02:44)
[2017-04-19] MEDS: ONDANSETRON 4 MG/2 ML VIAL IVP PRN (06:15)
[2017-04-19 08:18] LABS: HCT 34.3 % (39.0-53.0); HGB 9.8 gm/dL (13.0-17.5); Hypochromasia Marked; MCH 22.5 pg (25.0-35.0); MCHC 28.6 g/dL (31.0-37.0); MCV 78.6 fL (80.0-100.0); Mean Platelet Volume 7.8; Platelet Count 515 k/uL (150-450); Poikilocytosis Slight; RBC 4.37 m/uL (4.30-5.90); RDW 15.5 % (11.5-15.5)
[2017-04-19 08:26] LABS: ALT 31 U/L (21-72); AST 32 U/L (17-59); Albumin 2.1 g/dL (3.5-5.0); Alkaline Phosphatase 130 U/L (38-126); Amylase 286 U/L (30-110); Anion Gap 18 mmol/L; Blood Urea Nitrogen 25 mg/dL (9-20); Calcium 8.2 mg/dL (8.4-10.2); Carbon Dioxide 19 mmol/L (22-30); Chloride 115 mmol/L (98-107); Glucose 106 mg/dL (74-99); Lipase 1963 U/L (23-300); Potassium 3.1 mmol/L (3.5-5.1); Sodium 152 mmol/L (137-145); Total Bilirubin 0.3 mg/dL (0.2-1.3); Total Protein 4.4 g/dL (6.3-8.2)
[2017-04-19] MEDS: HYDROmorphone 2 MG/ML 1 ML SYRINGE IVP PRN (09:06)
[2017-04-19] MEDS: LISINOPRIL 20 MG TAB PO SCH (09:08)
[2017-04-19] MEDS: amLODIPine 5 MG TAB PO SCH ×2 (09:08→23:43)
[2017-04-19] MEDS: METOPROLOL TARTRATE 12.5 MG TAB PO SCH ×2 (09:09→23:43)
[2017-04-19] MEDS: PANTOPRAZOLE 40 MG/10 ML VIAL IVP SCH (09:09)
[2017-04-19] MEDS ORDERED: Potassium Replacement Protocol 1 EACH MISC MISCELLANE PRN (09:16)
[2017-04-19] MEDS ORDERED: RX INFO: IV CONTRAST WAS GIVEN 1 EACH MISC MISCELLANE PRN (09:41)
[2017-04-19] MEDS ORDERED: BISACODYL 10 MG SUPP RECTAL STA (09:43)
[2017-04-19] MEDS ORDERED: SODIUM CHLORIDE 0.45% 1,000 ML IV SCH (09:45)
[2017-04-19] MEDS ORDERED: POTASSIUM CHLORIDE ER 20 MEQ TAB.ER PO SCH (10:00)
--- NOTE | 2017-04-19 10:06 | P.PN ---
Subjective Progress Note Date: 04/19/17 Principal diagnosis: Acute pancreatitis pseudocyst Biochemical enzymes worsening. Patient appears lethargic weak. Afebrile. White count 35,000. Hemoglobin 9.8. Platelet 515. CO2 19. Glucose 106. Sodium 152. Potassium 3.1. BUN 25. Amylase 286. Lipase 1963. Creatinine 0.8. Objective - Vital Signs Vital signs: Vital Signs Temp 96.7 F L 04/19/17 07:00 Pulse 114 H 04/19/17 07:00 Resp 16 04/19/17 07:00 BP 132/74 04/19/17 07:00 Pulse Ox 94 L 04/19/17 07:00 Intake & Output 04/18/17 04/19/17 04/19/17 18:59 06:59 18:59 Intake Total 175 Output Total 600 350 Balance -600 -175 Intake: Intake, IV Titration 175 Amount Piperacillin-Tazobactam 3 50 .375 gm In Dextrose/Water 1 50ml.bag @ 12.5 mls/hr IVPB Q8H BENJAMÍN Rx#: [id number] Sodium Chloride 0.9% 1, 125 000 ml @ 125 mls/hr IV . Q8H BENJAMÍN Rx#:[id number] Output: Urine 600 350 Other: Voiding Method Indwelling Catheter Indwelling Catheter - Exam General appearance: The patient is alert, appearance is weak, tired. HET: Head is normocephalic and atraumatic. Pupils are equal and reactive. Oropharynx is clear without lesions. Neck: Supple without lymphadenopathy. Trachea midline. Heart: S1 S2. Regular rate and rhythm. Lungs: Diminished bases poor and steatorrhea for. Abdomen: Soft, tenderness upper abdomen mild bloatedness tense with hypoactive bowel sounds. Extremities: Normal skin color and turgor. No cyanosis, rash, ulceration, clubbing, or edema. Radial and pedal pulses are 2/4 bilaterally. Mendieta with clear mateusz urine. Neurological: No focal deficits. Strength and sensation are grossly intact. - Labs CBC & Chem 7: 04/20/17 05:23 04/20/17 05:23 Labs: Abnormal Lab Results - Last 24 Hours (Table) 04/17/17 04/19/17 04/19/17 Range/Units 11:57 07:01 07:01 WBC 35.0 H* (3.8-10.6) k/uL Hgb 9.8 L (13.0-17.5) gm/dL Hct 34.3 L (39.0-53.0) % MCV 78.6 L (80.0-100.0) fL MCH 22.5 L (25.0-35.0) pg MCHC 28.6 L (31.0-37.0) g/dL Plt Count 515 H (150-450) k/uL Sodium 152 H (137-145) mmol/L Potassium 3.1 L (3.5-5.1) mmol/L Chloride 115 H (98-107) mmol/L Carbon Dioxide 19 L (22-30) mmol/L BUN 25 H (9-20) mg/dL Glucose 106 H (74-99) mg/dL Calcium 8.2 L (8.4-10.2) mg/dL Alkaline Phosphatase 130 H (38-126) U/L Total Protein 4.4 L (6.3-8.2) g/dL Albumin 2.1 L (3.5-5.0) g/dL Amylase 286 H (30-110) U/L Lipase 1963 H (23-300) U/L Procalcitonin 14.93 H (0.02-0.09) ng/mL Microbiology - Last 24 Hours (Table) 04/17/17 12:02 Blood Culture - Preliminary Blood No Growth after 24 hours 04/17/17 12:02 Blood Culture - Preliminary Blood No Growth after 24 hours 04/17/17 13:15 Urine Culture - Final Urine,Catheterized Assessment and Plan (1) Acute pancreatitis Narrative/Plan: Severe pancreatitis SIRS sepsis with worsening biochemical pancreatic profile leukocytosis, elevated BUN with electrolyte disturbances. Suspect alcohol- related however other differentials to consider is cystic neoplastic process cannot be entirely excluded. Current Visit: Yes Status: Acute Code(s): K85.90 - ACUTE PANCREATITIS WITHOUT NECROSIS OR INFECTION, UNSP SNOMED Code(s): 768259381 (2) Leukocytosis Current Visit: Yes Status: Acute Code(s): D72.829 - ELEVATED WHITE BLOOD CELL COUNT, UNSPECIFIED SNOMED Code(s): 602934874 (3) Pancreatic pseudocyst Current Visit: Yes Status: Acute Code(s): K86.3 - PSEUDOCYST OF PANCREAS SNOMED Code(s): 784863822 (4) H/O ETOH abuse Current Visit: Yes Status: Acute Code(s): Z87.898 - PERSONAL HISTORY OF OTHER SPECIFIED CONDITIONS SNOMED Code(s): 348488184 (5) Hypernatremia Current Visit: Yes Status: Acute Code(s): E87.0 - HYPEROSMOLALITY AND HYPERNATREMIA SNOMED Code(s): 12359451 (6) Elevated BUN Current Visit: Yes Status: Acute Code(s): R79.9 - ABNORMAL FINDING OF BLOOD CHEMISTRY, UNSPECIFIED SNOMED Code(s): 221421778 (7) Hypokalemia Current Visit: Yes Status: Acute Code(s): E87.6 - HYPOKALEMIA SNOMED Code( s): 32375951 Plan: 1. Dr. Sherman recommends transfer to tertiary care center secondary to worsening biochemical profile. Infected pseudocyst pancreatic necrosis cannot be excluded. These recommendations were discussed with Dr. Steinberg's nurse practitioner Any Reis; at this time Dr. Steinberg is not transferring patient. Dr. Sherman recommends a Gen. surgical consult. 2. Continue with intravenous antibiotics supportive measures and IV hydration. 3. Infectious disease following. 4. Continue nothing by mouth status. Assessment and plan a care discussed with Dr. Sherman.
--- NOTE | 2017-04-19 10:58 | P.PN ---
Subjective Progress Note Date: 04/19/17 71-year-old male who presented to the emergency room on 04/15/2017 with a chief complaint of generalized abdominal pain x 1 day. The patient also had complaints of nausea but denies emesis. Reports decreased oral intake secondary to abdominal pain. He denied chest pain or pressure. Denies shortness of breath. No constipation or diarrhea. In the emergency room, chest x-ray was completed revealing bibasilar subsegmental dependent atelectasis. KUB x-ray was completed revealing nonobstructive bowel gas pattern. A computed tomography scan of the abdomen and pelvis was completed revealing findings consistent with pancreatitis and probable pseudocyst and ascites. Laboratory studies revealed white count of 11 , hemoglobin 10.9, platelet count 588, INR 1.1, sodium 140, potassium 3.9, BUN 11, creatinine 0.85, lactic acid 1.9, AST 11, ALC 19, troponin negative 1, triglycerides 79, amylase 654, and lipase 3977. He was admitted to the hospital under the care of Dr. Mitchell. Consultations were placed to gastroenterology. The patient had a previous admission from 02/08/2017 until 02/11/2017 secondary to acute pancreatitis and pneumonia. During that hospitalization, the patient underwent a computed tomography scan that Moderate wall thickening of the distal esophagus was seen with a possible moderately sized hiatal hernia. Edema and fluid tracking along the upper abdominal retroperitoneum, anterior margin of the pancreas, and in the gastrohepatic ligament region in which pancreatitis could not be excluded. Additionally there was poor delineation between the fluid in the posterior gastric fundus and which peptic ulcer disease could not be excluded. There were also scattered pulmonary nodules seen measuring up to 6 mm. Lastly there was a 1.2 cm hypoechoic lesion in the pancreatic tail noted. He underwent an EGD which revealed small hiatal hernia, no evidence of esophagitis or complicated reflux, and mild antral gastritis. Abnormalities that were found on the computed tomography scan were not substantiated during EGD. Pulmonary evaluated patient during that hospitalization and pulmonary nodules were felt to be secondary to pneumonia and he was to follow up on an outpatient basis with tour bus driver/guide. The patient underwent an outpatient MRCP on 03/03/2017 which revealed normal- appearing common bile duct, 7-10 cm cystic mass in the pancreatic region, and additional satellite areas of cystic changes in the periportal region and near the pancreatic tail, right renal marked atrophy with compensatory hypertrophy of left kidney, stable 1.5 cm left adrenal mass unchanged from 2010, and small bilateral pleural effusions. The patient also underwent an outpatient computed tomography scan of the abdomen on 03/21/2017 which revealed findings suggestive of moderate acute on chronic pancreatitis with several pseudocyst or lobulated larger pseudocyst suspected, acute peripancreatitis fluid collection, significant mass effect on distal esophagus which shows severe wall thickening. In addition to the patient's history of pancreatitis and pneumonia, he also has a history of gastroesophageal reflux disease, hypertension, diverticulosis, laminectomy. He states that he is a former cigarette smoker and quit smoking cigarettes in 2001 and he has been smoking a pipe since that time. The patient has a history of alcohol abuse. He reports that he used to be a very heavy drinker but recently has been consuming 3-8 beers per day. He states that he has not consumed alcohol within the last 3 weeks. 04/15/2017 The patient was seen and examined at the bedside by Dr. Mitchell. He states he is having severe abdominal pain at this time. He denies nausea or vomiting currently. Denies chest pain or shortness of breath. Denies constipation or diarrhea. His vital signs have remained stable. He is afebrile. He denies additional concerns at this time. 04/16/2017-Notes per Dr. Mitchell The patient continues to experience pain. Overnight he had urinary retention, requiring a straight cath 2. The third time a Mendieta catheter was placed. He continues to complain of epigastric abdominal pain. Nursing reports that he receives Dilaudid and then falls asleep.their consultation was reviewed.he remains nothing by mouth. He denies a bowel movement. He denies any chest pains, pressures, shortness of breath. 04/17/2017-Notes per Dr. Mitchell Patient is pain is improved. He continues on Dilaudid as needed. He remains on the CEWA protocol. His white count was elevated. Respiratory therapy indicate a 90% pulse oximetry on 2 L O2 this morning. He continues to have Mendieta catheter. I'm unable to locate a urinalysis. He is complaining of some coughing as well today. He denies any chest pains, pressures, or significant shortness of breath. He does have pain with motion in the midepigastrium. He is tolerating ice chips. 04/18/2017 Patient seen and examined at the bedside. Nursing staff that the patient recently received Ativan for a CIWA score of 10 and states the patient was very anxious, diaphoretic, and very restless/fidgety. Chest xray was completed on revealing worsening bibasilar airspace disease. He remains on 2 L nasal cannula with oxygen saturations around 92%. Urinalysis completed yesterday reveals 1+ protein, 1+ ketones, moderate blood, small leukocyte esterase, RBC of 81, WBC of 13, rare bacteria and rare mucus. Urine culture is negative at the 18 hour murphy. Blood cultures were completed on 04/17/2017 and results are currently pending. Infectious disease has been consulted for further evaluation. He was started on Zosyn. His white count has increased to 23.4 from 22.9. 04/19/2017 Patient seen and examined at the bedside on rounds with Dr. Steinberg. Patient is lethargic, but has recently received IV pain medication per nursing. He is arousable to verbal stimuli. He is speaking with one to two word answers when asked questions. He states he feels his pain has improved slightly. He continues to be nauseous but has not had any episodes of emesis. His basin at the bedside has a small amount of green tinged sputum present. He has an indwelling urinary catheter with clear mateusz urine. He complains of constipation. He received a dulcolax suppository yesterday but has not had a bowel movement. His abdomen does appear slightly more distended and firm today. His WBC has increased from 23.4 to 35.0. He is afebrile. Infectious disease has been following. He is on Zosyn currently. He has been tachycardic with a rate in the 110s. Lopressor was added yesterday to regimen. Potassium this morning is low at 3.1. Sodium is elevated at 152. Amylase has increased from 233 to 286 and lipase has increased from 752 to 1963. Objective - Vital Signs Vital signs: Vital Signs Temp 96.7 F L 04/19/17 07:00 Pulse 114 H 04/19/17 07:00 Resp 16 04/19/17 07:00 BP 132/74 04/19/17 07:00 Pulse Ox 94 L 04/19/17 07:00 Intake & Output 04/18/17 04/19/17 04/19/17 18:59 06:59 18:59 Intake Total 175 Output Total 600 350 Balance -600 -175 Intake: Intake, IV Titration 175 Amount Piperacillin-Tazobactam 3 50 .375 gm In Dextrose/Water 1 50ml.bag @ 12.5 mls/hr IVPB Q8H BENJAMÍN Rx#: [id number] Sodium Chloride 0.9% 1, 125 000 ml @ 125 mls/hr IV . Q8H BENJAMÍN Rx#:[id number] Output: Urine 600 350 Other: Voiding Method Indwelling Catheter Indwelling Catheter - Exam GENERAL: This is a 71-year-old male who appears lethargic at the time of examination. HEENT: Head is atraumatic, normocephalic. Pupils are equal, round, and reactive to light. Sclerae anicteric. Conjunctivae are clear. Mucus membranes of the mouth are moist. Neck is supple. RESPIRATORY: Diminished lung sounds with scattered rhonchi. No use of accessory muscles. Patient maintaining oxygen saturation greater than 92% on 2 L nasal cannula. No chest wall tenderness is noted on palpation or with deep breathing. CARDIOVASCULAR: Tachycardic. Regular rate and rhythm. S1 and S2 noted. No systolic or diastolic murmur auscultated. No JVD noted. No S3 or S4 noted. GASTROINTESTINAL: Abdomen appears slightly more distended and firm than previous examinations. Hypoactive bowel sounds auscultated x 4 quadrants. Pain and tenderness noted upon palpation of all 4 quadrants. INTEGUMENTARY: No cyanosis. No jaundice. No rashes noted. No cellulitis noted. EXTREMITIES: 2+ peripheral pulses. No evidence of peripheral edema. No calf tenderness noted. NEUROLOGIC: Cranial nerves II-XII intact. PSYCHIATRIC: Patient is lethargic at this time, but just received IV pain medication - Labs CBC & Chem 7: 04/19/17 07:01 04/19/17 07:01 Labs: Abnormal Lab Results - Last 24 Hours (Table) 04/17/17 04/19/17 04/19/17 Range/Units 11:57 07:01 07:01 WBC 35.0 H* (3.8-10.6) k/uL Hgb 9.8 L (13.0-17.5) gm/dL Hct 34.3 L (39.0-53.0) % MCV 78.6 L (80.0-100.0) fL MCH 22.5 L (25.0-35.0) pg MCHC 28.6 L (31.0-37.0) g/dL Plt Count 515 H (150-450) k/uL Sodium 152 H (137-145) mmol/L Potassium 3.1 L (3.5-5.1) mmol/L Chloride 115 H (98-107) mmol/L Carbon Dioxide 19 L (22-30) mmol/L BUN 25 H (9-20) mg/dL Glucose 106 H (74-99) mg/dL Calcium 8.2 L (8.4-10.2) mg/dL Alkaline Phosphatase 130 H (38-126) U/L Total Protein 4.4 L (6.3-8.2) g/dL Albumin 2.1 L (3.5-5.0) g/dL Amylase 286 H (30-110) U/L Lipase 1963 H (23-300) U/L Procalcitonin 14.93 H (0.02-0.09) ng/mL Microbiology - Last 24 Hours (Table) 04/17/17 12:02 Blood Culture - Preliminary Blood No Growth after 24 hours 04/17/17 12:02 Blood Culture - Preliminary Blood No Growth after 24 hours 04/17/17 13:15 Urine Culture - Final Urine,Catheterized Assessment and Plan Plan: ASSESSMENT: Acute pancreatitis and pancreatic pseudocyst with worsening pancreatic enzymes, patient denies alcohol use, etiology uncertain at this time Abdominal pain, present on admission, secondary to pancreatitis Leukocytosis and tachycardia, meets SIRS criteria, possible sepsis, underlying infectious process cannot be ruled out at this time Recent hospital admission in February 2017 secondary to acute pancreatitis and pneumonia Urinary retention requiring insertion of indwelling urinary catheter Microcytic hypochromic anemia with normal RDW, type unknown, may be secondary to hemodilution Gastroesophageal reflux disease Essential hypertension Nicotine dependence, patient is a former cigarette smoker and current tobacco pipe smoker History of alcohol abuse, patient reports drinking 3-8 beers a day but states he quit 3 weeks ago Hypokalemia Hypernatremia PLAN: -GI on consult. Appreciate recommendations and input -Zoe Baeza contacted INFORMAT[facility] SPECIALIST and recommended transfer to another facility. Dr. Steinberg does not want patient transferred at this time -Transfer to selective care per Dr. Steinberg -Infectious disease on consult. Appreciate recommendations and input -Antibiotic regimen per ID. Currently on Zosyn -Replace potassium -Change IV fluids to 0.45 at 125 mL an hour -Obtain sputum culture -Obtain AFB per Dr. Steinberg -Obtain Lactic acid -STAT CT abdomen, pelvis, and chest -Wean oxygen as tolerated to maintain oxygen saturations greater than 92% -Incentive spirometer 10 times an hour while awake -Continue CIWA scale per protocol -Pain control: Dilaudid 1 mg every 3 hours -PT/OT consult -Continue telemetry monitoring -Continue indwelling urinary catheter -Home meds as appropriate -Monitor labs. Repeat in a.m. -GI prophylaxis: Protonix 40 mg IV daily -DVT prophylaxis: Venodyne's to bilateral lower extremities -Monitor vital signs and address as appropriate -Discharge planning: Patient to return home with home care depending on patients clinical course may require ECF -Further recommendations pending patient's course Nurse practitioner note has been reviewed by physician. Signing provider agrees with the documented findings, assessment, and plan of care.
[2017-04-19 11:09] LABS: Band Neutrophils % 16 %; Monocytes # (M) 1.05 k/uL (0-1.0); Neutrophils % (M) 79 %; Nucleated Red Blood Cells 0 /100 WBC (0-0); Total Cells Counted 200; Toxic Granulation Present
[2017-04-19 11:10] LABS: Anisocytosis (M) Present; Polychromasia Present; Toxic Vacuolation Present
--- NOTE | 2017-04-19 11:28 | CT ---
EXAMINATION TYPE: CT ChestAbdPelvis w con DATE OF EXAM: 04/19/2017 COMPARISON: 04/15/2017 HISTORY: Shortness of breath with history of pancreatitis and abdominal pain CT DLP: 1570 mGycm. Automated Exposure Control for Dose Reduction was Utilized. CONTRAST: CT scan of the thorax, abdomen and pelvis is performed with IV Contrast, patient injected with 100 mL of Omnipaque 300. FINDINGS: LUNGS: There are moderate bilateral pleural effusions and associated segmental and subsegmental compr essive atelectasis. There is left hemidiaphragm elevation, similar to the prior of 04/15/2017. Scatter ed reticular groundglass opacity is are seen nondependently within the anterior left upper lobe and a long the right interlobar fissure on series 4 image 27. Additionally on the same image there is a rig ht upper lobe 3 mm solid pulmonary nodule. Moderate centrilobular and paraseptal emphysematous change s are seen. MEDIASTINUM: There are no greater than 1 cm hilar or mediastinal lymph nodes. No pericardial effusi on is seen. The esophagus is fluid-filled with an air-fluid level in the upper esophagus. LIVER/GB: There is redemonstration of mild periportal edema. Air is now located within the gallbladde r nondependently, not seen on the prior exam. No gallbladder wall thickening is appreciated. PANCREAS: Again there is an elongated fluid collection extending the length of the pancreas seen ante rior and just cranial to the pancreas measuring up to 1.7 cm in width at the level of the pancreatic head. This is smaller than on the prior exam of 04/15/2017. Distal pancreatic body low density oval we ll-circumscribed lesion is unchanged measuring approximately 1.2 cm. The second intra-abdominal fluid collection on series 3 image 66 just inferior to the gastric antrum appears unchanged measuring 5.1 x 3.3 cm although degree of surrounding inflammatory change has dimin ished. Elongated crescentic margin along the lesser curvature of the stomach has resolved. Degree of wall enhancement of both peripancreatic fluid collections has decreased in the interim. SPLEEN: No significant abnormality is seen. ADRENALS: There is continued thickening of the left adrenal gland with a nodule measuring 2.1 cm that is not compatible with a benign adrenal adenoma on this examination. KIDNEYS: Right renal atrophy is redemonstrated. Left kidney is unremarkable. Urinary bladder is decom pressed containing a Mendieta catheter. BOWEL: There is gastrectasis and numerous loops of enlarged fluid-filled small bowel with air-fluid l evels. Small bowel is dilated up to 4.2 cm and mucosal hyperemia with prominent valvulae conniventes are seen within the left mid to lower abdomen. Although the colon is decompressed throughout there is dilation of the distal small bowel without identifiable transition point. Moderate volume abdominal pelvic ascites with diffuse mesenteric congestion is present. No portal venous gas. LYMPH NODES: Evaluation for adenopathy is limited secondary to mesenteric congestion and dilated smal l bowel. No gross evidence of greater than 1cm abdominal or pelvic lymph nodes are appreciated. OSSEOUS STRUCTURES: Moderate multilevel degenerative changes of the thoracolumbar and lumbosacral spi ne are noted. Heterotopic ossification is seen of the right iliac bone. Compression deformity of the midthoracic vertebrae is unchanged dating back to the 03/29/2017 chest radiograph. IMPRESSION: 1. Decreasing size and enhancement of the peripancreatic and perigastric fluid collections likely pse udocysts. 2. New air within the gallbladder. No gallbladder wall thickening is seen to suggest emphysematous ch olecystitis. Fistula is possible. No intrahepatic pneumobilia or air within the pancreatic duct. 3. Diffuse dilatation of the small bowel containing air-fluid levels with decompressed colon. No dist inct transition point is seen and severe reactive ileus is favored in light of the recent diagnosis o f pancreatitis. 4. Moderate volume abdominal pelvic ascites and mesenteric congestion. 5. Moderate pleural effusions, segmental and subsegmental bilateral atelectasis, and bilateral reticu lar opacity suspicious for pneumonia. Inflammatory pneumonitis is also a possibility. 6. Redemonstration of a cystic appearing pancreatic lesion, nonspecific. 7. Left adrenal gland lesion that does not fit criteria for adrenal gland adenoma although a stable back to 2009 and favored to b e benign. 7. Dilated and fluid-filled esophagus. Aspiration precautions are recommended.
[2017-04-19 12:35] LABS: Glucose,Whole Blood 122 mg/dL (75-99)
[2017-04-19] MEDS: 0.45% NACL WITH KCL 20 MEQ/L 1,000 ML IV SCH (13:00)
[2017-04-19] MEDS: POTASSIUM CHLORIDE 20 MEQ in SODIUM CHLORIDE 0.9% 100 ML IVPB SCH ×3 (13:01→20:15)
[2017-04-19] MEDS: THIAMINE 100 MG TAB PO SCH ×2 (13:09→16:51)
[2017-04-19 16:49] LABS: Glucose,Whole Blood 125 mg/dL (75-99)
--- NOTE | 2017-04-19 19:38 | P.GSCN ---
History of Present Illness Consult date: 04/19/17 Reason for Consult: Abdominal pain History of present illness: 71-year-old male known to our service. The patient has had issues related to chronic alcohol use and pancreatitis with pseudocyst formation. Patient presented to the hospital 4 days ago with abdominal pain and vomiting. He has had a progressive increasing leukocytosis. Amylase and lipase are elevated. CAT scan showed pancreatitis along with ascites and pseudocyst formation. Repeat CAT scan performed earlier today showed a small bubble of air within the gallbladder fundus. The degree of ascites and inflammatory changes in the abdomen have increased. The pseudocyst size has decreased slightly. GI is following this patient as well and is familiar with his course over the last few months. Concern regarding possible pancreatic/biliary malignancy has been entertained. 2 separate CA-19-9 levels however were normal. No biopsies are taken place. Patient has had some confusion over the last day or so. CAT scan also shows distention of the stomach and proximal small bowel. Attempts at nasogastric tube placement were unsuccessful. Patient remains full code. The patient's mother is listed as his next of kin. Bandemia present done yesterday and today CBC. He is on IV antibiotics and is being followed by infectious disease. We are asked to evaluate this patient for the air within the gallbladder. Primary service is considering transfer to a tertiary care center however would like additional information obtained here prior to transfer. Review of Systems Patient confused unable to accurately obtain Past Medical History Past Medical History: Blood Disorder, GERD/Reflux, Hypertension Additional Past Medical History / Comment(s): HX of Stomach ulcer., Anemia, Constipation.DIVERTICULOSIS(PER COLONOSCOPY) History of Any Multi-Drug Resistant Organisms: None Reported Past Surgical History: Back Surgery, Tonsillectomy Additional Past Surgical History / Comment(s): laminectomy, DENTAL IMPLANTS, COLONOSCOPY. Left middle finger surgery. Past Anesthesia/Blood Transfusion Reactions: No Reported Reaction Past Psychological History: No Psychological Hx Reported Smoking Status: Current every day smoker Additional Past Alcohol Use History / Comment(s): Patient smoked a pipe for greater than 50 years and quit in February 2017. Patient's in 2015. He states he lives with his mother who is 93 years of age. He is worked in the past most recently at the [employer] and is retired. - Past Family History Father Family Medical History: Cancer Additional Family Medical History / Comment(s): . Mother Family Medical History: GI Bleed Additional Family Medical History / Comment(s): MOTHER IS 93 YRS OLD. Medications and Allergies Home Medications Medication Instructions Recorded Confirmed Type amLODIPine [Norvasc] 5 mg PO BID 08/05/15 04/15/17 History Moexipril HCl [Univasc] 15 mg PO BID 08/06/15 04/15/17 History Bisacodyl [Dulcolax] 5 mg PO DAILY PRN 12/28/16 04/15/17 History Melatonin 10 mg PO HS 02/08/17 04/15/17 History Pantoprazole [Protonix] 40 mg PO DAILY #30 tablet. 02/09/17 04/15/17 Rx Acetaminophen Tab [Tylenol Tab] 650 mg PO Q4H PRN 04/15/17 04/15/17 History Allergies Allergy/AdvReac Type Severity Reaction Status Date / Time No Known Allergies Allergy Verified 04/15/17 08:44 Surgical - Exam Vital Signs Temp Pulse Resp BP Pulse Ox 97.5 F L 110 H 24 154/83 97 04/15/17 06:28 04/15/17 06:28 04/15/17 06:28 04/15/17 06:28 04/15/17 06:28 Physical exam: General: Malnourished appearing elderly male in no distress HEENT: Normocephalic, sclerae nonicteric Abdomen: Distended, diffuse tenderness, nonlocalized, voluntary guarding, no rebound Extremities: Edema present Neuro: Confused Results - Labs 04/19/17 07:01 04/19/17 07:01 Abnormal Lab Results - Last 24 Hours (Table) 04/17/17 04/19/17 04/19/17 Range/Units 11:57 07:01 07:01 WBC 35.0 H* (3.8-10.6) k/uL Hgb 9.8 L (13.0-17.5) gm/dL Hct 34.3 L (39.0-53.0) % MCV 78.6 L (80.0-100.0) fL MCH 22.5 L (25.0-35.0) pg MCHC 28.6 L (31.0-37.0) g/dL Plt Count 515 H (150-450) k/uL Neutrophils # (Manual) 33.20 H (1.3-7.7) k/uL Lymphocytes # (Manual) 0.70 L (1.0-4.8) k/uL Monocytes # (Manual) 1.05 H (0-1.0) k/uL Sodium 152 H (137-145) mmol/L Potassium 3.1 L (3.5-5.1) mmol/L Chloride 115 H (98-107) mmol/L Carbon Dioxide 19 L (22-30) mmol/L BUN 25 H (9-20) mg/dL Glucose 106 H (74-99) mg/dL POC Glucose (mg/dL) (75-99) mg/dL Calcium 8.2 L (8.4-10.2) mg/dL Alkaline Phosphatase 130 H (38-126) U/L Total Protein 4.4 L (6.3-8.2) g/dL Albumin 2.1 L (3.5-5.0) g/dL Amylase 286 H (30-110) U/L Lipase 1963 H (23-300) U/L Procalcitonin 14.93 H (0.02-0.09) ng/mL 04/19/17 04/19/17 Range/Units 12:32 16:48 WBC (3.8-10.6) k/uL Hgb (13.0-17.5) gm/dL Hct (39.0-53.0) % MCV (80.0-100.0) fL MCH (25.0-35.0) pg MCHC (31.0-37.0) g/dL Plt Count (150-450) k/uL Neutrophils # (Manual) (1.3-7.7) k/uL Lymphocytes # (Manual) (1.0-4.8) k/uL Monocytes # (Manual) (0-1.0) k/uL Sodium (137-145) mmol/L Potassium (3.5-5.1) mmol/L Chloride (98-107) mmol/L Carbon Dioxide (22-30) mmol/L BUN (9-20) mg/dL Glucose (74-99) mg/dL POC Glucose (mg/dL) 122 H 125 H (75-99) mg/dL Calcium (8.4-10.2) mg/dL Alkaline Phosphatase (38-126) U/L Total Protein (6.3-8.2) g/dL Albumin (3.5-5.0) g/dL Amylase (30-110) U/L Lipase (23-300) U/L Procalcitonin (0.02-0.09) ng/mL Microbiology - Last 24 Hours (Table) 04/17/17 12:02 Blood Culture - Preliminary Blood No Growth after 48 hours 04/17/17 12:02 Blood Culture - Preliminary Blood No Growth after 48 hours Diabetes panel 04/19/17 Range/Units 07:01 Sodium 152 H (137-145) mmol/L Potassium 3.1 L (3.5-5.1) mmol/L Chloride 115 H (98-107) mmol/L Carbon Dioxide 19 L (22-30) mmol/L BUN 25 H (9-20) mg/dL Creatinine 0.89 (0.66-1.25) mg/dL Glucose 106 H (74-99) mg/dL Calcium 8.2 L (8.4-10.2) mg/dL AST 32 (17-59) U/L ALT 31 (21-72) U/L Alkaline Phosphatase 130 H (38-126) U/L Total Protein 4.4 L (6.3-8.2) g/dL Albumin 2.1 L (3.5-5.0) g/dL Calcium panel 04/19/17 Range/Units 07:01 Calcium 8.2 L (8.4-10.2) mg/dL Albumin 2.1 L (3.5-5.0) g/dL Pituitary panel 04/19/17 Range/Units 07:01 Sodium 152 H (137-145) mmol/L Potassium 3.1 L (3.5-5.1) mmol/L Chloride 115 H (98-107) mmol/L Carbon Dioxide 19 L (22-30) mmol/L BUN 25 H (9-20) mg/dL Creatinine 0.89 (0.66-1.25) mg/dL Glucose 106 H (74-99) mg/dL Calcium 8.2 L (8.4-10.2) mg/dL Adrenal panel 04/19/17 Range/Units 07:01 Sodium 152 H (137-145) mmol/L Potassium 3.1 L (3.5-5.1) mmol/L Chloride 115 H (98-107) mmol/L Carbon Dioxide 19 L (22-30) mmol/L BUN 25 H (9-20) mg/dL Creatinine 0.89 (0.66-1.25) mg/dL Glucose 106 H (74-99) mg/dL Calcium 8.2 L (8.4-10.2) mg/dL Total Bilirubin 0.3 (0.2-1.3) mg/dL AST 32 (17-59) U/L ALT 31 (21-72) U/L Alkaline Phosphatase 130 H (38-126) U/L Total Protein 4.4 L (6.3-8.2) g/dL Albumin 2.1 L (3.5-5.0) g/dL Assessment and Plan (1) Acute pancreatitis Narrative/Plan: Patient with ongoing abdominal pain and pancreatitis with pseudocyst formation. Patient's pain seems to have increased somewhat recently. Ascites likewise hasn't increased. Possibility of pancreatic ascites was discussed with the primary service and GI as well. The bubble of air within the gallbladder is difficult to explain but could be on the basis of neoplastic fistula formation. The patient has not had ERCP or other pancreaticobiliary intervention to explain that. Options of tertiary care transfer were discussed. The patient has an extremely poor prognosis given the progressive CAT scan findings and current lab values. Diagnostic paracentesis could be of some value in determining the severity of the patient's underlying illness. After discussing with the primary service we decided to order the diagnostic paracentesis and the requested studies at this time. We'll follow with you. Current Visit: Yes Status: Acute Code(s): K85.90 - ACUTE PANCREATITIS WITHOUT NECROSIS OR INFECTION, UNSP SNOMED Code(s): 734371380
[2017-04-19 21:09] LABS: Glucose,Whole Blood 123 mg/dL (75-99)
--- NOTE | 2017-04-19 21:32 | P.PN ---
Subjective Progress Note Date: 04/19/17 Principal diagnosis: Abdominal pain This is a 71-year-old male patient who presented by ambulance on April 15 to [facility] emergency center with severe abdominal pain with nausea without vomiting and decreased oral intake. He was also tachycardic with sweats. Patient was found to be afebrile, tachycardic with leukocytosis of 20.8 now at 23.4. Amylase initially 451 and now 251. Lipase initially 3281 and repeat 902. Urinalysis was clear, blood moderate, leukoesterase small, RBCs 81, WBC 13, bacteria rare. Urine culture is in progress. Blood cultures status received. Chest x-ray showed increasing linear bibasilar subsegmental atelectasis. KUB showed nonobstructing pattern. CAT scan of the abdomen and pelvis with contrast revealed pancreatitis with probable pseudocyst. Ascites. Repeat chest x-ray on April 17 showed worsening bibasilar airspace disease. Patient is complaining of nausea and significant abdominal pain. He is currently on nothing by mouth status with ice chips and meds only. Patient had urinary retention and Mendieta catheter has been placed. Patient is not had a bowel movement since arrival and he feels constipated. He is complaining of mostly neck and pain to the left mid abdomen. Patient has been unable to participate with physical therapy due to pain. He has had a previous episode of pancreatitis in February 2017 and EGD was done for evaluation of possible neoplastic lesion in the esophagus per CAT scan results. EGD showed mild antral gastritis with no evidence of ulcers or gastric outlet obstruction. No evidence of neoplastic process. He also underwent MRCP that showed normal appearance of the common bile duct and intrahepatic ducts. 7-10 cm cystic mass appeared and pancreatic region. Additional satellite areas of cystic changes in the periportal region near the pancreatic tail. CA 199 was 11.8. Patient does have history of alcohol abuse drinking 6-7 beers daily and quit a month ago. Patient did require oxygen over the weekend for pulse ox of 86% on room air. Patient is worsened today. Leukocytosis is increased. Having some ongoing abdominal pain. Lipase increased further. Objective - Vital Signs Vital signs: Vital Signs Temp 97.4 F L 04/19/17 19:48 Pulse 108 H 04/19/17 19:48 Resp 14 04/19/17 19:48 BP 108/67 04/19/17 19:48 Pulse Ox 95 04/19/17 19:48 Intake & Output 04/19/17 04/19/17 04/20/17 06:59 18:59 06:59 Intake Total 175 1150 Output Total 350 0 Balance -175 1150 Weight 54.431 kg Intake: IV 1150 0.45% NaCl with KCl 20 400 Meq/l 1,000 ml @ 100 mls/ hr IV .Q10H BENJAMÍN Rx#: [id number] Piperacillin-Tazobactam 3 50 .375 gm In Dextrose/Water 1 50ml.bag @ 12.5 mls/hr IVPB Q8H BENJAMÍN Rx#: [id number] Potassium Chloride 20 meq 200 In Sodium Chloride 0.9% 100 ml @ 50 mls/hr IVPB Q2H BENJAMÍN Rx#:[id number] Sodium Chloride 0.45% 1, 500 000 ml @ 125 mls/hr IV . Q8H BENJAMÍN Rx#:[id number] Intake, IV Titration 175 Amount Piperacillin-Tazobactam 3 50 .375 gm In Dextrose/Water 1 50ml.bag @ 12.5 mls/hr IVPB Q8H BENJAMÍN Rx#: [id number] Sodium Chloride 0.9% 1, 125 000 ml @ 125 mls/hr IV . Q8H BENJAMÍN Rx#:[id number] Output: Urine 350 0 Stool 0 Other: Voiding Method Indwelling Catheter Indwelling Catheter # Voids 0 # Bowel Movements 0 - Exam Gen: This is a thin 71-year-old male patient. He is in bed and appears to be somewhat uncomfortable. HEENT: Head is atraumatic, normocephalic. Pupils equal, round. Sclerae is anicteric. NECK: Supple. No JVD. No lymphadenopathy. No thyromegaly. LUNGS: Clear to auscultation. No wheezes or rhonchi. No intercostal retractions. HEART: Regular rate and rhythm. No murmur. Tachycardic. ABDOMEN: Soft. Bowel sounds are present. No masses. Significant generalized tenderness. Patient points to the left mid abdomen is most painful but is tender to light touch all over his abdomen. EXTREMITIES: No pedal edema. No calf tenderness. NEUROLOGICAL: Patient is awake, alert and oriented to person. - Labs CBC & Chem 7: 04/19/17 07:04/19/17 07:01 Labs: Abnormal Lab Results - Last 24 Hours (Table) 04/17/17 04/19/17 04/19/17 Range/Units 11:57 07:01 07:01 WBC 35.0 H* (3.8-10.6) k/uL Hgb 9.8 L (13.0-17.5) gm/dL Hct 34.3 L (39.0-53.0) % MCV 78.6 L (80.0-100.0) fL MCH 22.5 L (25.0-35.0) pg MCHC 28.6 L (31.0-37.0) g/dL Plt Count 515 H (150-450) k/uL Neutrophils # (Manual) 33.20 H (1.3-7.7) k/uL Lymphocytes # (Manual) 0.70 L (1.0-4.8) k/uL Monocytes # (Manual) 1.05 H (0-1.0) k/uL Sodium 152 H (137-145) mmol/L Potassium 3.1 L (3.5-5.1) mmol/L Chloride 115 H (98-107) mmol/L Carbon Dioxide 19 L (22-30) mmol/L BUN 25 H (9-20) mg/dL Glucose 106 H (74-99) mg/dL POC Glucose (mg/dL) (75-99) mg/dL Calcium 8.2 L (8.4-10.2) mg/dL Alkaline Phosphatase 130 H (38-126) U/L Total Protein 4.4 L (6.3-8.2) g/dL Albumin 2.1 L (3.5-5.0) g/dL Amylase 286 H (30-110) U/L Lipase 1963 H (23-300) U/L Procalcitonin 14.93 H (0.02-0.09) ng/mL 04/19/17 04/19/17 04/19/17 Range/Units 12:32 16:48 21:08 WBC (3.8-10.6) k/uL Hgb (13.0-17.5) gm/dL Hct (39.0-53.0) % MCV (80.0-100.0) fL MCH (25.0-35.0) pg MCHC (31.0-37.0) g/dL Plt Count (150-450) k/uL Neutrophils # (Manual) (1.3-7.7) k/uL Lymphocytes # (Manual) (1.0-4.8) k/uL Monocytes # (Manual) (0-1.0) k/uL Sodium (137-145) mmol/L Potassium (3.5-5.1) mmol/L Chloride (98-107) mmol/L Carbon Dioxide (22-30) mmol/L BUN (9-20) mg/dL Glucose (74-99) mg/dL POC Glucose (mg/dL) 122 H 125 H 123 H (75-99) mg/dL Calcium (8.4-10.2) mg/dL Alkaline Phosphatase (38-126) U/L Total Protein (6.3-8.2) g/dL Albumin (3.5-5.0) g/dL Amylase (30-110) U/L Lipase (23-300) U/L Procalcitonin (0.02-0.09) ng/mL Microbiology - Last 24 Hours (Table) 04/17/17 12:02 Blood Culture - Preliminary Blood No Growth after 48 hours 04/17/17 12:02 Blood Culture - Preliminary Blood No Growth after 48 hours Laboratory Results WBC 35.0 k/uL (3.8-10.6) H* 04/19/17 07:01 RBC 4.37 m/uL (4.30-5.90) 04/19/17 07:01 Hgb 9.8 gm/dL (13.0-17.5) L 04/19/17 07:01 Hct 34.3 % (39.0-53.0) L 04/19/17 07:01 MCV 78.6 fL (80.0-100.0) L 04/19/17 07:01 MCH 22.5 pg (25.0-35.0) L 04/19/17 07:01 MCHC 28.6 g/dL (31.0-37.0) L 04/19/17 07:01 RDW 15.5 % (11.5-15.5) 04/19/17 07:01 Plt Count 515 k/uL (150-450) H 04/19/17 07:01 Neutrophils % 94 % 04/17/17 07:15 Neutrophils % (Manual) 79 % 04/19/17 07:01 Band Neutrophils % 16 % 04/19/17 07:01 Lymphocytes % 1 % 04/17/17 07:15 Lymphocytes % (Manual) 2 % 04/19/17 07:01 Monocytes % 4 % 04/17/17 07:15 Monocytes % (Manual) 3 % 04/19/17 07:01 Eosinophils % 0 % 04/17/17 07:15 Basophils % 0 % 04/17/17 07:15 Neutrophils # 21.5 k/uL (1.3-7.7) H 04/17/17 07:15 Neutrophils # (Manual) 33.20 k/uL (1.3-7.7) H 04/19/17 07:01 Lymphocytes # 0.3 k/uL (1.0-4.8) L 04/17/17 07:15 Lymphocytes # (Manual) 0.70 k/uL (1.0-4.8) L 04/19/17 07:01 Monocytes # 1.0 k/uL (0-1.0) 04/17/17 07:15 Monocytes # (Manual) 1.05 k/uL (0-1.0) H 04/19/17 07:01 Eosinophils # 0.0 k/uL (0-0.7) 04/17/17 07:15 Basophils # 0.1 k/uL (0-0.2) 04/17/17 07:15 Nucleated RBCs 0 /100 WBC (0-0) 04/19/17 07:01 Manual Slide Review Performed 04/17/17 07:15 Toxic Granulation Present 04/19/17 07:01 Toxic Vacuolation Present 04/19/17 07:01 Polychromasia Present 04/19/17 07:01 Hypochromasia Marked 04/19/17 07:01 Poikilocytosis Slight 04/19/17 07:01 Poikilocytosis (manual Present 04/17/17 07:15 Anisocytosis Slight 04/17/17 07:15 Anisocytosis (manual) Present 04/19/17 07:01 Microcytosis Slight 04/17/17 07:15 Target Cells Present 04/18/17 07:37 PT 10.7 sec (9.0-12.0) 04/15/17 06:51 INR 1.1 (<1.2) 04/15/17 06:51 APTT 21.7 sec (22.0-30.0) L 04/15/17 06:51 Sodium 152 mmol/L (137-145) H 04/19/17 07:01 Potassium 3.1 mmol/L (3.5-5.1) L 04/19/17 07:01 Chloride 115 mmol/L (98-107) H 04/19/17 07:01 Carbon Dioxide 19 mmol/L (22-30) L 04/19/17 07:01 Anion Gap 18 mmol/L 04/19/17 07:01 BUN 25 mg/dL (9-20) H 04/19/17 07:01 Creatinine 0.89 mg/dL (0.66-1.25) 04/19/17 07:01 Est GFR (MDRD) Af Amer >60 (>60 ml/min/1.73 sqM) 04/19/17 07:01 Est GFR (MDRD) Non-Af >60 (>60 ml/min/1.73 sqM) 04/19/17 07:01 Glucose 106 mg/dL (74-99) H 04/19/17 07:01 POC Glucose (mg/dL) 123 mg/dL (75-99) H 04/19/17 21:08 POC Glu [employer] Izaiah August 04/19/17 21:08 Plasma Lactic Acid Paras 1.3 mmol/L (0.7-2.0) 04/19/17 09:59 Calcium 8.2 mg/dL (8.4-10.2) L 04/19/17 07:01 Magnesium 2.2 mg/dL (1.6-2.3) 04/18/17 07:37 Total Bilirubin 0.3 mg/dL (0.2-1.3) 04/19/17 07:01 AST 32 U/L (17-59) 04/19/17 07:01 ALT 31 U/L (21-72) 04/19/17 07:01 Alkaline Phosphatase 130 U/L (38-126) H 04/19/17 07:01 Total Creatine Kinase <20 U/L (55-170) L 04/15/17 06:51 CK-MB (CK-2) <0.2 ng/mL (0.0-2.4) 04/15/17 06:51 CK-MB (CK-2) Rel Index 04/15/17 06:51 Troponin I <0.012 ng/mL (0.000-0.034) 04/15/17 06:51 Total Protein 4.4 g/dL (6.3-8.2) L 04/19/17 07:01 Albumin 2.1 g/dL (3.5-5.0) L 04/19/17 07:01 Triglycerides 79 mg/dL (<150) 04/15/17 06:51 Amylase 286 U/L (30-110) H 04/19/17 07:01 Lipase 1963 U/L (23-300) H 04/19/17 07:01 CA 19-9 Antigen 8.2 U/mL (0.0-34.9) 04/15/17 06:51 Procalcitonin 14.93 ng/mL (0.02-0.09) H 04/17/17 11:57 Urine Color Yellow 04/17/17 13:15 Urine Appearance Clear (Clear) 04/17/17 13:15 Urine pH 6.0 (5.0-8.0) 04/17/17 13:15 Ur Specific Marble 1.013 (1.001-1.035) 04/17/17 13:15 Urine Protein 1+ (Negative) H 04/17/17 13:15 Urine Glucose (UA) Negative (Negative) 04/17/17 13:15 Urine Ketones 1+ (Negative) H 04/17/17 13:15 Urine Blood Moderate (Negative) H 04/17/17 13:15 Urine Nitrite Negative (Negative) 04/17/17 13:15 Urine Bilirubin Negative (Negative) 04/17/17 13:15 Urine Urobilinogen <2.0 mg/dL (<2.0) 04/17/17 13:15 Ur Leukocyte Esterase Small (Negative) H 04/17/17 13:15 Urine RBC 81 /hpf (0-5) H 04/17/17 13:15 Urine WBC 13 /hpf (0-5) H 04/17/17 13:15 Urine Bacteria Rare /hpf (None) H 04/17/17 13:15 Urine Mucus Rare /hpf (None) H 04/17/17 13:15 IgG1 492.0 mg/dL (405.0-1011.0) 04/16/17 08:21 IgG2 279.0 mg/dL (169.0-640.0) 04/16/17 08:21 IgG3 26.5 mg/dL (11.0-85.0) 04/16/17 08:21 IgG4 57.4 mg/dL (3.0-175.0) 04/16/17 08:21 JACKSON Screen NEGATIVE (NEGATIVE) 04/16/17 08:21 Microbiology 04/17/17 12:02 Blood Blood Culture - Preliminary No Growth after 48 hours 04/17/17 12:02 Blood Blood Culture - Preliminary No Growth after 48 hours 04/17/17 13:15 Urine,Catheterized Urine Culture - Final - Imaging and Cardiology CT scan - abdomen: report reviewed (Now has evidence of some air in the gallbladder) Assessment and Plan (1) Acute pancreatitis Current Visit: Yes Status: Acute Code(s): K85.90 - ACUTE PANCREATITIS WITHOUT NECROSIS OR INFECTION, UNSP SNOMED Code(s): 866180261 (2) Leukocytosis Narrative/Plan: Is the patient developed this bout of significant pancreatitis which is not his first. He's having a significant leukocytosis which is a usual physiological response to this extensive organ inflammation. However the status has worsened in the last day. Leukocytosis is increased. Patient appears to more uncomfortable. Computed tomography scan has many abnormal findings including free air in the gallbladder which is of some great concern as per the surgical consult. A diagnostic paracentesis is planned with potential transfer to a tertiary center. Agree prognosis is poor. Continue antimicrobial therapy at this time cultures remain negative. Current Visit: Yes Status: Acute Code(s): D72.829 - ELEVATED WHITE BLOOD CELL COUNT, UNSPECIFIED SNOMED Code(s): 785032833
[2017-04-19] MEDS: MELATONIN 5 MG TABLET PO SCH (23:43)
[2017-04-20] MEDS: 0.45% NACL WITH KCL 20 MEQ/L 1,000 ML IV SCH (04:08)
[2017-04-20] MEDS: HYDROmorphone 0.5 MG/0.5 ML SYRINGE IVP PRN ×2 (04:39→10:01)
[2017-04-20] MEDS: PIPERACILLIN-TAZOBACTAM 3.375 GM in DEXTROSE/WATER 1 50ML.BAG IVPB SCH ×2 (04:43→12:27)
[2017-04-20 05:57] LABS: Glucose,Whole Blood 107 mg/dL (75-99)
[2017-04-20 06:21] LABS: Basophils # (A) 0.1 k/uL (0-0.2); Basophils % (A) 0 %; Eosinophils % (A) 0 %; HCT 31.4 % (39.0-53.0); HGB 8.9 gm/dL (13.0-17.5); Hypochromasia Marked; Lymphocytes # (A) 0.4 k/uL (1.0-4.8); Lymphocytes % (A) 1 %; MCH 21.9 pg (25.0-35.0); MCHC 28.4 g/dL (31.0-37.0); Mean Platelet Volume 7.1; Microcytosis Slight; Monocytes # (A) 0.6 k/uL (0-1.0); Monocytes % (A) 2 %; Neutrophils # (A) 36.1 k/uL (1.3-7.7); Neutrophils % (A) 97 %; Platelet Count 410 k/uL (150-450); Poikilocytosis Slight; RBC 4.08 m/uL (4.30-5.90); RDW 15.4 % (11.5-15.5)
[2017-04-20 06:23] LABS: WBC 37.3 k/uL (3.8-10.6)
[2017-04-20 06:29] LABS: ALT 37 U/L (21-72); AST 31 U/L (17-59); Albumin 1.9 g/dL (3.5-5.0); Alkaline Phosphatase 163 U/L (38-126); Anion Gap 13 mmol/L; Blood Urea Nitrogen 38 mg/dL (9-20); Calcium 7.9 mg/dL (8.4-10.2); Carbon Dioxide 18 mmol/L (22-30); Glucose 104 mg/dL (74-99); Potassium 3.9 mmol/L (3.5-5.1); Sodium 152 mmol/L (137-145); Total Bilirubin 0.2 mg/dL (0.2-1.3); Total Protein 4.3 g/dL (6.3-8.2)
[2017-04-20 06:43] LABS: Chloride 121 mmol/L (98-107)
[2017-04-20 06:44] LABS: Amylase 353 U/L (30-110); Lipase 2730 U/L (23-300)
[2017-04-20] MEDS: METOPROLOL TARTRATE 12.5 MG TAB PO SCH (08:45)
[2017-04-20] MEDS: PANTOPRAZOLE 40 MG/10 ML VIAL IVP SCH (08:45)
[2017-04-20] MEDS: THIAMINE 100 MG TAB PO SCH ×2 (08:46→16:29)
[2017-04-20] MEDS: LISINOPRIL 20 MG TAB PO SCH (08:46)
[2017-04-20] MEDS: amLODIPine 5 MG TAB PO SCH (08:46)
[2017-04-20] MEDS ORDERED: D5W WITH KCL 20 MEQ/L 1,000 ML IV SCH (09:15)
[2017-04-20 12:26] LABS: Glucose,Whole Blood 111 mg/dL (75-99)
--- NOTE | 2017-04-20 12:40 | P.PN ---
Subjective Progress Note Date: 04/20/17 Principal diagnosis: Abdominal pain/pancreatitis Patient just returned from having his diagnostic paracentesis performed. Still having diffuse abdominal pain. Nasogastric tube was placed with approximately 1.5-2 L of bilious output. Level confusion is about the same as yesterday. White blood cell count up slightly to 37.3. Paracentesis results are pending however the description of the fluid was a thin bloody appearing fluid. He is afebrile. Remains tachycardic. Objective - Vital Signs Vital signs: Vital Signs Temp 97.1 F L 04/20/17 08:00 Pulse 98 04/20/17 11:52 Resp 14 04/20/17 11:52 BP 99/67 04/20/17 11:52 Pulse Ox 98 04/20/17 11:52 Intake & Output 04/19/17 04/20/17 04/20/17 18:59 06:59 18:59 Intake Total 1150 Output Total 0 1200 450 Balance 1150 -1200 -450 Weight 54.431 kg 55.5 kg Intake: IV 1150 0.45% NaCl with KCl 20 400 Meq/l 1,000 ml @ 100 mls/ hr IV .Q10H BENJAMÍN Rx#: [id number] Piperacillin-Tazobactam 3 50 .375 gm In Dextrose/Water 1 50ml.bag @ 12.5 mls/hr IVPB Q8H BENJAMÍN Rx#: [id number] Potassium Chloride 20 meq 200 In Sodium Chloride 0.9% 100 ml @ 50 mls/hr IVPB Q2H BENJAMÍN Rx#:[id number] Sodium Chloride 0.45% 1, 500 000 ml @ 125 mls/hr IV . Q8H BENJAMÍN Rx#:[id number] Output: Gastric Drainage 450 Urine 0 1200 Stool 0 0 0 Other: Voiding Method Indwelling Catheter Indwelling Catheter Indwelling Catheter # Voids 0 0 # Bowel Movements 0 - Exam Abdomen: Soft, less distended, diffuse tenderness appreciated - Labs CBC & Chem 7: 04/20/17 05:23 04/20/17 05:23 Labs: Abnormal Lab Results - Last 24 Hours (Table) 04/19/17 04/19/17 04/20/17 Range/Units 16:48 21:08 05:23 WBC 37.3 H* (3.8-10.6) k/uL RBC 4.08 L (4.30-5.90) m/uL Hgb 8.9 L (13.0-17.5) gm/dL Hct 31.4 L (39.0-53.0) % MCV 77.0 L (80.0-100.0) fL MCH 21.9 L (25.0-35.0) pg MCHC 28.4 L (31.0-37.0) g/dL Neutrophils # 36.1 H (1.3-7.7) k/uL Lymphocytes # 0.4 L (1.0-4.8) k/uL Sodium (137-145) mmol/L Chloride (98-107) mmol/L Carbon Dioxide (22-30) mmol/L BUN (9-20) mg/dL Glucose (74-99) mg/dL POC Glucose (mg/dL) 125 H 123 H (75-99) mg/dL Calcium (8.4-10.2) mg/dL Alkaline Phosphatase (38-126) U/L Total Protein (6.3-8.2) g/dL Albumin (3.5-5.0) g/dL Amylase (30-110) U/L Lipase (23-300) U/L 04/20/17 04/20/17 04/20/17 Range/Units 05:23 05:56 12:22 WBC (3.8-10.6) k/uL RBC (4.30-5.90) m/uL Hgb (13.0-17.5) gm/dL Hct (39.0-53.0) % MCV (80.0-100.0) fL MCH (25.0-35.0) pg MCHC (31.0-37.0) g/dL Neutrophils # (1.3-7.7) k/uL Lymphocytes # (1.0-4.8) k/uL Sodium 152 H (137-145) mmol/L Chloride 121 H* (98-107) mmol/L Carbon Dioxide 18 L (22-30) mmol/L BUN 38 H (9-20) mg/dL Glucose 104 H (74-99) mg/dL POC Glucose (mg/dL) 107 H 111 H (75-99) mg/dL Calcium 7.9 L (8.4-10.2) mg/dL Alkaline Phosphatase 163 H (38-126) U/L Total Protein 4.3 L (6.3-8.2) g/dL Albumin 1.9 L (3.5-5.0) g/dL Amylase 353 H* (30-110) U/L Lipase 2730 H (23-300) U/L Microbiology - Last 24 Hours (Table) 04/17/17 12:02 Blood Culture - Preliminary Blood No Growth after 48 hours 04/17/17 12:02 Blood Culture - Preliminary Blood No Growth after 48 hours Assessment and Plan (1) Acute pancreatitis Narrative/Plan: Still suspect pancreatic ascites related to a rupture of one of the large pseudocysts as the most likely etiology for the patient's decompensation. Underlying malignancy remains within the differential. Await paracentesis studies. Discussed with Dr. Steinberg regarding possible transfer to tertiary care center for hepatobiliary evaluation. Current Visit: Yes Status: Acute Code(s): K85.90 - ACUTE PANCREATITIS WITHOUT NECROSIS OR INFECTION, UNSP SNOMED Code(s): 448037108
--- NOTE | 2017-04-20 13:16 | US ---
EXAMINATION TYPE: US paracentesis abd w/image DATE OF EXAM: 04/20/2017 COMPARISON: NONE HISTORY: Ascites. PROCEDURE: Maximal barrier technique was utilized. The skin overlying a suitable pocket of fluid was localized with ultrasound and the overlying skin was prepped and draped. Ultrasound was utilized with sterile technique. Lidocaine was used for local anesthesia and a skin jose made with a scalpel. Catheter was advanced under direct ultrasound guidance into a suitable pocket of fluid and approximately 0.16 lite rs of dark-colored fluid were removed. Catheter was withdrawn and hemostasis achieved. There is no immediate complication; the patient is discharged in stable condition. IMPRESSION: STATUS POST ULTRASOUND GUIDED PARACENTESIS FOR PALLIATION OF ASCITES. THIS PROCEDURE WA S PERFORMED BY THE UNDERSIGNED. Specimen sent for laboratory analysis.
[2017-04-20 15:25] LABS: Appearance,BF Bloody; Color,BF Red; Nucleated Cells, Body Fluid 18530 /uL; RBC, Body Fluid 40000 /uL
[2017-04-20 15:44] LABS: Mononuclear WBC,Body Fluid 21 %; Polynuclear WBC,Body Fluid 78 %; Total Cells Counted,Body Fluid 100
--- NOTE | 2017-04-20 16:18 | P.TRANS ---
Providers Date of admission: 04/15/17 08:59 Expected date of discharge: 04/20/17 Attending physician: Marcio Mitchell Consults: 04/15/17 08:58 Consult Physician Routine Consulting Provider: Filomena Sherman Consult Reason/Comments: Acute pancreatitis with pseudocyst Do you want consulting provider notified?: Yes 04/17/17 11:49 Consult Physician Routine Consulting Provider: Pelon Wiley Consult Reason/Comments: suspect SIRS/SEPSIS Do you want consulting provider notified?: Yes 04/19/17 11:46 Consult Physician Routine Consulting Provider: Abelardo Rodríguez Consult Reason/Comments: air in gallbladder, possible fistula Do you want consulting provider notified?: Yes Primary care physician: [facility] Course: 71-year-old male who presented to the emergency room on 04/15/2017 with a chief complaint of generalized abdominal pain x 1 day. The patient also had complaints of nausea but denies emesis. Reports decreased oral intake secondary to abdominal pain. He denied chest pain or pressure. Denies shortness of breath. No constipation or diarrhea. In the emergency room, chest x-ray was completed revealing bibasilar subsegmental dependent atelectasis. KUB x-ray was completed revealing nonobstructive bowel gas pattern. A computed tomography scan of the abdomen and pelvis was completed revealing findings consistent with pancreatitis and probable pseudocyst and ascites. Laboratory studies revealed white count of 11 , hemoglobin 10.9, platelet count 588, INR 1.1, sodium 140, potassium 3.9, BUN 11, creatinine 0.85, lactic acid 1.9, AST 11, ALC 19, troponin negative 1, triglycerides 79, amylase 654, and lipase 3977. He was admitted to the hospital under the care of Dr. Mitchell. Consultations were placed to gastroenterology. The patient had a previous admission from 02/08/2017 until 02/11/2017 secondary to acute pancreatitis and pneumonia. During that hospitalization, the patient underwent a computed tomography scan that Moderate wall thickening of the distal esophagus was seen with a possible moderately sized hiatal hernia. Edema and fluid tracking along the upper abdominal retroperitoneum, anterior margin of the pancreas, and in the gastrohepatic ligament region in which pancreatitis could not be excluded. Additionally there was poor delineation between the fluid in the posterior gastric fundus and which peptic ulcer disease could not be excluded. There were also scattered pulmonary nodules seen measuring up to 6 mm. Lastly there was a 1.2 cm hypoechoic lesion in the pancreatic tail noted. He underwent an EGD which revealed small hiatal hernia, no evidence of esophagitis or complicated reflux, and mild antral gastritis. Abnormalities that were found on the computed tomography scan were not substantiated during EGD. 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 The patient underwent an outpatient MRCP on 03/03/2017 which revealed normal- appearing common bile duct, 7-10 cm cystic mass in the pancreatic region, and additional satellite areas of cystic changes in the periportal region and near the pancreatic tail, right renal marked atrophy with compensatory hypertrophy of left kidney, stable 1.5 cm left adrenal mass unchanged from 2009, and small bilateral pleural effusions. The patient also underwent an outpatient computed tomography scan of the abdomen on 03/21/2017 which revealed findings suggestive of moderate acute on chronic pancreatitis with several pseudocyst or lobulated larger pseudocyst suspected, acute peripancreatitis fluid collection, significant mass effect on distal esophagus which shows severe wall thickening. In addition to the patient's history of pancreatitis and pneumonia, he also has a history of gastroesophageal reflux disease, hypertension, diverticulosis, laminectomy. He states that he is a former cigarette smoker and quit smoking cigarettes in 2001 and he has been smoking a pipe since that time. The patient has a history of alcohol abuse. He reports that he used to be a very heavy drinker but recently has been consuming 3-8 beers per day. He states that he has not consumed alcohol within the last 3 weeks. 04/15/2017 The patient was seen and examined at the bedside by Dr. Mitchell. He states he is having severe abdominal pain at this time. He denies nausea or vomiting currently. Denies chest pain or shortness of breath. Denies constipation or diarrhea. His vital signs have remained stable. He is afebrile. He denies additional concerns at this time. 04/16/2017-Notes per Dr. Mitchell The patient continues to experience pain. Overnight he had urinary retention, requiring a straight cath 2. The third time a Mendieta catheter was placed. He continues to complain of epigastric abdominal pain. Nursing reports that he receives Dilaudid and then falls asleep.their consultation was reviewed.he remains nothing by mouth. He denies a bowel movement. He denies any chest pains, pressures, shortness of breath. 04/17/2017-Notes per Dr. Mitchell Patient is pain is improved. He continues on Dilaudid as needed. He remains on the CEWA protocol. His white count was elevated. Respiratory therapy indicate a 90% pulse oximetry on 2 L O2 this morning. He continues to have Mendieta catheter. I'm unable to locate a urinalysis. He is complaining of some coughing as well today. He denies any chest pains, pressures, or significant shortness of breath. He does have pain with motion in the midepigastrium. He is tolerating ice chips. 04/18/2017 Patient seen and examined at the bedside. Nursing staff that the patient recently received Ativan for a CIWA score of 10 and states the patient was very anxious, diaphoretic, and very restless/fidgety. Chest xray was completed on revealing worsening bibasilar airspace disease. He remains on 2 L nasal cannula with oxygen saturations around 92%. Urinalysis completed yesterday reveals 1+ protein, 1+ ketones, moderate blood, small leukocyte esterase, RBC of 81, WBC of 13, rare bacteria and rare mucus. Urine culture is negative at the 18 hour murphy. Blood cultures were completed on 04/17/2017 and results are currently pending. Infectious disease has been consulted for further evaluation. He was started on Zosyn. His white count has increased to 23.4 from 22.9. 04/19/2017 Patient seen and examined at the bedside on rounds with Dr. Steinberg. Patient is lethargic, but has recently received IV pain medication per nursing. He is arousable to verbal stimuli. He is speaking with one to two word answers when asked questions. He states he feels his pain has improved slightly. He continues to be nauseous but has not had any episodes of emesis. His basin at the bedside has a small amount of green tinged sputum present. He has an indwelling urinary catheter with clear mateusz urine. He complains of constipation. He received a dulcolax suppository yesterday but has not had a bowel movement. His abdomen does appear slightly more distended and firm today. His WBC has increased from 23.4 to 35.0. He is afebrile. Infectious disease has been following. He is on Zosyn currently. He has been tachycardic with a rate in the 110s. Lopressor was added yesterday to regimen. Potassium this morning is low at 3.1. Sodium is elevated at 152. Amylase has increased from 233 to 286 and lipase has increased from 752 to 1963. 04/20/2017 Patient underwent computed tomography scan of the chest, abdomen, and pelvis on 04/19/2017 which revealed decreasing size and enhancement of pancreatic fluid collections likely pseudocyst, no air within the gallbladder with possible fistula formation, diffuse dilation of the small bowel favoring severe reactive ileus, moderate volume abdominal pelvic ascites and mesenteric congestion, moderate pleural effusions, bilateral atelectasis, bilateral bases suspicious for pneumonia, inflammatory pneumonitis also possibility, redemonstration of a cystic-appearing pancreatic lesion, and dilated and fluid-filled esophagus. General surgery was consulted and patient was evaluated by Dr. Rodríguez who suspects pancreatic ascites may be related to a rupture of one of the large pseudocyst. NG tube was inserted yesterday and patient has had over 2 L of dark bilious output. His abdomen continues to be very firm and tender to even light palpation. He is continuing to require oxygen to maintain oxygen saturations greater than 92%. Patient underwent diagnostic paracentesis today with removal of 0.16 L of dark colored fluid. Pathology is currently pending. The patient's condition has continued to decline. His white count has increased to 37.3. Amylase has increased to [address] Steinberg spoke with the patient's mother and sister on the phone regarding patient's condition. Dr. Steinberg spoke with the family regarding patient declining condition, possible malignancy, code status, and plan of care. Patient's family would like everything possible done for the patient including transfer to [facility]. The decision was made to transfer the patient to [facility] based upon the patient's condition and family's wishes. Patient Condition at Discharge: Poor Plan - Transfer Summary Transfer Medications: Active Medications Generic Name Dose Route Start Last Admin Trade Name Freq PRN Reason Stop Dose Admin Amlodipine Besylate 5 mg 04/15/17 21:00 04/20/17 08:46 Norvasc PO 5 mg BID BENJAMÍN Administration Baclofen 10 mg 04/18/17 16:45 04/18/17 18:09 Lioresal PO 10 mg QID PRN Administration Muscle Spasm Hydromorphone HCl 1 mg 04/15/17 08:57 04/19/17 09:06 Dilaudid IVP 1 mg Q3HR PRN Administration Severe Pain Hydromorphone HCl 0.5 mg 04/15/17 16:14 04/20/17 10:01 Dilaudid IVP 0.5 mg Q3HR PRN Administration Moderate Pain Piperacillin/Tazobactam/ 50 mls @ 12.5 mls/hr 04/17/17 12:00 04/20/17 12:27 Dextrose 3.375 gm/ IV Solution IVPB 12.5 mls/hr Q8H BENJAMÍN Administration Potassium Chloride/Dextrose 1,000 mls @ 100 mls/hr 04/20/17 09:15 04/20/17 12 :27 D5%-Kcl 20 Meq/L Iv Solution IV 100 mls/hr .Q10H BENJAMÍN Administration Lisinopril 40 mg 04/15/17 11:00 04/20/17 08:46 Zestril PO 40 mg DAILY BENJAMÍN Administration Lorazepam 1 mg 04/15/17 12:55 04/18/17 13:28 Ativan IV 1 mg Q2HR PRN Administration CIWA 8 or 9 Lorazepam 1 mg 04/15/17 12:55 Ativan IV Q1HR PRN CIWA 10 to 15 Melatonin 10 mg 04/15/17 21:00 04/19/17 23:43 Melatonin PO 10 mg HS BENJAMÍN Administration Metoprolol Tartrate 25 mg 04/20/17 21:00 Lopressor PO BID BENJAMÍN Miscellaneous Information 1 each 04/19/17 09:16 Potassium Per Protocol MISCELLANE DAILY PRN Per Protocol Protocol Miscellaneous Information 1 each 04/19/17 09:41 Rx Info: Iv Contrast Was Given MISCELLANE 04/21/17 09:42 DAILY PRN Per Protocol Naloxone HCl 0.2 mg 04/15/17 08:57 Narcan IV Q2M PRN Opioid Reversal Ondansetron HCl 4 mg 04/15/17 08:57 04/19/17 06:15 Zofran IVP 4 mg Q8HR PRN Administration Nausea And Vomiting Pantoprazole Sodium 40 mg 04/15/17 11:00 04/20/17 08:45 Protonix IVP 40 mg DAILY BENJAMÍN Administration Thiamine HCl 100 mg 04/15/17 17:00 04/20/17 08:46 Vitamin B-1 PO 100 mg BID@1200,1700 BENJAMÍN Administration Follow up Appointment(s)/Referral(s): Tc Steinberg Jr, DO [Primary Care Provider] - 1 Week Filomena Sherman MD [STAFF PHYSICIAN] - 2 Weeks Patient Instructions/Handouts: Pancreatitis (DC) Activity/Diet/Wound Care/Special Instructions: NO smoking, cessation information provided. Activity as tolerated. Soft bland diet. Discharge Disposition: OTHER INSTITUTION NOT DEFINED
[2017-04-20] MEDS: HYDROmorphone 2 MG/ML 1 ML SYRINGE IVP PRN (16:31)
[2017-04-20 16:43] LABS: Glucose,Whole Blood 139 mg/dL (75-99)
[2017-04-20 17:34] VITALS: BP 125/68; PULSE 107; RESP 28; TEMP 97
[2017-04-20 20:42] LABS: Cholesterol,Body Fluid 29 mg/dL; Lipase, Body Fluid 578 U/L; Total Protein, Body Fluid 2700 mg/dL
[2017-04-20] MEDS ORDERED: METOPROLOL TARTRATE 25 MG TAB PO SCH (21:00)
== END 2017-04-20 18:20 | disposition short-term general hospital (02) | DRG 871 ==
LOC: EC 06:26 → 4MS4W 08:59 → 6SEL 04-19 10:22
PROVIDERS: ADMIT Family Medicine; ATTEND Family Medicine
PROC: 0W9G3ZZ Drainage of Peritoneal Cavity, Percutaneous Approach (ICD-10-PCS; principal; 2017-04-20)
DX: A41.9 Sepsis, unspecified organism (principal); K85.90 Acute pancreatitis without necrosis or infection, unspecified; J96.01 Acute respiratory failure with hypoxia; E87.0 Hyperosmolality and hypernatremia; F10.10 Alcohol abuse, uncomplicated; D50.9 Iron deficiency anemia, unspecified; R18.8 Other ascites; K86.3 Pseudocyst of pancreas; J98.11 Atelectasis; K59.00 Constipation, unspecified; F17.290 Nicotine dependence, other tobacco product, uncomplicated; I10 Essential (primary) hypertension; R45.1 Restlessness and agitation; E87.6 Hypokalemia; R41.0 Disorientation, unspecified; R61 Generalized hyperhidrosis; R33.9 Retention of urine, unspecified; K21.9 Gastro-esophageal reflux disease without esophagitis; Z79.899 Other long term (current) drug therapy; Z80.9 Family history of malignant neoplasm, unspecified; Z87.19 Personal history of other diseases of the digestive system; Z90.89 Acquired absence of other organs; Z87.11 Personal history of peptic ulcer disease; Z87.01 Personal history of pneumonia (recurrent)
CPT/HCPCS: 36415; 49083; 71046; 71260; 74018; 74177; 80048; 80053; 81001; 82042; 82150; 82465; 82550; 82553; 82787; 82945; 83605; 83615; 83690; 83735; 84145; 84157; 84478; 84484; 85025; 85610; 85730; 86038; 86301; 87040; 87070; 87075; 87077; 87086; 87186; 87205; 88108; 88305; 89050; 94760; 96361; 96374; 99285